=== PATIENT | male | born 1960 | race Caucasian/White ===

== ENCOUNTER 2017-03-14 14:07 | Inpatient (IN) ==
--- NOTE | 2017-03-14 14:38 | Emergency Department Note ---
Disposition Clinical Impression: Acute occipital temporal infarction, Acute renal insufficiency, Hyperglycemia, Dehydration Altered mental status Qualifiers: Altered mental status type: unspecified Qualified Code(s): R41.82 - Altered mental status, unspecified Disposition: Admitted As Inpatient General Adult HPI - General Chief complaint: ED Altered Mental Status Stated complaint: confusion this morning Time Seen by Provider: 03/14/17 14:15 Source: EMS Mode of arrival: EMS Limitations: no limitations Nursing Notes Reviewed: Yes Vital Signs Reviewed: Yes - History of Present Illness HPI Narrative: Mr. Jackson, a 56yo male, presents from home via EMS for evaluation of reported confusion. He was found in his apartment by his land lord who called EMS. [facility]; he completed his course of unknown antibiotic. He was found in his chair by EMS and has no recollection of events prior to that. Last known well was last night before going to bed (per patient). There is no family or other adult accompanying the patient. Patient is a poor historian. PMH unknown to him. Medications unknown to him. PMH: HTN, DM, CABG, CVA. ROS: POS: Headache Neg: fever, chills, nausea, vomiting, CP, dyspnea Pain Scale: 0 - Related Data Home Medications Medication Instructions Recorded Confirmed Acetaminophen [Tylenol] 1,000 mg PO BID PRN 03/14/17 03/14/17 Amoxicillin/Clavulanate [Augmentin] 875 mg PO BID 03/14/17 03/14/17 Aspirin Enteric Coated [Aspirin EC] 81 mg PO DAILY 03/14/17 03/14/17 Atorvastatin Calcium [Lipitor] 80 mg PO HS 03/14/17 03/14/17 Benzonatate [Tessalon] 100 mg PO Q8H PRN 03/14/17 03/14/17 Cholecalciferol (D-3) [Vitamin D] 2,000 unit PO DAILY 03/14/17 03/14/17 Clopidogrel [Plavix] 75 mg PO DAILY 03/14/17 03/14/17 Docusate [Colace] 200 mg PO DAILY PRN 03/14/17 03/14/17 Finasteride [Proscar] 5 mg PO DAILY 03/14/17 03/14/17 Gabapentin [Neurontin] 300 mg PO TID 03/14/17 03/14/17 Insulin NPH Human Isophane 30 unit SQ QAM 03/14/17 03/14/17 [Novolin N] Insulin NPH Human Isophane 35 unit SQ QPM 03/14/17 03/14/17 [Novolin N] Lisinopril [Zestril] 20 mg PO DAILY 03/14/17 03/14/17 Metoprolol [Lopressor] 125 mg PO BID 03/14/17 03/14/17 Nitroglycerin [Nitrostat] 0.4 mg SL Q5M PRN 03/14/17 03/14/17 Propylene Glycol/Peg 400 [Systane 1 drop BOTH EYES QID 03/14/17 03/14/17 0.3-0.4% Eye Drops] glipiZIDE [Glipizide] 20 mg PO BID 03/14/17 03/14/17 Allergies Allergy/AdvReac Type Severity Reaction Status Date / Time Iodinated Contrast- Oral and Allergy Rash Verified 03/14/17 15:53 IV Dye All systems ED: reviewed and negative except as stated. 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 He is not oriented to hospital, today's date, president, or recent hurricane events in [place]. He is in no acute distress. HEENT: No facial asymmetry. Head is normocephalic and atraumatic. PERRLA, EOMI. Nasal turbinates moist and pink. Posterior pharynx without exudates or cobblestoning. Trachea midline. Bilateral tympanic membranes completely obscured by cerumen. Cardiovascular: Heart regular rate and rhythm without clicks, rubs, gallops, or murmurs. No JVD. PMI nondisplaced. Pedal edema. Bilateral posterior tibial pulses 2/4 equal. Respiratory: Symmetric chest rise with good respiratory effort. Bilateral breath sounds are clear without wheezing, crackles, or rhonchi. Abdomen: Bowel sounds present normoactive x-4 quadrants. Abdomen is soft, nondistended. He has a periumbilical hernia which is reducible and tender; otherwise no abdominal tenderness. Musculoskeletal: Muscle strength 5/5 and symmetric bilaterally in upper and lower extremities. DTRs 2/4 and symmetric bilaterally in upper and lower extremities. Neuro: Cranial nerves II through XII without deficit. Sensation light touch intact. GCS 15. Negative Romberg. Patient is able to ambulate without difficulty. Psych: Patient's affect is appropriate for situation. - General Limitations: no limitations General appearance: alert, in no apparent distress Course Course Narrative: Patient presents from home via EMS where his landlord who is doing a well check found the patient sitting in his chair in his apartment and called EMS. Patient 's last recollection is going to bed last night. We have no past medical history within the [facility] system; patient is followed by [facility]. Patient is a poor historian and is unsure of his medications or the specifics of his past medical history. He is able answer some questions sometimes and other questions at other times. At no time is he able to answer all questions regarding the situation of his visit. Patient was treated one month ago for pneumonia; prescribed outpatient antibiotics which he reportedly completed. His only complaint at this time is congestion. Physical exam is grossly unremarkable with the exception of a umbilical hernia that is reducible and tender. 15:35 I spoke with [facility]. Patient's CT head without contrast is concerning for a small left subdural lobe infarct that appears to be acute. Because there is nobody to accompany the patient to provide a more accurate history and, per patient, his last known normal was last night (greater than 12 hours ago), he is not a candidate for TPA. I spoke with Dr. Borges of neurology to discuss the patient's clinical picture. He decreased TPA is contraindicated given the unknown onset of symptoms. I spoke with the admitting hospitalist who agrees to accept the patient with neuro consult. Vital Signs Temperature 98.1 F 03/14/17 14:09 Pulse Rate 102 03/14/17 14:09 Respiratory Rate 14 03/14/17 14:09 Blood Pressure 140/103 03/14/17 14:09 O2 Sat by Pulse Oximetry 94 03/14/17 14:09 Temperature 98.2 F 03/14/17 19:02 Pulse Rate 82 03/14/17 19:02 Respiratory Rate 20 03/14/17 19:02 Blood Pressure 149/109 03/14/17 19:02 O2 Sat by Pulse Oximetry 94 03/14/17 14:09 Oxygen Delivery Oxygen Delivery Room Air Medical Decision Making - Lab Data Lab results reviewed: Yes I reviewed the patient's lab results. Result diagrams: 03/14/17 14:53 03/14/17 14:53 Lab Results 03/14/17 03/14/17 03/14/17 Range/Units 14:23 14:53 14:53 WBC 10.7 (4.3-11.1) K/mcL RBC 5.47 (4.19-5.50) M/mcL Hgb 15.4 (12.9-16.9) g/dL Hct 45.9 (37.5-50.1) % MCV 83.9 (83.0-100.0) fL MCH 28.2 (28.0-33.3) pg MCHC 33.6 (31.6-35.5) g/dL RDW 13.0 (11.5-14.5) % Plt Count 238 (140-400) K/mcL MPV 10.1 (9.4-12.4) fL Immature Gran % 0.4 (0-4) % Seg Neutrophils % 73.6 % Lymphocytes % 18.8 % Monocytes % 6.1 % Eosinophils % 0.5 % Basophils % 0.6 % Neutrophils # 7.9 (1.6-8.9) K/mcL Lymphocytes # 2.0 (0.6-4.6) K/mcL Monocytes # 0.7 (0.0-1.3) K/mcL Eosinophils # 0.1 (0.0-0.6) K/mcL Basophils # 0.1 (0.0-0.2) K/mcL Carboxyhemoglobin (0-5) % Sodium 136 (136-145) mEq/L Potassium 5.0 H (3.5-4.5) mEq/L Chloride 103 (98-109) mEq/L Carbon Dioxide 23 (19-29) mEq/L BUN 27 H (8-26) mg/dL Creatinine 1.98 H (0.72-1.25) mg/dL Est GFR ( Amer) 42 L (> 60) Est GFR (Non-Af Amer) 35 L (> 60) BUN/Creatinine Ratio 14 (6-26) Glucose 263 H (70-99) mg/dL POC Glucose 246 H (58-89) Est Mean Plasma Glucose mg/dl Hemoglobin A1c ( - 5.6) % Calculated Osmolality 296 (280-300) Lactic Acid (0.5-2.2) mmol/L Calcium 10.6 (8.6-10.8) mg/dL Total Bilirubin 0.7 (0.2-1.2) mg/dL Direct Bilirubin 0.3 (0.0-0.5) mg/dL Indirect Bilirubin 0.4 (0.0-1.2) mg/dL AST 14 (5-34) Units/L ALT 9 (0-55) Units/L Alkaline Phosphatase 119 (38-126) Units/L Ammonia (18-72) mcmol/L Troponin I (0-0.03) ng/mL Serum Total Protein 8.3 (6.0-8.3) g/dL Albumin 3.4 L (3.5-5.0) g/dL Globulin 4.9 H (2.4-3.5) g/dL Albumin/Globulin Ratio 0.7 L (1.1-2.2) Urine Color (Yellow) Urine Clarity (Clear) Urine pH (5.0-8.0) pH Units Ur Specific [place] (1.010-1.025) Urine Protein (Neg-Trace) mg/dL Urine Glucose (UA) (Normal) mg/dL Urine Ketones (Negative) mg/dL Urine Blood (Negative) Urine Nitrite (Negative) Urine Bilirubin (Negative) Urine Urobilinogen (Normal) mg/dL Ur Leukocyte Esterase (Negative) Urine Microscopic RBC (0-3) per hpf Urine Microscopic WBC (0-3) per hpf Ur Squamous Epith Cells (None-Few) per lpf Urine Bacteria (None-Few) per hpf Hyaline Casts (None-Few) per lpf Ur Culture Indicated? (NO) Urine Opiates Screen (Uyeydj=992) ng/mL Ur Barbiturates Screen (Aubxfg=259) ng/mL Ur Phencyclidine Scrn (Cutoff=25) ng/mL Ur Amphetamines Screen (Jfzhmo=7759) ng/mL U Benzodiazepines Scrn (Fefvvj=145) ng/mL Urine Cocaine Screen (Cutoff= 300) ng/mL U Marijuana (THC) Screen (Cutoff = 50) ng/mL Ethyl Alcohol < 10 (0-10) mg/dL 03/14/17 03/14/17 03/14/17 Range/Units 14:53 14:53 14:53 WBC (4.3-11.1) K/mcL RBC (4.19-5.50) M/mcL Hgb (12.9-16.9) g/dL Hct (37.5-50.1) % MCV (83.0-100.0) fL MCH (28.0-33.3) pg MCHC (31.6-35.5) g/dL RDW (11.5-14.5) % Plt Count (140-400) K/mcL MPV (9.4-12.4) fL Immature Gran % (0-4) % Seg Neutrophils % % Lymphocytes % % Monocytes % % Eosinophils % % Basophils % % Neutrophils # (1.6-8.9) K/mcL Lymphocytes # (0.6-4.6) K/mcL Monocytes # (0.0-1.3) K/mcL Eosinophils # (0.0-0.6) K/mcL Basophils # (0.0-0.2) K/mcL Carboxyhemoglobin 3.2 (0-5) % Sodium (136-145) mEq/L Potassium (3.5-4.5) mEq/L Chloride (98-109) mEq/L Carbon Dioxide (19-29) mEq/L BUN (8-26) mg/dL Creatinine (0.72-1.25) mg/dL Est GFR ( Amer) (> 60) Est GFR (Non-Af Amer) (> 60) BUN/Creatinine Ratio (6-26) Glucose (70-99) mg/dL POC Glucose (58-89) Est Mean Plasma Glucose mg/dl Hemoglobin A1c ( - 5.6) % Calculated Osmolality (280-300) Lactic Acid (0.5-2.2) mmol/L Calcium (8.6-10.8) mg/dL Total Bilirubin (0.2-1.2) mg/dL Direct Bilirubin (0.0-0.5) mg/dL Indirect Bilirubin (0.0-1.2) mg/dL AST (5-34) Units/L ALT (0-55) Units/L Alkaline Phosphatase (38-126) Units/L Ammonia 25 (18-72) mcmol/L Troponin I 0.01 (0-0.03) ng/mL Serum Total Protein (6.0-8.3) g/dL Albumin (3.5-5.0) g/dL Globulin (2.4-3.5) g/dL Albumin/Globulin Ratio (1.1-2.2) Urine Color (Yellow) Urine Clarity (Clear) Urine pH (5.0-8.0) pH Units Ur Specific [place] (1.010-1.025) Urine Protein (Neg-Trace) mg/dL Urine Glucose (UA) (Normal) mg/dL Urine Ketones (Negative) mg/dL Urine Blood (Negative) Urine Nitrite (Negative) Urine Bilirubin (Negative) Urine Urobilinogen (Normal) mg/dL Ur Leukocyte Esterase (Negative) Urine Microscopic RBC (0-3) per hpf Urine Microscopic WBC (0-3) per hpf Ur Squamous Epith Cells (None-Few) per lpf Urine Bacteria (None-Few) per hpf Hyaline Casts (None-Few) per lpf Ur Culture Indicated? (NO) Urine Opiates Screen (Grovqy=009) ng/mL Ur Barbiturates Screen (Ybyjsp=774) ng/mL Ur Phencyclidine Scrn (Cutoff=25) ng/mL Ur Amphetamines Screen (Qoqmcg=3802) ng/mL U Benzodiazepines Scrn (Jccjhv=799) ng/mL Urine Cocaine Screen (Cutoff= 300) ng/mL U Marijuana (THC) Screen (Cutoff = 50) ng/mL Ethyl Alcohol (0-10) mg/dL 03/14/17 03/14/17 03/14/17 Range/Units 14:53 14:53 15:28 WBC (4.3-11.1) K/mcL RBC (4.19-5.50) M/mcL Hgb (12.9-16.9) g/dL Hct (37.5-50.1) % MCV (83.0-100.0) fL MCH (28.0-33.3) pg MCHC (31.6-35.5) g/dL RDW (11.5-14.5) % Plt Count (140-400) K/mcL MPV (9.4-12.4) fL Immature Gran % (0-4) % Seg Neutrophils % % Lymphocytes % % Monocytes % % Eosinophils % % Basophils % % Neutrophils # (1.6-8.9) K/mcL Lymphocytes # (0.6-4.6) K/mcL Monocytes # (0.0-1.3) K/mcL Eosinophils # (0.0-0.6) K/mcL Basophils # (0.0-0.2) K/mcL Carboxyhemoglobin (0-5) % Sodium (136-145) mEq/L Potassium (3.5-4.5) mEq/L Chloride (98-109) mEq/L Carbon Dioxide (19-29) mEq/L BUN (8-26) mg/dL Creatinine (0.72-1.25) mg/dL Est GFR ( Amer) (> 60) Est GFR (Non-Af Amer) (> 60) BUN/Creatinine Ratio (6-26) Glucose (70-99) mg/dL POC Glucose (58-89) Est Mean Plasma Glucose 275 mg/dl Hemoglobin A1c 11.2 H ( - 5.6) % Calculated Osmolality (280-300) Lactic Acid 1.4 (0.5-2.2) mmol/L Calcium (8.6-10.8) mg/dL Total Bilirubin (0.2-1.2) mg/dL Direct Bilirubin (0.0-0.5) mg/dL Indirect Bilirubin (0.0-1.2) mg/dL AST (5-34) Units/L ALT (0-55) Units/L Alkaline Phosphatase (38-126) Units/L Ammonia (18-72) mcmol/L Troponin I (0-0.03) ng/mL Serum Total Protein (6.0-8.3) g/dL Albumin (3.5-5.0) g/dL Globulin (2.4-3.5) g/dL Albumin/Globulin Ratio (1.1-2.2) Urine Color Yellow (Yellow) Urine Clarity Clear (Clear) Urine pH 5.5 (5.0-8.0) pH Units Ur Specific [place] > 1.030 H (1.010-1.025) Urine Protein 100 H (Neg-Trace) mg/dL Urine Glucose (UA) >=1000 H (Normal) mg/dL Urine Ketones 15 H (Negative) mg/dL Urine Blood Negative (Negative) Urine Nitrite Negative (Negative) Urine Bilirubin Small H (Negative) Urine Urobilinogen Normal (Normal) mg/dL Ur Leukocyte Esterase Negative (Negative) Urine Microscopic RBC 5-15 H (0-3) per hpf Urine Microscopic WBC 0-3 (0-3) per hpf Ur Squamous Epith Cells Many H (None-Few) per lpf Urine Bacteria None Seen (None-Few) per hpf Hyaline Casts Few (None-Few) per lpf Ur Culture Indicated? NO (NO) Urine Opiates Screen (Nlvubv=194) ng/mL Ur Barbiturates Screen (Gllglc=554) ng/mL Ur Phencyclidine Scrn (Cutoff=25) ng/mL Ur Amphetamines Screen (Oajtpo=6419) ng/mL U Benzodiazepines Scrn (Ufwsyp=997) ng/mL Urine Cocaine Screen (Cutoff= 300) ng/mL U Marijuana (THC) Screen (Cutoff = 50) ng/mL Ethyl Alcohol (0-10) mg/dL 03/14/17 Range/Units 15:28 WBC (4.3-11.1) K/mcL RBC (4.19-5.50) M/mcL Hgb (12.9-16.9) g/dL Hct (37.5-50.1) % MCV (83.0-100.0) fL MCH (28.0-33.3) pg MCHC (31.6-35.5) g/dL RDW (11.5-14.5) % Plt Count (140-400) K/mcL MPV (9.4-12.4) fL Immature Gran % (0-4) % Seg Neutrophils % % Lymphocytes % % Monocytes % % Eosinophils % % Basophils % % Neutrophils # (1.6-8.9) K/mcL Lymphocytes # (0.6-4.6) K/mcL Monocytes # (0.0-1.3) K/mcL Eosinophils # (0.0-0.6) K/mcL Basophils # (0.0-0.2) K/mcL Carboxyhemoglobin (0-5) % Sodium (136-145) mEq/L Potassium (3.5-4.5) mEq/L Chloride (98-109) mEq/L Carbon Dioxide (19-29) mEq/L BUN (8-26) mg/dL Creatinine (0.72-1.25) mg/dL Est GFR ( Amer) (> 60) Est GFR (Non-Af Amer) (> 60) BUN/Creatinine Ratio (6-26) Glucose (70-99) mg/dL POC Glucose (58-89) Est Mean Plasma Glucose mg/dl Hemoglobin A1c ( - 5.6) % Calculated Osmolality (280-300) Lactic Acid (0.5-2.2) mmol/L Calcium (8.6-10.8) mg/dL Total Bilirubin (0.2-1.2) mg/dL Direct Bilirubin (0.0-0.5) mg/dL Indirect Bilirubin (0.0-1.2) mg/dL AST (5-34) Units/L ALT (0-55) Units/L Alkaline Phosphatase (38-126) Units/L Ammonia (18-72) mcmol/L Troponin I (0-0.03) ng/mL Serum Total Protein (6.0-8.3) g/dL Albumin (3.5-5.0) g/dL Globulin (2.4-3.5) g/dL Albumin/Globulin Ratio (1.1-2.2) Urine Color (Yellow) Urine Clarity (Clear) Urine pH (5.0-8.0) pH Units Ur Specific [place] (1.010-1.025) Urine Protein (Neg-Trace) mg/dL Urine Glucose (UA) (Normal) mg/dL Urine Ketones (Negative) mg/dL Urine Blood (Negative) Urine Nitrite (Negative) Urine Bilirubin (Negative) Urine Urobilinogen (Normal) mg/dL Ur Leukocyte Esterase (Negative) Urine Microscopic RBC (0-3) per hpf Urine Microscopic WBC (0-3) per hpf Ur Squamous Epith Cells (None-Few) per lpf Urine Bacteria (None-Few) per hpf Hyaline Casts (None-Few) per lpf Ur Culture Indicated? (NO) Urine Opiates Screen Negative (Magare=010) ng/mL Ur Barbiturates Screen Negative (Lljrya=206) ng/mL Ur Phencyclidine Scrn Negative (Cutoff=25) ng/mL Ur Amphetamines Screen Negative (Jxkiho=3153) ng/mL U Benzodiazepines Scrn Negative (Uobgqx=751) ng/mL Urine Cocaine Screen Negative (Cutoff= 300) ng/mL U Marijuana (THC) Screen Negative (Cutoff = 50) ng/mL Ethyl Alcohol (0-10) mg/dL - Radiology Data Radiology results reviewed: Yes I reviewed the patient's radiology results. Head CT 03/14/17 14:40 IMPRESSION: Focal area of cortical hypoattenuation in the medial aspect of the left occipital lobe may represent an acute infarct. MRI with diffusion-weighted imaging would be more sensitive. Partial opacification of left maxillary sinus and bilateral mastoid air cells may represent chronic mastoiditis and sinusitis. D/ / 03/14/2017 15:41:27 Corey Kam MD / [email or web address] Interpreting Provider: Corey Kam MD Chest X-Ray 03/14/17 14:55 IMPRESSION: No acute disease. D/ / Nigel Bloom MD / Nigel Bloom MD Interpreting Provider: Nigel Bloom MD - EKG Data EKG #1 EKG attestation: Yes I reviewed and interpreted this EKG. EKG results narrative: EKG dated 03/14/17 at 14:14 and interpreted as a sinus rhythm with a rate of 90. Normal intervals. Normal axis. Nonspecific ST-T changes. Right bundle branch block. Compared to previous dated 01/20/2012 showing no acute ischemic changes; right bundle-branch present on comparative EKG. Attestation Statement - Attestation Attestation: I examined this patient and my medical decision-making was reviewed with the Resident Physician, Dr. Mahmood. I agree with the documented findings, disposition and treatment plan as described except to the extent set forth below. Patient is a 56-year-old white male who is brought to us by EMS today with altered mental status. Patient was found by her landlord when he went to check on him as he had not seen him in a few days and found him sitting in a chair with confusion and difficulty describing events that happened prior to the current timeframe. Patient is poor historian and inconsistent with his answers. Despite this his speech is clear, he has no facial droop, he has no focal weakness or deficits on exam. He complains of a chronic cough related to a recent bout of pneumonia for which he had finished antibiotics. Patient with no other complaints. Patient's physical exam findings as documented in the chart. Other than memory loss patient has no acute focal neurologic deficits on examination. EKG did not show any acute findings of ischemia. We initiated a broad workup as it was difficult to ascertain an accurate history. We were contacted by the radiologist in regards to an abnormal head CT which shows an acute occipital infarct. The best we can ascertain from his history is that he consistently reports that he started feeling off 2-3 days ago. His "feeling off" means he was feeling lightheaded and having a coarse sounding cough and mild generalized headache. Patient with stable neurologic exam overtime throughout ED course. Patient also with renal insufficiency. Case was discussed with neurology who was consulate from the ED. Patient was also discussed with the hospitalist who accepted the patient for admission for further evaluation and treatment. Blood pressure is stable. Patient will receive aspirin and IV fluids and will be admitted for further evaluation and management of ED findings
[2017-03-14 15:06] LABS: Basophils # 0.1 K/mcL (0.0-0.2); Basophils % 0.6 %; Eosinophils # 0.1 K/mcL (0.0-0.6); Eosinophils % 0.5 %; Hematocrit 45.9 % (37.5-50.1); Hemoglobin 15.4 g/dL (12.9-16.9); Immature Granulocytes % 0.4 % (0-4); Lymphocytes % 18.8 %; Mean Corpuscular HGB Conc 33.6 g/dL (31.6-35.5); Mean Corpuscular Hemoglobin 28.2 pg (28.0-33.3); Mean Corpuscular Volume 83.9 fL (83.0-100.0); Mean Platelet Volume 10.1 fL (9.4-12.4); Monocytes # 0.7 K/mcL (0.0-1.3); Monocytes % 6.1 %; Neutrophils # 7.9 K/mcL (1.6-8.9); Platelet Count 238 K/mcL (140-400); Red Blood Count 5.47 M/mcL (4.19-5.50); Segmented Neutrophils % 73.6 %
[2017-03-14 15:20] LABS: Alanine Aminotransferase 9 Units/L (0-55); Albumin 3.4 g/dL (3.5-5.0); Albumin/Globulin Ratio 0.7 (1.1-2.2); Alkaline Phosphatase 119 Units/L (38-126); Aspartate Amino Transferase 14 Units/L (5-34); BUN/Creatinine Ratio 14 (6-26); Bilirubin,Direct 0.3 mg/dL (0.0-0.5); Bilirubin,Indirect 0.4 mg/dL (0.0-1.2); Bilirubin,Total 0.7 mg/dL (0.2-1.2); Blood Urea Nitrogen 27 mg/dL (8-26); Calcium 10.6 mg/dL (8.6-10.8); Carbon Dioxide 23 mEq/L (19-29); Chloride 103 mEq/L (98-109); Globulin 4.9 g/dL (2.4-3.5); Glucose 263 mg/dL (70-99); Osmolality,Calculated 296 (280-300); Sodium 136 mEq/L (136-145); Total Protein 8.3 g/dL (6.0-8.3); eGFR For African Americans 42 (> 60); eGFR For Non-African Americans 35 (> 60)
[2017-03-14 15:23] LABS: Ethanol < 10 mg/dL (0-10)
[2017-03-14 15:39] LABS: Bilirubin,Urine Small (Negative); Blood,Urine Negative (Negative); Clarity,Urine Clear (Clear); Color,Urine Yellow (Yellow); Glucose,Urine (UA) >=1000 mg/dL (Normal); Ketones,Urine 15 mg/dL (Negative); Leukocyte Esterase,Urine Negative (Negative); Nitrite,Urine Negative (Negative); PH,Urine 5.5 pH Units (5.0-8.0); Protein,Urine 100 mg/dL (Neg-Trace); Specific Gravity,Urine > 1.030 (1.010-1.025); Urobilinogen,Urine Normal (Normal)
[2017-03-14 15:41] LABS: Bacteria,Urine None Seen per hpf (None-Few); Hyaline Casts,Urine Few per lpf (None-Few); Squamous Epithelial Cell,Urine Many per lpf (None-Few); WBC,Urine 0-3 per hpf (0-3)
[2017-03-14] MEDS ORDERED: Calcium Gluconate 1,000 MG in D5% in Water 100 ML IVPB ONE (15:43)
[2017-03-14 15:44] LABS: Amphetamine Screen,Urine Negative ng/mL (Cutoff=1000); Barbiturate Screen,Urine Negative ng/mL (Cutoff=200); Benzodiazepines Screen,Urine Negative ng/mL (Cutoff=200); Cannabinoid Screen,Urine Negative ng/mL (Cutoff = 50); Cocaine Screen,Urine Negative ng/mL (Cutoff= 300); Opiate Screen,Urine Negative ng/mL (Cutoff=300); Phencyclidine Screen,Urine Negative ng/mL (Cutoff=25)
[2017-03-14] MEDS ORDERED: 0.9 % Sodium Chloride 1,000 ML IVC SCH (15:45)
[2017-03-14] MEDS ORDERED: Aspirin 81 MG TAB.CHEW PO ONE (16:31)
[2017-03-14] MEDS ORDERED: D5% in Water 1,000 ML IVC PRN (20:18)
[2017-03-14] MEDS ORDERED: Naloxone 0.4 MG/ML INJ IVP PRN (20:18)
[2017-03-14] MEDS ORDERED: Dextrose Gel 15 GM PO PRN ×2 (20:18)
[2017-03-14] MEDS ORDERED: Acetaminophen 325 MG TABLET PO PRN (20:18)
[2017-03-14] MEDS ORDERED: Ondansetron 4 MG/2 ML VIAL IVP PRN (20:18)
[2017-03-14] MEDS ORDERED: *HR* Dextrose 50 % in Water (Syg) 50 ML SYRINGE IVP PRN (20:18)
[2017-03-14] MEDS ORDERED: Nitroglycerin 0.4 MG TAB.SUBL SL PRN (20:31)
[2017-03-14 21:09] LABS: Hemoglobin A1C 11.2 %
--- NOTE | 2017-03-14 21:12 | Internal Med History&Physical ---
Date of Encounter: 03/14/17 Time of Encounter: 19:40 Assessment and Plan (1) Stroke Current visit: Yes Status: Suspected 1. Will proceed with stroke work-up and protocol. 2. Presently, patient has no focal deficits. 3. Will order MRI brain, ECHO, and carotid Dopplers. 4. Neurology has been consulted through ER. 5. PT/OT/ST consults. 6. Continue ASA, Plavix, and STATIN. Qualifiers: CVA mechanism: other Qualified Code(s): I63.8 - Other cerebral infarction (2) Acute kidney injury Current visit: Yes Status: Acute 1. Hold KAYLEEN. 2. Gingerly hydrate with IVF. 3. Monitor renal function. 4. May need nephrology consult if does not improve. 5. No old records available presently to compare. (3) Insulin dependent diabetes mellitus Current visit: Yes Status: Chronic 1. Hold oral home meds. 2. Will provide SSI and monitor glucose so as to avoid hypoglycemia. 3. May need to resume home basal dosing insulin (NPH) soon, but will monitor first and adjust as necessary. (4) CAD (coronary artery disease) Current visit: Yes Status: Chronic 1. NO acute process. 2. Continue home meds as appropriate. 3. ECHO ordered for the morning. Qualifiers: Coronary Disease-Associated Artery/Lesion type: [place] artery [place] vs. transplanted heart: [place] heart Associated angina: without angina Qualified Code(s): I25.10 - Atherosclerotic heart disease of [place] coronary artery without angina pectoris (5) DVT prophylaxis Current visit: Yes Status: Acute 1. Heparin SQ. Internal Medicine - H&P: HPI Chief complaint: possible stroke; altered mental status Admitted From: Emergency Dept Plans for Post Hospital Care: Home History of present illness: Mr. Squires is a 56 year old male who presented to the ER today by EMS after his landlord found him confused, disoriented, and initially unresponsive. Workup in the ER was concerning for possible acute stroke. However, his last known well was unknown and presumably last night. Therefore, he was not a TPA candidate. He was admitted to hospitalist service thereafter. Upon my assessment of the patient, he is alert, oriented 3 now, and denies any complaints presently. He is still somewhat confused as to what happened over last 24 hours. However, he does realize he is in the hospital and that he might have had a stroke. He denies any new numbness, weakness, paralysis, dysarthria, dysphagia, and/or paresthesias. He states he had a stroke about a year ago and he does have some memory loss from his old stroke. [facility]. Unfortunately, we have no old records in our system. I reviewed his ER records and imaging studies. He is unable to provide much further history other than history obtained in the ER and by myself. He does state he has been recently treated for pneumonia and is still on antibiotics currently. He denies any chest pain, worsening cough, wheezing, or shortness of breath. He still has a cough but it is slowly subsiding. Past Med Surg Social Fam HX - Past Medical History Attestation: Yes The following information was validated with the patient. Source: patient, other (ER records) Medical history: coronary artery disease, diabetes, hypertension, other (stroke -- one year ago) Psychiatric history: depression - Past Surgical History Surgical History: coronary bypass (CABG) - Social History Smoking Status: Former smoker Smokeless Tobacco Status: No Alcohol use: none Drug use: none Current living situation: Home - Independent Activity Level: Independent ambulation Recent Out of Country Travel Within the Last 8 Weeks: No - Family History Mother History Unknown: Yes Living Status: Father History Unknown: Yes Living Status: Internal Medicine - H&P: Meds Acetaminophen [Tylenol] 1,000 mg PO BID PRN 03/14/17 [History] Amoxicillin/Clavulanate [Augmentin] 875 mg PO BID 03/14/17 [History] Aspirin Enteric Coated [Aspirin EC] 81 mg PO DAILY 03/14/17 [History] Atorvastatin Calcium [Lipitor] 80 mg PO HS 03/14/17 [History] Benzonatate [Tessalon] 100 mg PO Q8H PRN 03/14/17 [History] Cholecalciferol (D-3) [Vitamin D] 2,000 unit PO DAILY 03/14/17 [History] Clopidogrel [Plavix] 75 mg PO DAILY 03/14/17 [History] Docusate [Colace] 200 mg PO DAILY PRN 03/14/17 [History] Finasteride [Proscar] 5 mg PO DAILY 03/14/17 [History] Gabapentin [Neurontin] 300 mg PO TID 03/14/17 [History] Insulin NPH Human Isophane [Novolin N] 30 unit SQ QAM 03/14/17 [History] Insulin NPH Human Isophane [Novolin N] 35 unit SQ QPM 03/14/17 [History] Lisinopril [Zestril] 20 mg PO DAILY 03/14/17 [History] Metoprolol [Lopressor] 125 mg PO BID 03/14/17 [History] Nitroglycerin [Nitrostat] 0.4 mg SL Q5M PRN 03/14/17 [History] Propylene Glycol/Peg 400 [Systane 0.3-0.4% Eye Drops] 1 drop BOTH EYES QID 03/14 [History] glipiZIDE [Glipizide] 20 mg PO BID 03/14/17 [History] 3 Allergy/AdvReac Type Severity Reaction Status Date / Time Iodinated Contrast- Oral and Allergy Rash Verified 03/14/17 15:53 IV Dye - Constitutional Constitutional: no chills, no fever(s), no falls - EENT Eyes: no blurry vision, no change in vision Ears: no ear pain, no tinnitus Nose, mouth and throat: nasal congestion, no sinus pressure, no sore throat - Cardiovascular Cardiovascular ROS IM: no chest pain, no dyspnea, no dyspnea on exertion - Respiratory Respiratory: cough, wheezing, chest congestion, no dyspnea, no hemoptysis, no dyspnea on exertion - Gastrointestinal Gastrointestinal: no abdominal pain, no diarrhea, no hematemesis, no hematochezia, no melena, no nausea, no vomiting - Genitourinary Genitourinary ROS male: no dysuria, no flank pain, no hematuria - Musculoskeletal Musculoskeletal ROS IM: no back pain - Integumentary Integumentary IM: no rash, no jaundice - Neurological Neurological ROS: confusion, paresthesias (feet bilaterally -- old), weakness, no disequilibrium, no dizziness, no focal weakness - Psychiatric Psychiatric: no anxiety, no depression - Endocrine Endocrine IM: no polydipsia, no polyuria - Hematologic/Lymphatic Hematologic/Lymphatic: no easy bruising, no lymphadenopathy - Allergic/Immunologic Allergic/Immunologic: no GI upset with certain foods - Constitutional Vitals: Temp Pulse Resp BP Pulse Ox 98.2 F 82 20 149/109 94 03/14/17 19:02 03/14/17 19:02 03/14/17 19:02 03/14/17 19:02 03/14/17 14:09 General appearance: Present: A&O X 3, no acute distress, answers questions appropriately (a little slow and confused at times, but able to provide some history) - Head Head exam: Present: atraumatic, normal inspection - Expanded Head Exam Head exam expanded: Absent: abrasion, contusion, general tenderness - Eye Eye exam: Present: EOMI, normal appearance, PERRL. Absent: scleral icterus Pupils: Present: normal accommodation - ENT ENT exam: Present: mucous membranes moist, normal exam - Neck Neck exam general surgery: Present: full ROM, supple. Absent: tenderness - Expanded Neck Exam Neck exam: Absent: carotid bruit - Respiratory Respiratory exam: Present: CTAB, rhonchi. Absent: chest wall tenderness, rales , respiratory distress, wheezes - Cardiovascular Cardiovascular exam: Present: distant heart sounds, RRR, +S1, +S2. Absent: diastolic murmur, systolic murmur - GI/Abdominal GI/Abdominal exam: Present: normal bowel sounds, soft. Absent: hepatomegaly, mass, splenomegaly Additional comments: umbilical hernia - Extremities Exam Extremities exam: Present: full ROM, warm, radial pulses palpable and symmetrical. Absent: calf tenderness, joint swelling, pedal edema - Back Exam Back exam: Present: normal inspection. Absent: CVA tenderness (L), CVA tenderness (R) - Neurological Exam Neurological exam: Present: alert, CN II-XII intact, oriented X3, no focal deficits, strengths equal and symetr throughout. Absent: pronater drift, facial droop, speech deficit Additional comments: decreased sensation and mild parasthesias in both feet -- old - Psychiatric Psychiatric exam: Present: normal affect, normal mood. Absent: anxious, depressed - Skin Skin exam: Present: dry, warm. Absent: rash Internal Med - H&P Results - Labs CBC & Chem 7: 03/14/17 14:53 03/14/17 14:53 - EKG Data -: EKG Interpreted by Myself EKG shows normal: sinus rhythm - EKG Data Prior EKG available for review: no EKG comments: 03/14/17 21:[address]-T changes - Diagnostic Studies Chest x-ray Status: image reviewed by me (negative) CT scan - head Additional comments: Report reviewed -- possible acute infarct in left occipital lobe
[2017-03-14] MEDS: *HR* Heparin 5,000 UNIT/ML VIAL SQ SCH (23:10)
[2017-03-14] MEDS: Gabapentin 300 MG CAPSULE PO SCH (23:11)
[2017-03-14] MEDS: 0.9 % Sodium Chloride 1,000 ML IVC SCH (23:12)
[2017-03-14] MEDS: SYSTANE OP SCH (23:12)
[2017-03-15 04:38] LABS: INR 1.1; Prothrombin Time 11.8 Seconds (9.4-12.1)
[2017-03-15 04:41] LABS: Activated Partial Thrombo Time 28.6 Seconds (26.0-36.0)
[2017-03-15 04:46] LABS: Basophils # 0.1 K/mcL (0.0-0.2); Basophils % 0.6 %; Eosinophils # 0.2 K/mcL (0.0-0.6); Eosinophils % 1.3 %; Hematocrit 46.3 % (37.5-50.1); Hemoglobin 15.3 g/dL (12.9-16.9); Immature Granulocytes % 0.5 % (0-4); Lymphocytes # 3.1 K/mcL (0.6-4.6); Mean Corpuscular Hemoglobin 27.9 pg (28.0-33.3); Mean Corpuscular Volume 84.3 fL (83.0-100.0); Mean Platelet Volume 10.5 fL (9.4-12.4); Monocytes # 0.8 K/mcL (0.0-1.3); Neutrophils # 7.2 K/mcL (1.6-8.9); Platelet Count 289 K/mcL (140-400); Red Blood Count 5.49 M/mcL (4.19-5.50); Segmented Neutrophils % 63.6 %
[2017-03-15 04:50] LABS: Albumin 3.3 g/dL (3.5-5.0); Albumin/Globulin Ratio 0.7 (1.1-2.2); Bilirubin,Total 0.6 mg/dL (0.2-1.2); Calcium 10.4 mg/dL (8.6-10.8); Chol/HDL Ratio 5.3 (0-4.9); Globulin 4.6 g/dL (2.4-3.5); Magnesium 1.8 mg/dL (1.6-2.6); Potassium 4.4 mEq/L (3.5-4.5); Total Protein 7.9 g/dL (6.0-8.3)
[2017-03-15] MEDS: *HR* Heparin 5,000 UNIT/ML VIAL SQ SCH ×2 (06:22→17:12)
[2017-03-15] MEDS ORDERED: Perflutren Lipid Microsphere 1.3 ML in 0.9 % Sodium Chloride 8.7 ML IVP ONE (09:54)
[2017-03-15] MEDS: Aspirin 81 MG TAB.CHEW PO SCH (10:59)
[2017-03-15] MEDS: Finasteride 5 MG TABLET PO SCH (10:59)
[2017-03-15] MEDS: Insulin LISPRO 300 UNITS/3 ML VIAL SQ SCH ×4 (10:59→21:37)
[2017-03-15] MEDS: Cholecalciferol (D-3) 1,000 UNIT TABLET PO SCH (10:59)
[2017-03-15] MEDS: Gabapentin 300 MG CAPSULE PO SCH ×3 (10:59→21:39)
[2017-03-15] MEDS: SYSTANE OP SCH ×4 (11:02→21:39)
--- NOTE | 2017-03-15 12:37 | Neurology - Consult Note ---
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 Will recommend full stroke work up including carotid artery doppler study, Since this is a young patient will recommend TTE to assess source of embolus, Get MRA of brain and neck without contrast. Continue aspirin and plavis, statin therapy for now for secondary CVA prevention. Continue medical and supportive care Qualifiers: CVA mechanism: other Qualified Code(s): I63.8 - Other cerebral infarction History of Present Illness Chief complaint: altered mental status and visual changes HPI: Mr. Squires is a 56 year old male with PMH significant for HTN, DM, CAD, obesity who developed acute onset of mental status changes. medical records says that he was found by EMS to be initially unresponsive. Now he says that he had two strokes first one occurred abut two weeks ago and that he was given medications to treat the stroke. When asked about the stroke symptoms he said he does not know. Then few days later he developed some visual changes, described as seeing blurry vision with color changes and it lasted about 2 days and now he has no problems. 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 Patient is taking aspirin and Plavix. He has no known history of atrial fibrillation or other cardiac dysarrhythmia. Currently has no focal deficits. Is able to walk with no difficulty. Language is intact Past Med Surg Social Fam HX - Past Medical History Medical history: diabetes, hypertension Psychiatric history: depression - Past Surgical History Surgical History: coronary bypass (CABG) - Social History Smoking Status: Former smoker Smokeless Tobacco Status: No Alcohol use: none Drug use: none - Family History Mother History Unknown: Yes Living Status: Father History Unknown: Yes Living Status: Medications and Allergies Acetaminophen [Tylenol] 1,000 mg PO BID PRN 03/14/17 [History] Amoxicillin/Clavulanate [Augmentin] 875 mg PO BID 03/14/17 [History] Aspirin Enteric Coated [Aspirin EC] 81 mg PO DAILY 03/14/17 [History] Atorvastatin Calcium [Lipitor] 80 mg PO HS 03/14/17 [History] Benzonatate [Tessalon] 100 mg PO Q8H PRN 03/14/17 [History] Cholecalciferol (D-3) [Vitamin D] 2,000 unit PO DAILY 03/14/17 [History] Clopidogrel [Plavix] 75 mg PO DAILY 03/14/17 [History] Docusate [Colace] 200 mg PO DAILY PRN 03/14/17 [History] Finasteride [Proscar] 5 mg PO DAILY 03/14/17 [History] Gabapentin [Neurontin] 300 mg PO TID 03/14/17 [History] Insulin NPH Human Isophane [Novolin N] 30 unit SQ QAM 03/14/17 [History] Insulin NPH Human Isophane [Novolin N] 35 unit SQ QPM 03/14/17 [History] Lisinopril [Zestril] 20 mg PO DAILY 03/14/17 [History] Metoprolol [Lopressor] 125 mg PO BID 03/14/17 [History] Nitroglycerin [Nitrostat] 0.4 mg SL Q5M PRN 03/14/17 [History] Propylene Glycol/Peg 400 [Systane 0.3-0.4% Eye Drops] 1 drop BOTH EYES QID 03/14 [History] glipiZIDE [Glipizide] 20 mg PO BID 03/14/17 [History] 3 Allergy/AdvReac Type Severity Reaction Status Date / Time Iodinated Contrast- Oral and Allergy Rash Verified 03/14/17 15:53 IV Dye All Systems: A 10-system review of systems was performed and is negative for pertinent findings except as documented above in the HPI. Physical Examination - Vital Signs Vital Signs: Initial Vital Signs Temp Pulse Resp BP Pulse Ox 98.1 F 102 14 140/103 94 03/14/17 14:03/14/17 14:03/14/17 14:03/14/17 14:03/14/17 14:09 - Constitutional General appearance: comfortable - Neurologic Sensorimotor examination: intact Detailed motor examination: grossly full strength in all extremities Motor examination - right side: 5/5: deltoids, biceps, triceps, wrist flexion, wrist extension, heading pinner, hip flexors, tibialis Anterior, quadriceps, toe extension (EHL), plantarflexion Motor examination - left side: 5/5: deltoids, biceps, triceps, wrist flexion, wrist extension, hip flexors, heading pinner, quadriceps, tibialis Anterior, toe extension (EHL), plantarflexion Detailed sensory examination: intact Reflexes: Biceps: 1+, Triceps: 1+, Brachioradialis: 1+, Patella: 1+, Achilles: 1 + Mental Status Examination: awake, alert, oriented to person, oriented to place, oriented to time, follows commands appropriately, answers questions appropriately, no agnosia, no aphasia, no aproxia Cranial nerve examination: PERRL, EOMI, visual [place] intact, corneal reflexes brisk symmetrically, sensory to face intact, mastication intact, no facial asymmetry is present, no dysarthria, hearing is intact symmetrically, soft palate elevates bilaterally upon phonation, gag reflex intact, flexes SCM and trapezius muscles symmetrically with full power, tongue protrudes midline, no atrophy or facial fasiculations present Cerebellar examination: no dysmetria, performs finger to nose and heel to doss symmetrically without ataxia, no gait ataxia, no truncal ataxia, no difficulty with rapid alternating movements Results - Laboratory Findings CBC and BMP: 03/15/17 04:17 03/15/17 04:17 Abnormal lab findings: Abnormal lab results WBC 11.4 K/mcL (4.3-11.1) H 03/15/17 04:17 MCH 27.9 pg (28.0-33.3) L 03/15/17 04:17 Sodium 135 mEq/L (136-145) L 03/15/17 04:17 BUN 29 mg/dL (8-26) H 03/15/17 04:17 Creatinine 1.92 mg/dL (0.72-1.25) H 03/15/17 04:17 Est GFR ( Amer) 44 (> 60) L 03/15/17 04:17 Est GFR (Non-Af Amer) 36 (> 60) L 03/15/17 04:17 Glucose 248 mg/dL (70-99) H 03/15/17 04:17 POC Glucose 329 (58-89) H 03/15/17 11:00 Hemoglobin A1c 11.2 % (-5.6) H 03/14/17 14:53 Albumin 3.3 g/dL (3.5-5.0) L 03/15/17 04:17 Globulin 4.6 g/dL (2.4-3.5) H 03/15/17 04:17 Albumin/Globulin Ratio 0.7 (1.1-2.2) L 03/15/17 04:17 Triglycerides 270 mg/dL (< 150) H 03/15/17 04:17 VLDL Cholesterol, Calc 54 mg/dL (< 31) H 03/15/17 04:17 HDL Cholesterol 35 mg/dL (40-59) L 03/15/17 04:17 Cholesterol/HDL Ratio 5.3 (0-4.9) H 03/15/17 04:17 Ur Specific [place] > 1.030 (1.010-1.025) H 03/14/17 15:28 Urine Protein 100 mg/dL (Neg-Trace) H 03/14/17 15:28 Urine Glucose (UA) >=1000 mg/dL (Normal) H 03/14/17 15:28 Urine Ketones 15 mg/dL (Negative) H 03/14/17 15:28 Urine Bilirubin Small (Negative) H 03/14/17 15:28 Urine Microscopic RBC 5-15 per hpf (0-3) H 03/14/17 15:28 Ur Squamous Epith Cells Many per lpf (None-Few) H 03/14/17 15:28 Consult Discharge Plan - Plan [facility]: [facility] [Primary Care Provider[facility] -
--- NOTE | 2017-03-15 16:02 | Electrocardiograph Report ---
[place] [address] Test Date: 2017-03-14 Pat Name: Alfredo Squires Department: 104 Room: 2NE27 Gender: M Doctor Podiatric Medicine: TMR : 1960 Requested By: Krzysztof Mahmood Order Number: [id number] Reading MD: Marcello Martell MD Measurements Intervals [place] Rate: 101 P: [place]: 135 QRS: 0 QRSD: 0 T: 0 QT: 0 QTc: 0 Interpretive Statements SINUS TACHYCARDIA POOR R WAVE PROGRESSION Electronically Signed On 03-15-2017 16:01:13 EDT by Marcello Martell MD
--- NOTE | 2017-03-15 16:09 | Electrocardiograph Report ---
[address] [address] Test Date: 2017-03-14 Pat Name: Alfredo Squires Department: 111 Room: 2NE27 Gender: Trial Paralegal: FRITZ : 1960 Requested By: Shin Mejia Order Number: [id number] Reading MD: Marcello Martell MD Measurements Intervals [place] Rate: 77 P: 72 MD: 169 QRS: 2 QRSD: 101 T: 74 QT: 352 QTc: 383 Interpretive Statements SINUS RHYTHM Electronically Signed On 03-15-2017 16:07:45 EDT by Marcello Martell MD
[2017-03-15] MEDS: 0.9 % Sodium Chloride 1,000 ML IVC SCH ×2 (17:12→21:37)
--- NOTE | 2017-03-15 18:36 | Internal Med Progress Note ---
Date of Encounter: 03/15/17 Time of Encounter: 13:00 - Assessment and plan (1) Stroke Current Visit: Yes Status: Suspected Assessment and plan: Continue with aspirin and statin. PT OT. He passed swallow evaluation. Appreciate neurology recommendations. We will continue stroke workup. Qualifiers: CVA mechanism: other Qualified Code(s): I63.8 - Other cerebral infarction (2) Insulin dependent diabetes mellitus Current Visit: Yes Status: Chronic Assessment and plan: Hemoglobin A1c is 11.2 indicating poor outpatient diabetes control. I will treat him with insulin sliding scale, P meal insulin and start low-dose Levemir. (3) CAD (coronary artery disease) Current Visit: Yes Status: Chronic Qualifiers: Coronary Disease-Associated Artery/Lesion type: [place] artery [place] vs. transplanted heart: [place] heart Associated angina: without angina Qualified Code(s): I25.10 - Atherosclerotic heart disease of [place] coronary artery without angina pectoris (4) DVT prophylaxis Current Visit: Yes Status: Acute (5) Acute kidney injury Current Visit: Yes Status: Acute Assessment and plan: Increase normal saline to 150 mL per hour. I am concerned of possible rhabdo due to the fact that he was found down. I will check creatinine kinase levels. Avoid nephrotoxins. Monitor GFR. - Subjective Interval history: Patient was brought to the hospital for acute altered mental status, found down by his landlord. Workup found evidence of new acute CVA. Currently his mental status has improved but he is unclear about his presentation. He denies focal weakness but he will point generalized weakness. Denies fevers chills chest pain and nausea. - Constitutional Vitals: Temp Pulse Resp BP Pulse Ox 98.1 F 85 16 109/64 95 03/15/17 15:22 03/15/17 15:22 03/15/17 15:22 03/15/17 15:22 03/15/17 15:22 General appearance: Present: A&O X 3, no acute distress, answers questions appropriately (a little slow and confused at times, but able to provide some history) - Respiratory Respiratory exam: Present: CTAB. Absent: accessory muscle use, rales, rhonchi, wheezes - Cardiovascular Cardiovascular exam: Present: RRR, +S1, +S2. Absent: diastolic murmur, gallop, rubs, systolic murmur - GI/Abdominal GI/Abdominal exam: Present: normal bowel sounds, soft, no peritoneal signs. Absent: distended, tenderness - Extremities Exam Extremities exam: Present: warm, radial pulses palpable and symmetrical. Absent : calf tenderness, cyanotic, pedal edema - Neurological Exam Neurological exam: Present: CN II-XII intact, oriented X3, no focal deficits. Absent: pronater drift, facial droop, speech deficit - Skin Skin exam: Present: dry, intact Internal Medicine: Result - Labs CBC & Chem 7: 03/15/17 04:17 03/15/17 04:17 Labs: Short CBC 03/15/17 Range/Units 04:17 WBC 11.4 H (4.3-11.1) K/mcL Hgb 15.3 (12.9-16.9) g/dL Hct 46.3 (37.5-50.1) % Plt Count 289 (140-400) K/mcL Neutrophils # 7.2 (1.6-8.9) K/mcL BMP 03/15/17 04:17 Sodium 135 L Potassium 4.4 Chloride 105 Carbon Dioxide 21 BUN 29 H Creatinine 1.92 H Glucose 248 H Calcium 10.4 Liver Function 03/15/17 Range/Units 04:17 Total Bilirubin 0.6 (0.2-1.2) mg/dL AST 17 (5-34) Units/L ALT 9 (0-55) Units/L Alkaline Phosphatase 115 (38-126) Units/L Albumin 3.3 L (3.5-5.0) g/dL - ABG Interpretation ABG results: PT/INR, D-dimer PT 11.8 Seconds (9.4-12.1) 03/15/17 04:17 - Impressions Impressions Head MRA 03/15/17 12:43 IMPRESSION: Left distal vertebral artery is not well seen suggesting occlusive change or severe flow limiting narrowing. Mild multifocal basilar artery narrowing Severe narrowing of the proximal left posterior cerebral artery with multifocal additional narrowing more peripherally in the left ACOUSTIC ENGINEER. Mild multifocal narrowing of the right ACOUSTIC ENGINEER Mild focal narrowing in the left MCA near the trifurcation. D/ / Adrian Champion / Adrian Champion Interpreting Provider: Adrian Champion Neck MRA 03/15/17 12:44 IMPRESSION: Limited noncontrast MRA neck evaluation. No evidence of flow-limiting stenosis or occlusion. D/ / Nigel Bloom MD / Nigel Bloom MD Interpreting Provider: Nigel Bloom MD Consult Discharge Plan - Plan [facility]errals: [facility] [Primary Care Provider] -
[2017-03-15] MEDS: Insulin DETEMIR 100 UNIT/ML X5UNITS SQ SCH (21:38)
[2017-03-16 05:43] LABS: Basophils # 0.1 K/mcL (0.0-0.2); Basophils % 0.7 %; Eosinophils # 0.2 K/mcL (0.0-0.6); Eosinophils % 2.3 %; Hematocrit 41.1 % (37.5-50.1); Immature Granulocytes % 0.4 % (0-4); Lymphocytes # 1.9 K/mcL (0.6-4.6); Lymphocytes % 24.9 %; Mean Corpuscular HGB Conc 32.4 g/dL (31.6-35.5); Mean Corpuscular Hemoglobin 27.3 pg (28.0-33.3); Mean Corpuscular Volume 84.4 fL (83.0-100.0); Mean Platelet Volume 10.6 fL (9.4-12.4); Monocytes # 0.7 K/mcL (0.0-1.3); Monocytes % 8.6 %; Neutrophils # 4.8 K/mcL (1.6-8.9); Platelet Count 185 K/mcL (140-400); Red Blood Count 4.87 M/mcL (4.19-5.50); Red Cell Distribution Width 12.9 % (11.5-14.5); Segmented Neutrophils % 63.1 %
[2017-03-16 05:50] LABS: Hemoglobin 13.3 g/dL (12.9-16.9)
[2017-03-16] MEDS: 0.9 % Sodium Chloride 1,000 ML IVC SCH ×2 (06:14→18:47)
[2017-03-16] MEDS: *HR* Heparin 5,000 UNIT/ML VIAL SQ SCH ×2 (06:15→18:49)
[2017-03-16 07:04] LABS: Calcium 9.5 mg/dL (8.6-10.8); Potassium 4.3 mEq/L (3.5-4.5)
--- NOTE | 2017-03-16 10:33 | Carotid Imaging Report ---
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 Recommendations: After imaging the patient returned to their room. Findings Carotid Duplex: Right: The right proximal common carotid artery has a PSV of 93 cm/s and a EDV of 15 cm/s. The right mid common carotid artery has a PSV of 82 cm/s and a EDV of 11 cm/s. The right distal common carotid artery has a PSV of 71 cm/s and a EDV of 16 cm/s. The right bifurcation has a PSV of 73 cm/s and a EDV of 13 cm/s. The right proximal internal carotid artery has a PSV of 53 cm/s and a EDV of 18 cm/s. The right mid internal carotid artery has a PSV of 73 cm/s and a EDV of 25 cm/s. The right distal internal carotid artery has a PSV of 56 cm/s and a EDV of 23 cm/s. The right eca has a PSV of 77 cm/s and a EDV of 7 cm/s. The right vertebral artery has a PSV of 22 cm/s and a EDV of 11 cm/s. Left: The left proximal common carotid artery has a PSV of 143 cm/s and a EDV of 30 cm/s. The left mid common carotid artery has a PSV of 79 cm/s and a EDV of 13 cm/s. The left distal common carotid artery has a PSV of 81 cm/s and a EDV of 19 cm/s. The left bifurcation has a PSV of 64 cm/s and a EDV of 12 cm/s. The left proximal internal carotid artery has a PSV of 48 cm/s and a EDV of 21 cm/s. The left mid internal carotid artery has a PSV of 43 cm/s and a EDV of 15 cm/s. The left distal internal carotid artery has a PSV of 74 cm/s and a EDV of 29 cm/s. The left eca has a PSV of 71 cm/s and a EDV of 9 cm/s. The left vertebral artery has a PSV of 36 cm/s and a EDV of 15 cm/s. Carotid Results Right PSV EDV Assessment Proximal CCA 93 15 Normal Mid CCA 82 11 Normal Distal CCA 71 16 Normal Bifurcation 73 13 Normal Proximal ICA 53 18 Non Stenotic Plaque Mid ICA 73 25 Non Stenotic Plaque Distal ICA 56 23 Normal ECA 77 7 Normal Vertebral Artery 22 11 Normal Left PSV EDV Assessment Proximal CCA 143 30 Normal Mid CCA 79 13 Normal Distal CCA 81 19 Normal Bifurcation 64 12 Normal Proximal ICA 48 21 Normal Mid ICA 43 15 Normal Distal ICA 74 29 Normal ECA 71 9 Normal Vertebral Artery 36 15 Normal Ratio's Right ICA/CCA Ratio: 0.90 ICA/CCA Values: 73/82 Left ICA/CCA Ratio: 0.90 ICA/CCA Values: 74/79 Updated by Kodi Gabriel MD, FACS on 03/16/2017 10:28:11 AM Kodi Gabriel MD electronically signed on 03/16/2017 10:28:33 AM with status of Final
[2017-03-16] MEDS: Aspirin 81 MG TAB.CHEW PO SCH (11:18)
[2017-03-16] MEDS: Gabapentin 300 MG CAPSULE PO SCH ×3 (11:18→20:08)
[2017-03-16] MEDS: Finasteride 5 MG TABLET PO SCH (11:18)
[2017-03-16] MEDS: Cholecalciferol (D-3) 1,000 UNIT TABLET PO SCH (11:18)
[2017-03-16] MEDS: SYSTANE OP SCH ×4 (11:19→20:09)
[2017-03-16] MEDS: Insulin LISPRO 300 UNITS/3 ML VIAL SQ SCH ×6 (11:23→18:47)
[2017-03-16] MEDS: Insulin DETEMIR 100 UNIT/ML X5UNITS SQ SCH ×2 (11:25→20:08)
--- NOTE | 2017-03-16 17:35 | Internal Med Progress Note ---
Date of Encounter: 03/16/17 Time of Encounter: 10:00 - Assessment and plan (1) Acute occipital temporal infarction Current Visit: Yes Status: Acute Assessment and plan: Patient has history of CVA. Recurrent infarct. TTE shows unremarkable. However MRA shows a marked multiple vascular narrowing. - Continue aspirin, Plavix, atorvastatin for aggressive treatment. - Avoid hypotension. - Neurology consult appreciated (2) Altered mental status Current Visit: Yes Status: Acute Assessment and plan: Patient has intermittent confusion with memory loss. Etiology is undetermined, probably due to brain ischemia/stroke. Seems confusion has slightly improved today. We will continue to aggressively treat vascular disease and closely monitor patient. Qualifiers: Altered mental status type: disorientation Qualified Code(s): R41.0 - Disorientation, unspecified (3) Acute kidney injury Current Visit: Yes Status: Acute Assessment and plan: Renal function has improved. CK level is within normal limits. Continue IV fluid at 75 mL per hour. (4) Insulin dependent diabetes mellitus Current Visit: Yes Status: Chronic Assessment and plan: Hemoglobin A1c is 11.2 indicating poor outpatient diabetes control. I will treat him with insulin sliding scale, P meal insulin and start low-dose Levemir. (5) CAD (coronary artery disease) Current Visit: Yes Status: Chronic Assessment and plan: Stable, continue home medications Qualifiers: Coronary Disease-Associated Artery/Lesion type: [place] artery [place] vs. transplanted heart: [place] heart Associated angina: without angina Qualified Code(s): I25.10 - Atherosclerotic heart disease of [place] coronary artery without angina pectoris (6) DVT prophylaxis Current Visit: Yes Status: Acute Assessment and plan: Heparin subcutaneously - Time Spent With Patient 25 - 35 minutes - Subjective Interval history: Patient is a 56-year-old male with history of CAD, diabetes, hypertension, history of CVA present to ER for acute altered mental status. MRI shows new infarct. Patient was seen and examined. He is awake alert, denies focal weakness, numbness. Patient has intermittent confusion and he knows "sometimes he lost memory". Vitals are stable. MRA head and neck shows left distal vertebral artery occlusion/narrowing and mild multifocal basal artery narrowing. Severe narrowing of the proximal left posterior cerebral artery with multifocal additional narrowing more peripherally in the left CENTRIFUGAL SCREEN TENDER. Mild multifocal narrowing of the right CENTRIFUGAL SCREEN TENDER. Mild focal narrowing in the left MCA near the trifurcation. - Constitutional Vitals: Temp Pulse Resp BP Pulse Ox 97.8 F 84 18 157/106 94 03/16/17 16:37 03/16/17 16:37 03/16/17 16:37 03/16/17 16:37 03/16/17 16:37 General appearance: Present: A&O X 3, no acute distress, answers questions appropriately (a little slow and confused at times, but able to provide some history) - Head Head exam: Present: atraumatic, normocephalic - Eye Eye exam: Present: PERRL, conjuntiva pink, sclera anicteric Pupils: Present: PERRL - Neck Neck exam general surgery: Present: supple, trachea midline. Absent: lymphadenopathy - Respiratory Respiratory exam: Present: CTAB. Absent: accessory muscle use, rales, rhonchi, wheezes - Cardiovascular Cardiovascular exam: Present: RRR, +S1, +S2. Absent: diastolic murmur, gallop, rubs, systolic murmur - GI/Abdominal GI/Abdominal exam: Present: normal bowel sounds, soft, no peritoneal signs. Absent: distended, tenderness - Extremities Exam Extremities exam: Present: warm, radial pulses palpable and symmetrical. Absent : calf tenderness, cyanotic, pedal edema - Neurological Exam Neurological exam: Present: CN II-XII intact, oriented X3, no focal deficits. Absent: pronater drift, facial droop, speech deficit - Skin Skin exam: Present: dry, intact Internal Medicine: Result - Labs CBC & Chem 7: 03/16/17 05:06 03/16/17 05:06 Labs: Short CBC 03/16/17 Range/Units 05:06 WBC 7.6 (4.3-11.1) K/mcL Hgb 13.3 D (12.9-16.9) g/dL Hct 41.1 (37.5-50.1) % Plt Count 185 (140-400) K/mcL Neutrophils # 4.8 (1.6-8.9) K/mcL BMP 03/16/17 05:06 Sodium 134 L Potassium 4.3 Chloride 106 Carbon Dioxide 20 BUN 29 H Creatinine 1.68 H Glucose 212 H Calcium 9.5 - ABG Interpretation ABG results: PT/INR, D-dimer PT 11.8 Seconds (9.4-12.1) 03/15/17 04:17 Consult Discharge Plan - Plan Referrals: BRUCE,PCP [Primary Care Provider] - 03/23/17 1:30 pm
--- NOTE | 2017-03-16 17:58 | Neurology Progress Note ---
Date of Encounter: 03/16/17 Time of Encounter: 17:56 Assessment and Plan (1) Stroke Current Visit: Yes Status: Suspected Qualifiers: CVA mechanism: other Qualified Code(s): I63.8 - Other cerebral infarction (2) Acute occipital temporal infarction Current Visit: Yes Status: Acute ischemic infarct secondary to intrarcranial atherosclerosis involving the left vertebral/BOOT REPAIRER territory with possible occlusion of left vertebral artery. Treatment would be antiplatelet therapy in the form of Aspirin and plavix, with aggressive risk factor reduction. Continue statin therapy. Mental status has been improving. Still has some residual disorientation likely related to encephalopathy secondary to renal insufficiency and is expecting continous improvement. Will sign off at this time please call if any questions Subjective Principal diagnosis: CVA Interval history: patient seen and examined. he is feeling better, and eating better. Still sees floaters to the right visual field. No focal deficits reported. MRA of brain and neck completed and result reviewed. Nursing staff reports some confusion, with difficulty remembering where he lives and people he has been known for few years. He is able to spell and calculate easily. is oriented to time, and person. Objective - Constitutional Vitals: Temp Pulse Resp BP Pulse Ox 97.8 F 84 18 157/106 94 03/16/17 16:37 03/16/17 16:37 03/16/17 16:37 03/16/17 16:37 03/16/17 16:37 - Neurological Exam Sensorimotor examination: Present: intact Motor Examination: Present: grossly full strength in all extremities Motor examination - left side: 5/5: deltoids, biceps, triceps, wrist flexion, wrist extension, hip flexors, automotive service cashier, quadriceps, tibialis Anterior, toe extension (EHL), plantarflexion Sensation intact: Present: intact Mental Status Examination: Present: awake, alert, oriented to person, oriented to place, oriented to time, follows commands appropriately, answers questions appropriately, no agnosia, no aphasia, no aproxia Cranial nerve examination: Present: PERRL, EOMI, visual [place] intact, corneal reflexes brisk symmetrically, sensory to face intact, mastication intact, no facial asymmetry is present, no dysarthria, hearing is intact symmetrically, soft palate elevates bilaterally upon phonation, gag reflex intact, flexes SCM and trapezius muscles symmetrically with full power, tongue protrudes midline, no atrophy or facial fasiculations present Cerebellar examination: Present: no dysmetria, performs finger to nose and heel to doss symmetrically without ataxia, no gait ataxia, no truncal ataxia, no difficulty with rapid alternating movements Results - Laboratory Findings CBC and BMP: 03/16/17 05:06 03/16/17 05:06 Abnormal lab findings: Abnormal lab results MCH 27.3 pg (28.0-33.3) L 03/16/17 05:06 Sodium 134 mEq/L (136-145) L 03/16/17 05:06 BUN 29 mg/dL (8-26) H 03/16/17 05:06 Creatinine 1.68 mg/dL (0.72-1.25) H 03/16/17 05:06 Est GFR ( Amer) 51 (> 60) L 03/16/17 05:06 Est GFR (Non-Af Amer) 42 (> 60) L 03/16/17 05:06 Glucose 212 mg/dL (70-99) H 03/16/17 05:06 POC Glucose 208 (58-89) H 03/16/17 16:38 Hemoglobin A1c 11.2 % (-5.6) H 03/14/17 14:53 Albumin 3.3 g/dL (3.5-5.0) L 03/15/17 04:17 Globulin 4.6 g/dL (2.4-3.5) H 03/15/17 04:17 Albumin/Globulin Ratio 0.7 (1.1-2.2) L 03/15/17 04:17 Triglycerides 270 mg/dL (< 150) H 03/15/17 04:17 VLDL Cholesterol, Calc 54 mg/dL (< 31) H 03/15/17 04:17 HDL Cholesterol 35 mg/dL (40-59) L 03/15/17 04:17 Cholesterol/HDL Ratio 5.3 (0-4.9) H 03/15/17 04:17 Ur Specific [place] > 1.030 (1.010-1.025) H 03/14/17 15:28 Urine Protein 100 mg/dL (Neg-Trace) H 03/14/17 15:28 Urine Glucose (UA) >=1000 mg/dL (Normal) H 03/14/17 15:28 Urine Ketones 15 mg/dL (Negative) H 03/14/17 15:28 Urine Bilirubin Small (Negative) H 03/14/17 15:28 Urine Microscopic RBC 5-15 per hpf (0-3) H 03/14/17 15:28 Ur Squamous Epith Cells Many per lpf (None-Few) H 03/14/17 15:28 - Diagnostic Findings Additional findings: MR/MR angio head wo con IMPRESSION: Left distal vertebral artery is not well seen suggesting occlusive change or severe flow limiting narrowing. Mild multifocal basilar artery narrowing Severe narrowing of the proximal left posterior cerebral artery with multifocal additional narrowing more peripherally in the left BOOT REPAIRER. Mild multifocal narrowing of the right BOOT REPAIRER Mild focal narrowing in the left MCA near the trifurcation. MR/MR angio neck wo con IMPRESSION: Limited noncontrast MRA neck evaluation. No evidence of flow-limiting stenosis or occlusion. Impressions: LVEF 55%. Normal LV chamber size, wall thickness and function. Atypical septal motion consistent with post-operative status. Mild left ventricular diastolic dysfunction. Normal right ventricular structure and function. No evidence of PFO with agitated saline contrast. Unable to estimate RVSP due to lack of TR jet. No significant valvular dysfunction. Left Ventricular Wall Motion: Rest Echo Findings All wall segments showed normal motion. Consult Discharge Plan - Plan [facility]: [facility] - 03/23/17 1:30 pm
[2017-03-17 01:29] VITALS: BP 140/81
[2017-03-17] MEDS: *HR* Heparin 5,000 UNIT/ML VIAL SQ SCH (06:06)
[2017-03-17 06:08] LABS: Basophils # 0.1 K/mcL (0.0-0.2); Basophils % 0.8 %; Eosinophils # 0.2 K/mcL (0.0-0.6); Eosinophils % 2.9 %; Hematocrit 45.7 % (37.5-50.1); Hemoglobin 14.7 g/dL (12.9-16.9); Immature Granulocytes % 0.6 % (0-4); Lymphocytes # 1.8 K/mcL (0.6-4.6); Mean Corpuscular HGB Conc 32.2 g/dL (31.6-35.5); Mean Corpuscular Hemoglobin 27.4 pg (28.0-33.3); Mean Corpuscular Volume 85.1 fL (83.0-100.0); Mean Platelet Volume 10.6 fL (9.4-12.4); Monocytes # 0.5 K/mcL (0.0-1.3); Monocytes % 6.9 %; Neutrophils # 4.6 K/mcL (1.6-8.9); Platelet Count 219 K/mcL (140-400); Red Blood Count 5.37 M/mcL (4.19-5.50); Red Cell Distribution Width 12.7 % (11.5-14.5); Segmented Neutrophils % 63.8 %
[2017-03-17 06:25] LABS: Calcium 10.2 mg/dL (8.6-10.8); Potassium 4.4 mEq/L (3.5-4.5)
[2017-03-17] MEDS: 0.9 % Sodium Chloride 1,000 ML IVC SCH (08:00)
[2017-03-17] MEDS: Cholecalciferol (D-3) 1,000 UNIT TABLET PO SCH (09:58)
[2017-03-17] MEDS: Aspirin 81 MG TAB.CHEW PO SCH (09:58)
[2017-03-17] MEDS: Gabapentin 300 MG CAPSULE PO SCH ×2 (09:58→14:37)
[2017-03-17] MEDS: Finasteride 5 MG TABLET PO SCH (09:58)
[2017-03-17] MEDS: Insulin DETEMIR 100 UNIT/ML X5UNITS SQ SCH (09:58)
[2017-03-17] MEDS: Insulin LISPRO 300 UNITS/3 ML VIAL SQ SCH ×6 (09:59→17:15)
[2017-03-17] MEDS: SYSTANE OP SCH (10:06)
--- NOTE | 2017-03-17 16:03 | Discharge Summary ---
Date of Encounter: 03/17/17 Time of Encounter: 10:00 - Discharge Diagnosis (1) Acute occipital temporal infarction Priority: Primary Status: Acute (2) Altered mental status Priority: Primary Status: Acute Qualifiers: Altered mental status type: disorientation Qualified Code(s): R41.0 - Disorientation, unspecified (3) Acute kidney injury Priority: Primary Status: Acute (4) Insulin dependent diabetes mellitus Priority: Secondary Status: Chronic (5) CAD (coronary artery disease) Priority: Secondary Status: Chronic Qualifiers: Coronary Disease-Associated Artery/Lesion type: [place] artery [place] vs. transplanted heart: [place] heart Associated angina: without angina Qualified Code(s): I25.10 - Atherosclerotic heart disease of [place] coronary artery without angina pectoris (6) DVT prophylaxis Priority: Secondary Status: Acute - Discharge Medications Home Medications: Acetaminophen [Tylenol] 1,000 mg PO BID PRN 03/14/17 [History] Aspirin Enteric Coated [Aspirin EC] 81 mg PO DAILY 03/14/17 [History] Atorvastatin Calcium [Lipitor] 80 mg PO HS 03/14/17 [History] Benzonatate [Tessalon] 100 mg PO Q8H PRN 03/14/17 [History] Cholecalciferol (D-3) [Vitamin D] 2,000 unit PO DAILY 03/14/17 [History] Clopidogrel [Plavix] 75 mg PO DAILY 03/14/17 [History] Docusate [Colace] 200 mg PO DAILY PRN 03/14/17 [History] Finasteride [Proscar] 5 mg PO DAILY 03/14/17 [History] Gabapentin [Neurontin] 300 mg PO TID 03/14/17 [History] Insulin NPH Human Isophane [Novolin N] 30 unit SQ QAM 03/14/17 [History] Insulin NPH Human Isophane [Novolin N] 35 unit SQ QPM 03/14/17 [History] Lisinopril [Zestril] 20 mg PO DAILY 03/14/17 [History] Metoprolol [Lopressor] 125 mg PO BID 03/14/17 [History] Nitroglycerin [Nitrostat] 0.4 mg SL Q5M PRN 03/14/17 [History] Propylene Glycol/Peg 400 [Systane 0.3-0.4% Eye Drops] 1 drop BOTH EYES QID 03/14 [History] glipiZIDE [Glipizide] 20 mg PO BID 03/14/17 [History] Allergies/Adverse Reactions: 3 Allergy/AdvReac Type Severity Reaction Status Date / Time Iodinated Contrast- Oral and Allergy Rash Verified 03/14/17 15:53 IV Dye Procedures/tests Complete & Pending: Procedures Performed prior 72 hours Category Date Time Status MR angio head wo con [MR] Routine MRI 03/15/17 12:43 Completed MR angio neck wo con [MR] Routine MRI 03/15/17 12:44 Completed ECG 12 lead ECG [ECG] AM 0600 Y 03/15/17 06:00 Ordered ECG 12 lead ECG [ECG] Routine Y 03/14/17 18:49 Completed EV carotid duplex imaging BI Routine Y 03/15/17 20:28 Completed EV echocardiogram Routine Y 03/15/17 20:28 Completed Date of admission: 03/14/17 16:57 Primary care physician: PCP BRUCE Consults: 03/14/17 20:28 Consult to Occupational Therapy [CONS] Routine Comment: Evaluate, develop and implement POC Reason for Consult: possible stroke Consult to Physical Therapy [CONS] Routine Comment: Evaluate, develop and implement POC Reason for Consult: possible stroke Consult to Speech Therapy [CONS] Routine Comment: Evaluate, develop and implement POC Reason for Consult: possible stroke Call Completed: No 03/16/17 14:18 Consult to Grant Specialist [CONS] Routine Reason for SW Consult: Rehab placement d/t memory loss/cognitive deficit post stroke. Discharging clinician: Nori Diaz Anticipated date of discharge: 03/17/17 - Patient Status Disposition: Transfer Inpatient Rehab Fac Condition: Good Functional capacity at discharge: independent ambulation Overall status at discharge: patient is progressing back to baseline - Discharge Instructions Follow Up With: [facility] - 03/23/17 1:30 pm - Diet and Activity Activity: increase activity as tolerated Diet: diabetic diet, low salt diet Interval History: HPI: Mr. Squires is a 56 year old male who presented to the ER today by EMS after his landlord found him confused, disoriented, and initially unresponsive. Workup in the ER was concerning for possible acute stroke. However, his last known well was unknown and presumably last night. Therefore, he was not a TPA candidate. He was admitted to hospitalist service thereafter. Upon my assessment of the patient, he is alert, oriented 3 now, and denies any complaints presently. He is still somewhat confused as to what happened over last 24 hours. However, he does realize he is in the hospital and that he might have had a stroke. He denies any new numbness, weakness, paralysis, dysarthria, dysphagia, and/or paresthesias. He states he had a stroke about a year ago and he does have some memory loss from his old stroke. [facility]. Unfortunately, we have no old records in our system. I reviewed his ER records and imaging studies. He is unable to provide much further history other than history obtained in the ER and by myself. He does state he has been recently treated for pneumonia and is still on antibiotics currently. He denies any chest pain, worsening cough, wheezing, or shortness of breath. He still has a cough but it is slowly subsiding. Hospital course: Mr. Squires is a 56 year old male admitted for stroke. MRI shows acute infarct. MRA shows multiple vascular stenosis, especially in REHABILITATION ENGINEER system. Neurology consult was called and saw patient, recommendation has been followed. After treatment, patient is stable. Patient still has some memory loss. For safety reasons he will discharge to rehabilitation center for further management. Pt has elevated creatinine, which improved after hydration. No baseline creatinine level available in system. Probably patient has CKD already since he has long history of diabetes. I saw and examined the patient today. Patient is awake alert, oriented 3. Walking around without gait difficulty. Vitals are stable. Still complaining sometimes intermittent memory loss. Patient is stable to transfer to rehabilitation center for further management. - Time Spent with Patient Total time spent providing and/or coordinating discharge services: 40 minutes Greater than 30 minutes - Constitutional Vitals: Temp Pulse Resp BP Pulse Ox 98.3 F 72 18 140/81 95 03/17/17 01:27 03/17/17 01:27 03/17/17 01:27 03/17/17 01:03/17/17 11:47 General appearance: Present: A&O X 3, no acute distress, answers questions appropriately (a little slow and confused at times, but able to provide some history) - Head Head exam: Present: atraumatic, normocephalic - Eye Eye exam: Present: PERRL, conjuntiva pink, sclera anicteric Pupils: Present: PERRL - Neck Neck exam general surgery: Present: supple, trachea midline. Absent: lymphadenopathy - Respiratory Respiratory exam: Present: CTAB. Absent: accessory muscle use, rales, rhonchi, wheezes - Cardiovascular Cardiovascular exam: Present: RRR, +S1, +S2. Absent: diastolic murmur, gallop, rubs, systolic murmur - GI/Abdominal GI/Abdominal exam: Present: normal bowel sounds, soft, no peritoneal signs. Absent: distended, tenderness - Extremities Exam Extremities exam: Present: warm, radial pulses palpable and symmetrical. Absent : calf tenderness, cyanotic, pedal edema - Neurological Exam Neurological exam: Present: CN II-XII intact, oriented X3, no focal deficits. Absent: pronater drift, facial droop, speech deficit - Skin Skin exam: Present: dry, intact
--- NOTE | 2017-03-17 16:17 | Physician Discharge Referral ---
ExtendedCare Referral Info Transfer To: Rehab Provider in Charge after Transfer: Other - Diagnosis (1) Acute occipital temporal infarction Status: Acute (2) Altered mental status Status: Acute (3) Acute kidney injury Status: Acute (4) Insulin dependent diabetes mellitus Status: Chronic (5) CAD (coronary artery disease) Status: Chronic (6) DVT prophylaxis Status: Acute - Transfer Medications Home Medications: Acetaminophen [Tylenol] 1,000 mg PO BID PRN 03/14/17 [History] Aspirin Enteric Coated [Aspirin EC] 81 mg PO DAILY 03/14/17 [History] Atorvastatin Calcium [Lipitor] 80 mg PO HS 03/14/17 [History] Benzonatate [Tessalon] 100 mg PO Q8H PRN 03/14/17 [History] Cholecalciferol (D-3) [Vitamin D] 2,000 unit PO DAILY 03/14/17 [History] Clopidogrel [Plavix] 75 mg PO DAILY 03/14/17 [History] Docusate [Colace] 200 mg PO DAILY PRN 03/14/17 [History] Finasteride [Proscar] 5 mg PO DAILY 03/14/17 [History] Gabapentin [Neurontin] 300 mg PO TID 03/14/17 [History] Insulin NPH Human Isophane [Novolin N] 30 unit SQ QAM 03/14/17 [History] Insulin NPH Human Isophane [Novolin N] 35 unit SQ QPM 03/14/17 [History] Lisinopril [Zestril] 20 mg PO DAILY 03/14/17 [History] Metoprolol [Lopressor] 125 mg PO BID 03/14/17 [History] Nitroglycerin [Nitrostat] 0.4 mg SL Q5M PRN 03/14/17 [History] Propylene Glycol/Peg 400 [Systane 0.3-0.4% Eye Drops] 1 drop BOTH EYES QID 03/14 [History] glipiZIDE [Glipizide] 20 mg PO BID 03/14/17 [History] Allergies/Adverse Reactions: 3 Allergy/AdvReac Type Severity Reaction Status Date / Time Iodinated Contrast- Oral and Allergy Rash Verified 03/14/17 15:53 IV Dye - Respiratory Orders Smoking Cessation: Smoking cessation has been advised. For more information, call the [employer] Tobacco Quit Line at 6-114-TNZB-NOW. - Advance Directives Code Status: Full Code - Rehabiliation Orders Rehab Orders: Evaluation for Physical Therapy, Evaluation for Occupational Therapy - Diet Orders No Concentrated Sweets (DM diet), Cardiac CERTIFICATION: I certify that the transfer of the above named patient to an Extended Care Facility is necessary for the continuing treatment of the diagnosis listed. The above information is true and accurate reflection of patient's current condition. Confidential - Redisclosure prohibited without a patient's written consent.
== END 2017-03-17 18:55 | DRG 64 ==
LOC: EMEROO 14:07 → 2NENU 16:57 → SUATTDRO 16:57 → 2NENU 18:17
PROVIDERS: ADMIT Nurse Practitioner Family; ATTEND Internal Medicine

== ENCOUNTER 2017-04-13 12:07 | Inpatient (IN) ==
[~2017-04-13 12:07] MED LIST: *HR* Etomidate 40 MG/20 ML VIAL IVP ONE; *HR* LORazepam 2 MG/ML VIAL IVP ONE; *HR* Rocuronium Bromide 100 MG/10 ML VIAL IVC ONE
[2017-04-13] MEDS ORDERED: 0.9 % Sodium Chloride 1,000 ML IVC ONE ×4 (12:26→14:12)
[2017-04-13] MEDS ORDERED: *HR* LORazepam 2 MG/ML VIAL IVP ONE (12:26)
[2017-04-13] MEDS ORDERED: *HR* Etomidate 20 MG/10 ML AMPUL IVP ONE (12:33)
[2017-04-13] MEDS ORDERED: *HR* Rocuronium Bromide 50 MG/5 ML VIAL IVP ONE (12:33)
[2017-04-13] MEDS: Propofol 500 MG/50 ML INFUS..BTL IVC SCH ×4 (12:39→21:27)
[2017-04-13 12:45] LABS: Albumin 3.7 g/dL (3.5-5.0); Albumin/Globulin Ratio 0.7 (1.1-2.2); Bilirubin,Total 0.5 mg/dL (0.2-1.2); Calcium 11.4 mg/dL (8.6-10.8); Globulin 5.4 g/dL (2.4-3.5); Magnesium 2.1 mg/dL (1.6-2.6); Phosphorous 4.9 mg/dL (2.3-4.7); Potassium 4.8 mEq/L (3.5-4.5); Total Protein 9.1 g/dL (6.0-8.3)
[2017-04-13] MEDS ORDERED: SODIUM CHLORIDE 0.9% IVPB ONE (12:45)
[2017-04-13] MEDS ORDERED: PHENYTOIN IVPB ONE (12:45)
[2017-04-13 13:07] LABS: Bilirubin,Urine Negative (Negative); Blood,Urine Large (Negative); Color,Urine Yellow (Yellow); Glucose,Urine (UA) >=1000 mg/dL (Normal); Ketones,Urine Negative (Negative); Leukocyte Esterase,Urine Negative (Negative); Nitrite,Urine Negative (Negative); Protein,Urine >=300 mg/dL (Neg-Trace); Specific Gravity,Urine 1.027 (1.010-1.025); Urobilinogen,Urine Normal (Normal)
[2017-04-13 13:09] LABS: Amphetamine Screen,Urine Negative ng/mL (Cutoff=1000); Barbiturate Screen,Urine Negative ng/mL (Cutoff=200); Benzodiazepines Screen,Urine Negative ng/mL (Cutoff=200); Cannabinoid Screen,Urine Negative ng/mL (Cutoff = 50); Cocaine Screen,Urine Negative ng/mL (Cutoff= 300); Hyaline Casts,Urine None Seen per lpf (None-Few); Opiate Screen,Urine Negative ng/mL (Cutoff=300); Phencyclidine Screen,Urine Negative ng/mL (Cutoff=25); RBC,Urine TNTC per hpf (0-3); Squamous Epithelial Cell,Urine Many per lpf (None-Few)
--- NOTE | 2017-04-13 13:11 | Emergency Department Note ---
Disposition Clinical Impression: Status epilepticus, Acute renal insufficiency, Lactic acidosis Altered mental status Qualifiers: Altered mental status type: unspecified Qualified Code(s): R41.82 - Altered mental status, unspecified Aspiration pneumonia Qualifiers: Aspiration pneumonia type: unspecified Laterality: unspecified laterality Lung location: unspecified part of lung Qualified Code(s): J69.0 - Pneumonitis due to inhalation of food and vomit Acute renal failure Qualifiers: Acute renal failure type: unspecified Qualified Code(s): N17.9 - Acute kidney failure, unspecified Disposition: Admitted As Inpatient Condition: Critical Time of Disposition: 13:00 General Adult HPI - General Chief complaint: ED Seizure Stated complaint: unresponsive Time Seen by Provider: 04/13/17 12:25 Source: EMS Nursing Notes Reviewed: Yes Vital Signs Reviewed: Yes - History of Present Illness HPI Narrative: 56-year-old male brought in by EMS secondary to altered mental status for status epilepticus Pain Scale: 0 - Related Data Home Medications Medication Instructions Recorded Confirmed Acetaminophen [Tylenol] 1,000 mg PO BID PRN 03/14/17 04/13/17 Aspirin Enteric Coated [Aspirin EC] 81 mg PO DAILY 03/14/17 04/13/17 Atorvastatin Calcium [Lipitor] 80 mg PO HS 03/14/17 04/13/17 Benzonatate [Tessalon] 100 mg PO Q8H PRN 03/14/17 03/14/17 Cholecalciferol (D-3) [Vitamin D] 2,000 unit PO DAILY 03/14/17 04/13/17 Clopidogrel [Plavix] 75 mg PO DAILY 03/14/17 04/13/17 Docusate [Colace] 200 mg PO DAILY PRN 03/14/17 04/13/17 Finasteride [Proscar] 5 mg PO DAILY 03/14/17 04/13/17 Gabapentin [Neurontin] 300 mg PO TID 03/14/17 04/13/17 Insulin NPH Human Isophane 30 unit SQ QAM 03/14/17 04/13/17 [Novolin N] Insulin NPH Human Isophane 35 unit SQ QPM 03/14/17 04/13/17 [Novolin N] Lisinopril [Zestril] 20 mg PO DAILY 03/14/17 04/13/17 Metoprolol [Lopressor] 125 mg PO BID 03/14/17 04/13/17 Nitroglycerin [Nitrostat] 0.4 mg SL Q5M PRN 03/14/17 04/13/17 Propylene Glycol/Peg 400 [Systane 1 drop BOTH EYES QID 03/14/17 04/13/17 0.3-0.4% Eye Drops] glipiZIDE [Glipizide] 20 mg PO BID 03/14/17 04/13/17 Insulin LISPRO [HumaLOG] 0 - 12 units SQ TID PRN 04/13/17 04/13/17 Allergies Allergy/AdvReac Type Severity Reaction Status Date / Time Iodinated Contrast- Oral and Allergy Rash Verified 03/14/17 15:53 IV Dye Past Medical History - Past Medical History Medical history: Reports: diabetes, hypertension Surgical history: Reports: coronary bypass (CABG) Psychiatric history: Reports: depression - Social History Smoking Status: Former smoker Smokeless Tobacco Status: No Alcohol use: Reports: none Drug use: Reports: none Physical Exam - General General appearance: lethargic Course Vital Signs Temperature 99 F 04/13/17 12:10 Pulse Rate 102 04/13/17 12:10 Respiratory Rate 32 04/13/17 12:10 Blood Pressure 163/109 04/13/17 12:10 O2 Sat by Pulse Oximetry 94 04/13/17 12:10 Temperature 99.6 F 04/15/17 19:32 Pulse Rate 92 04/15/17 19:32 Respiratory Rate 24 04/15/17 19:32 Blood Pressure 182/108 04/15/17 19:32 O2 Sat by Pulse Oximetry 94 04/15/17 19:32 Oxygen Delivery Oxygen Delivery Ventilator Procedures - Intubation Time out performed: Yes sedative: Etomidate paralytic: Rocuronium Laryngoscope: Geovany ET Tube Size: 7.5 ET Tube Uncuffed: Yes Tube Secured Depth (cm): 24 Tube Secured Location: lips Tube Placement Confirmation: visualized tube passing through cords, equal breath sounds bilaterally, no breath sounds over epigastrium, confirmation by capnometry Patient Tolerated Procedure: no complications Medical Decision Making - MDM Narrative Medical decision making narrative: Procedure note for intubation - Lab Data Result diagrams: 04/15/17 05:30 04/15/17 05:30 Lab Results 04/13/17 04/13/17 04/13/17 Range/Units 12:15 12:19 12:19 WBC (4.3-11.1) K/mcL RBC (4.19-5.50) M/mcL Hgb (12.9-16.9) g/dL Hct (37.5-50.1) % MCV (83.0-100.0) fL MCH (28.0-33.3) pg MCHC (31.6-35.5) g/dL RDW (11.5-14.5) % Plt Count (140-400) K/mcL MPV (9.4-12.4) fL Immature Gran % (0-4) % Seg Neutrophils % % Lymphocytes % % Monocytes % % Eosinophils % % Basophils % % Neutrophils # (1.6-8.9) K/mcL Lymphocytes # (0.6-4.6) K/mcL Monocytes # (0.0-1.3) K/mcL Eosinophils # (0.0-0.6) K/mcL Basophils # (0.0-0.2) K/mcL ABG pH (7.32-7.45) pH Units ABG pCO2 (35-45) mmHg ABG pO2 (85-104) mmHg ABG HCO3 (21-27) mEq/L ABG Total CO2 (20-26) mEq/L ABG O2 Saturation (95-98) % ABG Base Excess (-2 to 3) mEq/L Sodium 139 (136-145) mEq/L Potassium 4.8 H (3.5-4.5) mEq/L Chloride 101 (98-109) mEq/L Carbon Dioxide 9 L* (19-29) mEq/L BUN 44 H (8-26) mg/dL Creatinine 2.51 H (0.72-1.25) mg/dL Est GFR ( Amer) 32 L (> 60) Est GFR (Non-Af Amer) 27 L (> 60) BUN/Creatinine Ratio 18 (6-26) Glucose 303 H (70-99) mg/dL POC Glucose 272 H (58-89) Calculated Osmolality 311 H (280-300) Lactic Acid (0.5-2.2) mmol/L Calcium 11.4 H (8.6-10.8) mg/dL Phosphorus 4.9 H (2.3-4.7) mg/dL Magnesium 2.1 (1.6-2.6) mg/dL Total Bilirubin 0.5 (0.2-1.2) mg/dL AST 21 (5-34) Units/L ALT 12 (0-55) Units/L Alkaline Phosphatase 145 H (38-126) Units/L Serum Total Protein 9.1 H (6.0-8.3) g/dL Albumin 3.7 (3.5-5.0) g/dL Globulin 5.4 H (2.4-3.5) g/dL Albumin/Globulin Ratio 0.7 L (1.1-2.2) Ur Specimen Adequacy Urine Color (Yellow) Urine Clarity (Clear) Urine pH (5.0-8.0) pH Units Ur Specific [place] (1.010-1.025) Urine Protein (Neg-Trace) mg/dL Urine Glucose (UA) (Normal) mg/dL Urine Ketones (Negative) mg/dL Urine Blood (Negative) Urine Nitrite (Negative) Urine Bilirubin (Negative) Urine Urobilinogen (Normal) mg/dL Ur Leukocyte Esterase (Negative) Urine Microscopic RBC (0-3) per hpf Urine Microscopic WBC (0-3) per hpf Ur Squamous Epith Cells (None-Few) per lpf Ur Renal Epithelial Cell (None-Few) per hpf Amorphous Sediment (Few) Urine Bacteria (None-Few) per hpf Hyaline Casts (None-Few) per lpf Granular Casts (None Seen) per lpf Urine Opiates Screen (Vgrewk=045) ng/mL Acetaminophen 1.0 L (10-30) mcg/mL Ur Barbiturates Screen (Gwcxvx=803) ng/mL Ur Phencyclidine Scrn (Cutoff=25) ng/mL Ur Amphetamines Screen (Xnumek=7860) ng/mL U Benzodiazepines Scrn (Vdjexo=290) ng/mL Urine Cocaine Screen (Cutoff= 300) ng/mL U Marijuana (THC) Screen (Cutoff = 50) ng/mL Specimen Rejected MCV Delta Person Notif of Crit 04/13/17 04/13/17 04/13/17 Range/Units 12:55 12:55 13:08 WBC 21.0 H (4.3-11.1) K/mcL RBC 5.48 (4.19-5.50) M/mcL Hgb 15.6 (12.9-16.9) g/dL Hct 48.6 (37.5-50.1) % MCV 88.7 (83.0-100.0) fL MCH 28.5 (28.0-33.3) pg MCHC 32.1 (31.6-35.5) g/dL RDW 12.9 (11.5-14.5) % Plt Count 325 (140-400) K/mcL MPV 10.8 (9.4-12.4) fL Immature Gran % 1.6 (0-4) % Seg Neutrophils % 69.2 % Lymphocytes % 22.4 % Monocytes % 5.7 % Eosinophils % 0.6 % Basophils % 0.5 % Neutrophils # 14.5 H (1.6-8.9) K/mcL Lymphocytes # 4.7 H (0.6-4.6) K/mcL Monocytes # 1.2 (0.0-1.3) K/mcL Eosinophils # 0.1 (0.0-0.6) K/mcL Basophils # 0.1 (0.0-0.2) K/mcL ABG pH (7.32-7.45) pH Units ABG pCO2 (35-45) mmHg ABG pO2 (85-104) mmHg ABG HCO3 (21-27) mEq/L ABG Total CO2 (20-26) mEq/L ABG O2 Saturation (95-98) % ABG Base Excess (-2 to 3) mEq/L Sodium (136-145) mEq/L Potassium (3.5-4.5) mEq/L Chloride (98-109) mEq/L Carbon Dioxide (19-29) mEq/L BUN (8-26) mg/dL Creatinine (0.72-1.25) mg/dL Est GFR ( Amer) (> 60) Est GFR (Non-Af Amer) (> 60) BUN/Creatinine Ratio (6-26) Glucose (70-99) mg/dL POC Glucose (58-89) Calculated Osmolality (280-300) Lactic Acid (0.5-2.2) mmol/L Calcium (8.6-10.8) mg/dL Phosphorus (2.3-4.7) mg/dL Magnesium (1.6-2.6) mg/dL Total Bilirubin (0.2-1.2) mg/dL AST (5-34) Units/L ALT (0-55) Units/L Alkaline Phosphatase (38-126) Units/L Serum Total Protein (6.0-8.3) g/dL Albumin (3.5-5.0) g/dL Globulin (2.4-3.5) g/dL Albumin/Globulin Ratio (1.1-2.2) Ur Specimen Adequacy See below A Urine Color Yellow (Yellow) Urine Clarity Slightly Hazy (Clear) Urine pH 5.0 (5.0-8.0) pH Units Ur Specific [place] 1.027 H (1.010-1.025) Urine Protein >=300 H (Neg-Trace) mg/dL Urine Glucose (UA) >=1000 H (Normal) mg/dL Urine Ketones Negative (Negative) mg/dL Urine Blood Large H (Negative) Urine Nitrite Negative (Negative) Urine Bilirubin Negative (Negative) Urine Urobilinogen Normal (Normal) mg/dL Ur Leukocyte Esterase Negative (Negative) Urine Microscopic RBC TNTC H (0-3) per hpf Urine Microscopic WBC 5-15 H (0-3) per hpf Ur Squamous Epith Cells Many H (None-Few) per lpf Ur Renal Epithelial Cell Few (None-Few) per hpf Amorphous Sediment Present (Few) Urine Bacteria Many H (None-Few) per hpf Hyaline Casts None Seen (None-Few) per lpf Granular Casts Few H (None Seen) per lpf Urine Opiates Screen Negative (Echgqx=740) ng/mL Acetaminophen (10-30) mcg/mL Ur Barbiturates Screen Negative (Kfrfxy=997) ng/mL Ur Phencyclidine Scrn Negative (Cutoff=25) ng/mL Ur Amphetamines Screen Negative (Xesxsl=6469) ng/mL U Benzodiazepines Scrn Negative (Pkcvgd=325) ng/mL Urine Cocaine Screen Negative (Cutoff= 300) ng/mL U Marijuana (THC) Screen Negative (Cutoff = 50) ng/mL Specimen Rejected Person Notif of Crit 04/13/17 04/13/17 Range/Units 13:13 13:46 WBC (4.3-11.1) K/mcL RBC (4.19-5.50) M/mcL Hgb (12.9-16.9) g/dL Hct (37.5-50.1) % MCV (83.0-100.0) fL MCH (28.0-33.3) pg MCHC (31.6-35.5) g/dL RDW (11.5-14.5) % Plt Count (140-400) K/mcL MPV (9.4-12.4) fL Immature Gran % (0-4) % Seg Neutrophils % % Lymphocytes % % Monocytes % % Eosinophils % % Basophils % % Neutrophils # (1.6-8.9) K/mcL Lymphocytes # (0.6-4.6) K/mcL Monocytes # (0.0-1.3) K/mcL Eosinophils # (0.0-0.6) K/mcL Basophils # (0.0-0.2) K/mcL ABG pH 7.11 L* (7.32-7.45) pH Units ABG pCO2 53 H (35-45) mmHg ABG pO2 145 H (85-104) mmHg ABG HCO3 17 L (21-27) mEq/L ABG Total CO2 18 L (20-26) mEq/L ABG O2 Saturation 98 (95-98) % ABG Base Excess -13 L (-2 to 3) mEq/L Sodium (136-145) mEq/L Potassium (3.5-4.5) mEq/L Chloride (98-109) mEq/L Carbon Dioxide (19-29) mEq/L BUN (8-26) mg/dL Creatinine (0.72-1.25) mg/dL Est GFR ( Amer) (> 60) Est GFR (Non-Af Amer) (> 60) BUN/Creatinine Ratio (6-26) Glucose (70-99) mg/dL POC Glucose (58-89) Calculated Osmolality (280-300) Lactic Acid 9.1 H* (0.5-2.2) mmol/L Calcium (8.6-10.8) mg/dL Phosphorus (2.3-4.7) mg/dL Magnesium (1.6-2.6) mg/dL Total Bilirubin (0.2-1.2) mg/dL AST (5-34) Units/L ALT (0-55) Units/L Alkaline Phosphatase (38-126) Units/L Serum Total Protein (6.0-8.3) g/dL Albumin (3.5-5.0) g/dL Globulin (2.4-3.5) g/dL Albumin/Globulin Ratio (1.1-2.2) Ur Specimen Adequacy Urine Color (Yellow) Urine Clarity (Clear) Urine pH (5.0-8.0) pH Units Ur Specific [place] (1.010-1.025) Urine Protein (Neg-Trace) mg/dL Urine Glucose (UA) (Normal) mg/dL Urine Ketones (Negative) mg/dL Urine Blood (Negative) Urine Nitrite (Negative) Urine Bilirubin (Negative) Urine Urobilinogen (Normal) mg/dL Ur Leukocyte Esterase (Negative) Urine Microscopic RBC (0-3) per hpf Urine Microscopic WBC (0-3) per hpf Ur Squamous Epith Cells (None-Few) per lpf Ur Renal Epithelial Cell (None-Few) per hpf Amorphous Sediment (Few) Urine Bacteria (None-Few) per hpf Hyaline Casts (None-Few) per lpf Granular Casts (None Seen) per lpf Urine Opiates Screen (Uixcvm=316) ng/mL Acetaminophen (10-30) mcg/mL Ur Barbiturates Screen (Uuowaq=610) ng/mL Ur Phencyclidine Scrn (Cutoff=25) ng/mL Ur Amphetamines Screen (Anrboe=5022) ng/mL U Benzodiazepines Scrn (Paqoqv=979) ng/mL Urine Cocaine Screen (Cutoff= 300) ng/mL U Marijuana (THC) Screen (Cutoff = 50) ng/mL Specimen Rejected Person Notif of Waldemar [place] Attestation Statement - Attestation Attestation: I examined this patient and my medical decision-making was reviewed with the Resident Physician, Dr. Hannah. I agree with the documented findings, disposition and treatment plan as described except to the extent set forth below. PLEASE MERGE WITH OTHER DOCUMENTATION; THIS IS A PROCEDURE NOTE ONLY I personally supervised Dr. Hannah perform endotracheal intubation on pt, and agree with procedure note
[2017-04-13 13:12] LABS: Clarity,Urine Slightly Hazy (Clear)
[2017-04-13 13:17] LABS: Basophils # 0.1 K/mcL (0.0-0.2); Basophils % 0.5 %; Eosinophils # 0.1 K/mcL (0.0-0.6); Eosinophils % 0.6 %; Hematocrit 48.6 % (37.5-50.1); Hemoglobin 15.6 g/dL (12.9-16.9); Immature Granulocytes % 1.6 % (0-4); Lymphocytes # 4.7 K/mcL (0.6-4.6); Lymphocytes % 22.4 %; Mean Corpuscular HGB Conc 32.1 g/dL (31.6-35.5); Mean Corpuscular Hemoglobin 28.5 pg (28.0-33.3); Mean Corpuscular Volume 88.7 fL (83.0-100.0); Mean Platelet Volume 10.8 fL (9.4-12.4); Monocytes # 1.2 K/mcL (0.0-1.3); Monocytes % 5.7 %; Neutrophils # 14.5 K/mcL (1.6-8.9); Platelet Count 325 K/mcL (140-400); Red Blood Count 5.48 M/mcL (4.19-5.50); Red Cell Distribution Width 12.9 % (11.5-14.5); Segmented Neutrophils % 69.2 %
[2017-04-13 13:26] LABS: Renal Epithelial Cells,Urine Few per hpf (None-Few)
[2017-04-13 13:27] LABS: Amorphous Sediment,Urine Present (Few); Bacteria,Urine Many per hpf (None-Few)
[2017-04-13 13:28] LABS: Granular Casts,Urine Few per lpf (None Seen)
[2017-04-13] MEDS ORDERED: Piperacillin/Tazobactam 4.5 GM in D5% in Water (Mini-Bag+) 100 ML IVPB ONE (13:28)
[2017-04-13] MEDS ORDERED: Levofloxacin 750 MG/150 ML 750 MG/150 ML BAG IVPB ONE (13:28)
[2017-04-13] MEDS ORDERED: Vancomycin 1,750 MG in D5% in Water 500 ML IVPB ONE (13:28)
[2017-04-13] MEDS ORDERED: Sodium Bicarbonate 50 MEQ/50 ML VIAL IVP ONE (14:06)
[2017-04-13 14:13] LABS: ABG Base Excess -13 mEq/L (-2 to 3); ABG HCO3 17 mEq/L (21-27); ABG Oxygen Saturation 98 % (95-98); ABG PCO2 53 mmHg (35-45); ABG PH 7.11 pH Units (7.32-7.45); ABG PO2 145 mmHg (85-104); ABG TCO2 18 mEq/L (20-26)
--- NOTE | 2017-04-13 14:13 | Emergency Department Note ---
Disposition Clinical Impression: Status epilepticus, Acute renal insufficiency, Lactic acidosis Altered mental status Qualifiers: Altered mental status type: unspecified Qualified Code(s): R41.82 - Altered mental status, unspecified Aspiration pneumonia Qualifiers: Aspiration pneumonia type: unspecified Laterality: unspecified laterality Lung location: unspecified part of lung Qualified Code(s): J69.0 - Pneumonitis due to inhalation of food and vomit Acute renal failure Qualifiers: Acute renal failure type: unspecified Qualified Code(s): N17.9 - Acute kidney failure, unspecified Disposition: Admitted As Inpatient Condition: Critical Time of Disposition: 15:18 General Adult HPI - General Chief complaint: ED Seizure Stated complaint: unresponsive Time Seen by Provider: 04/13/17 12:25 Source: EMS Mode of arrival: EMS Limitations: altered mental status Nursing Notes Reviewed: Yes Vital Signs Reviewed: Yes - History of Present Illness HPI Narrative: Patient presents to the ED via EMS for new onset seizures. Patient reportedly had a stroke a few months ago and has been in a long-term since. Reportedly his baseline. His essentially normal. Today he had 2 witnessed generalized tonic-clonic seizures. One was witnessed by EMS. The other was witnessed at the nursing facility. Arriving to the emergency department with agonal respirations snoring respirations. Pain Scale: 0 - Related Data Home Medications Medication Instructions Recorded Confirmed Acetaminophen [Tylenol] 1,000 mg PO BID PRN 03/14/17 04/13/17 Aspirin Enteric Coated [Aspirin EC] 81 mg PO DAILY 03/14/17 04/13/17 Atorvastatin Calcium [Lipitor] 80 mg PO HS 03/14/17 04/13/17 Benzonatate [Tessalon] 100 mg PO Q8H PRN 03/14/17 03/14/17 Cholecalciferol (D-3) [Vitamin D] 2,000 unit PO DAILY 03/14/17 04/13/17 Clopidogrel [Plavix] 75 mg PO DAILY 03/14/17 04/13/17 Docusate [Colace] 200 mg PO DAILY PRN 03/14/17 04/13/17 Finasteride [Proscar] 5 mg PO DAILY 03/14/17 04/13/17 Gabapentin [Neurontin] 300 mg PO TID 03/14/17 04/13/17 Insulin NPH Human Isophane 30 unit SQ QAM 03/14/17 04/13/17 [Novolin N] Insulin NPH Human Isophane 35 unit SQ QPM 03/14/17 04/13/17 [Novolin N] Lisinopril [Zestril] 20 mg PO DAILY 03/14/17 04/13/17 Metoprolol [Lopressor] 125 mg PO BID 03/14/17 04/13/17 Nitroglycerin [Nitrostat] 0.4 mg SL Q5M PRN 03/14/17 04/13/17 Propylene Glycol/Peg 400 [Systane 1 drop BOTH EYES QID 03/14/17 04/13/17 0.3-0.4% Eye Drops] glipiZIDE [Glipizide] 20 mg PO BID 03/14/17 04/13/17 Insulin LISPRO [HumaLOG] 0 - 12 units SQ TID PRN 04/13/17 04/13/17 Allergies Allergy/AdvReac Type Severity Reaction Status Date / Time Iodinated Contrast- Oral and Allergy Rash Verified 03/14/17 15:53 IV Dye Limitations: ROS unobtainable due to patients medical condition Past Medical History - Past Medical History Attestation: Yes The following information was validated with the patient. Source: old records reviewed Medical history: Reports: diabetes, hypertension Surgical history: Reports: coronary bypass (CABG) Psychiatric history: Reports: depression - Social History Smoking Status: Former smoker Smokeless Tobacco Status: No Alcohol use: Reports: none Drug use: Reports: none Physical Exam - General Limitations: altered mental status General appearance: lethargic, obese - Head Head exam: atraumatic - Eye Eye exam: Present: PERRL (sluggish but reactive) - ENT ENT exam: mucous membranes moist - Neck Neck exam: Present: trachea midline - Chest Chest inspection: Present: symmetric chest wall rise - Respiratory Respiratory exam: Present: other (Patient with agonal and snoring respirations, coarse rhonchi bilaterally consistent with aspiration). Absent: normal lung sounds bilaterally - Cardiovascular Cardiovascular exam: Present: normal rhythm, tachycardia - Abdominal Exam Abdominal exam: Present: soft - Male exam: Present: normal inspection - Extremities Exam Extremities exam: Absent: pedal edema - Expanded Lower Extremity Exam Hip/Pelvis exam: Present: pelvis stable - Neurological Exam Neurological exam: Absent: alert, oriented X3 - Expanded Neurological Exam Patient oriented to: Absent: person, place, time Cranial nerves: facial palsy (VII): Normal (Grossly normal) DTR: patellar (L): 2+, patellar (R): 2+ Coma Scale Eye Opening: None Coma Scale Motor Response: None Coma Scale Verbal Response: None Coma Scale Total: 3 - Skin Skin exam: Present: normal color, diaphoresis Course Course Narrative: Patient seen and examined immediately upon arrival. Patient with snoring and agonal respirations. Patient placed on a monitor with oxygen saturations in the 90s. A few minutes after being in the room. Patient did have a generalized tonic-clonic seizure. 2 mg of IV Ativan were given. RSI was performed with 100 mg rocuronium and 30 mg of etomidate. Please see Dr. Hannah' s procedure note. Intubation was successful with good breath sounds bilaterally. During the patient's seizure. He did become very dusky and cyanotic with a significant drop in his oxygen saturation saturations into the 40s. Suspected aspiration. OG tube was also placed after intubation. Chest x- ray showed good placement of the ET tube and OG tube. Stat CT of the head showed an old left occipital lobe infarct with evolving encephalomalacia. This is discussed with the on-call radiologist and confirmed that this was not acute. Patient was also started on propofol for sedation. At the status epilepticus dose of 25 mcg/kg/m. . Lactic acid an ABG pending - Reevaluation(s) Reevaluation #1: Lactic acid significantly elevated at 9. Fluid bolus given for suspected sepsis due to aspiration pneumonia. Patient also given broad-spectrum antibiotics. I spoke with the on-call sql manager, Dr. Marion. Did recommend soda bicarbonate be given if acidotic. 100 mEq of sodium bicarbonate have been given in addition to his fluids. Patient will be admitted to ICU. Vital Signs Temperature 99 F 04/13/17 12:10 Pulse Rate 102 04/13/17 12:10 Respiratory Rate 32 04/13/17 12:10 Blood Pressure 163/109 04/13/17 12:10 O2 Sat by Pulse Oximetry 94 04/13/17 12:10 Temperature 99.6 F 04/15/17 19:32 Pulse Rate 92 04/15/17 19:32 Respiratory Rate 24 04/15/17 19:32 Blood Pressure 182/108 04/15/17 19:32 O2 Sat by Pulse Oximetry 94 04/15/17 19:32 Oxygen Delivery Oxygen Delivery Ventilator Medical Decision Making - Medical Records Medical records reviewed: Yes I reviewed the patient's medical records. - Lab Data Lab results reviewed: Yes I reviewed the patient's lab results. Result diagrams: 04/15/17 05:30 04/15/17 05:30 Lab Results 04/13/17 04/13/17 04/13/17 Range/Units 12:15 12:19 12:19 WBC (4.3-11.1) K/mcL RBC (4.19-5.50) M/mcL Hgb (12.9-16.9) g/dL Hct (37.5-50.1) % MCV (83.0-100.0) fL MCH (28.0-33.3) pg MCHC (31.6-35.5) g/dL RDW (11.5-14.5) % Plt Count (140-400) K/mcL MPV (9.4-12.4) fL Immature Gran % (0-4) % Seg Neutrophils % % Lymphocytes % % Monocytes % % Eosinophils % % Basophils % % Neutrophils # (1.6-8.9) K/mcL Lymphocytes # (0.6-4.6) K/mcL Monocytes # (0.0-1.3) K/mcL Eosinophils # (0.0-0.6) K/mcL Basophils # (0.0-0.2) K/mcL ABG pH (7.32-7.45) pH Units ABG pCO2 (35-45) mmHg ABG pO2 (85-104) mmHg ABG HCO3 (21-27) mEq/L ABG Total CO2 (20-26) mEq/L ABG O2 Saturation (95-98) % ABG Base Excess (-2 to 3) mEq/L Sodium 139 (136-145) mEq/L Potassium 4.8 H (3.5-4.5) mEq/L Chloride 101 (98-109) mEq/L Carbon Dioxide 9 L* (19-29) mEq/L BUN 44 H (8-26) mg/dL Creatinine 2.51 H (0.72-1.25) mg/dL Est GFR ( Amer) 32 L (> 60) Est GFR (Non-Af Amer) 27 L (> 60) BUN/Creatinine Ratio 18 (6-26) Glucose 303 H (70-99) mg/dL POC Glucose 272 H (58-89) Calculated Osmolality 311 H (280-300) Lactic Acid (0.5-2.2) mmol/L Calcium 11.4 H (8.6-10.8) mg/dL Phosphorus 4.9 H (2.3-4.7) mg/dL Magnesium 2.1 (1.6-2.6) mg/dL Total Bilirubin 0.5 (0.2-1.2) mg/dL AST 21 (5-34) Units/L ALT 12 (0-55) Units/L Alkaline Phosphatase 145 H (38-126) Units/L Serum Total Protein 9.1 H (6.0-8.3) g/dL Albumin 3.7 (3.5-5.0) g/dL Globulin 5.4 H (2.4-3.5) g/dL Albumin/Globulin Ratio 0.7 L (1.1-2.2) Ur Specimen Adequacy Urine Color (Yellow) Urine Clarity (Clear) Urine pH (5.0-8.0) pH Units Ur Specific Dougherty (1.010-1.025) Urine Protein (Neg-Trace) mg/dL Urine Glucose (UA) (Normal) mg/dL Urine Ketones (Negative) mg/dL Urine Blood (Negative) Urine Nitrite (Negative) Urine Bilirubin (Negative) Urine Urobilinogen (Normal) mg/dL Ur Leukocyte Esterase (Negative) Urine Microscopic RBC (0-3) per hpf Urine Microscopic WBC (0-3) per hpf Ur Squamous Epith Cells (None-Few) per lpf Ur Renal Epithelial Cell (None-Few) per hpf Amorphous Sediment (Few) Urine Bacteria (None-Few) per hpf Hyaline Casts (None-Few) per lpf Granular Casts (None Seen) per lpf Urine Opiates Screen (Pdsyru=673) ng/mL Acetaminophen 1.0 L (10-30) mcg/mL Ur Barbiturates Screen (Zrqdjq=403) ng/mL Ur Phencyclidine Scrn (Cutoff=25) ng/mL Ur Amphetamines Screen (Wwticl=0740) ng/mL U Benzodiazepines Scrn (Raejrj=673) ng/mL Urine Cocaine Screen (Cutoff= 300) ng/mL U Marijuana (THC) Screen (Cutoff = 50) ng/mL Specimen Rejected MCV Delta Person Notif of Crit 04/13/17 04/13/17 04/13/17 Range/Units 12:55 12:55 13:08 WBC 21.0 H (4.3-11.1) K/mcL RBC 5.48 (4.19-5.50) M/mcL Hgb 15.6 (12.9-16.9) g/dL Hct 48.6 (37.5-50.1) % MCV 88.7 (83.0-100.0) fL MCH 28.5 (28.0-33.3) pg MCHC 32.1 (31.6-35.5) g/dL RDW 12.9 (11.5-14.5) % Plt Count 325 (140-400) K/mcL MPV 10.8 (9.4-12.4) fL Immature Gran % 1.6 (0-4) % Seg Neutrophils % 69.2 % Lymphocytes % 22.4 % Monocytes % 5.7 % Eosinophils % 0.6 % Basophils % 0.5 % Neutrophils # 14.5 H (1.6-8.9) K/mcL Lymphocytes # 4.7 H (0.6-4.6) K/mcL Monocytes # 1.2 (0.0-1.3) K/mcL Eosinophils # 0.1 (0.0-0.6) K/mcL Basophils # 0.1 (0.0-0.2) K/mcL ABG pH (7.32-7.45) pH Units ABG pCO2 (35-45) mmHg ABG pO2 (85-104) mmHg ABG HCO3 (21-27) mEq/L ABG Total CO2 (20-26) mEq/L ABG O2 Saturation (95-98) % ABG Base Excess (-2 to 3) mEq/L Sodium (136-145) mEq/L Potassium (3.5-4.5) mEq/L Chloride (98-109) mEq/L Carbon Dioxide (19-29) mEq/L BUN (8-26) mg/dL Creatinine (0.72-1.25) mg/dL Est GFR ( Amer) (> 60) Est GFR (Non-Af Amer) (> 60) BUN/Creatinine Ratio (6-26) Glucose (70-99) mg/dL POC Glucose (58-89) Calculated Osmolality (280-300) Lactic Acid (0.5-2.2) mmol/L Calcium (8.6-10.8) mg/dL Phosphorus (2.3-4.7) mg/dL Magnesium (1.6-2.6) mg/dL Total Bilirubin (0.2-1.2) mg/dL AST (5-34) Units/L ALT (0-55) Units/L Alkaline Phosphatase (38-126) Units/L Serum Total Protein (6.0-8.3) g/dL Albumin (3.5-5.0) g/dL Globulin (2.4-3.5) g/dL Albumin/Globulin Ratio (1.1-2.2) Ur Specimen Adequacy See below A Urine Color Yellow (Yellow) Urine Clarity Slightly Hazy (Clear) Urine pH 5.0 (5.0-8.0) pH Units Ur Specific Dougherty 1.027 H (1.010-1.025) Urine Protein >=300 H (Neg-Trace) mg/dL Urine Glucose (UA) >=1000 H (Normal) mg/dL Urine Ketones Negative (Negative) mg/dL Urine Blood Large H (Negative) Urine Nitrite Negative (Negative) Urine Bilirubin Negative (Negative) Urine Urobilinogen Normal (Normal) mg/dL Ur Leukocyte Esterase Negative (Negative) Urine Microscopic RBC TNTC H (0-3) per hpf Urine Microscopic WBC 5-15 H (0-3) per hpf Ur Squamous Epith Cells Many H (None-Few) per lpf Ur Renal Epithelial Cell Few (None-Few) per hpf Amorphous Sediment Present (Few) Urine Bacteria Many H (None-Few) per hpf Hyaline Casts None Seen (None-Few) per lpf Granular Casts Few H (None Seen) per lpf Urine Opiates Screen Negative (Tdmbcy=611) ng/mL Acetaminophen (10-30) mcg/mL Ur Barbiturates Screen Negative (Skldwh=618) ng/mL Ur Phencyclidine Scrn Negative (Cutoff=25) ng/mL Ur Amphetamines Screen Negative (Frthpl=5031) ng/mL U Benzodiazepines Scrn Negative (Masqzm=774) ng/mL Urine Cocaine Screen Negative (Cutoff= 300) ng/mL U Marijuana (THC) Screen Negative (Cutoff = 50) ng/mL Specimen Rejected Person Notif of Crit 04/13/17 04/13/17 Range/Units 13:13 13:46 WBC (4.3-11.1) K/mcL RBC (4.19-5.50) M/mcL Hgb (12.9-16.9) g/dL Hct (37.5-50.1) % MCV (83.0-100.0) fL MCH (28.0-33.3) pg MCHC (31.6-35.5) g/dL RDW (11.5-14.5) % Plt Count (140-400) K/mcL MPV (9.4-12.4) fL Immature Gran % (0-4) % Seg Neutrophils % % Lymphocytes % % Monocytes % % Eosinophils % % Basophils % % Neutrophils # (1.6-8.9) K/mcL Lymphocytes # (0.6-4.6) K/mcL Monocytes # (0.0-1.3) K/mcL Eosinophils # (0.0-0.6) K/mcL Basophils # (0.0-0.2) K/mcL ABG pH 7.11 L* (7.32-7.45) pH Units ABG pCO2 53 H (35-45) mmHg ABG pO2 145 H (85-104) mmHg ABG HCO3 17 L (21-27) mEq/L ABG Total CO2 18 L (20-26) mEq/L ABG O2 Saturation 98 (95-98) % ABG Base Excess -13 L (-2 to 3) mEq/L Sodium (136-145) mEq/L Potassium (3.5-4.5) mEq/L Chloride (98-109) mEq/L Carbon Dioxide (19-29) mEq/L BUN (8-26) mg/dL Creatinine (0.72-1.25) mg/dL Est GFR ( Amer) (> 60) Est GFR (Non-Af Amer) (> 60) BUN/Creatinine Ratio (6-26) Glucose (70-99) mg/dL POC Glucose (58-89) Calculated Osmolality (280-300) Lactic Acid 9.1 H* (0.5-2.2) mmol/L Calcium (8.6-10.8) mg/dL Phosphorus (2.3-4.7) mg/dL Magnesium (1.6-2.6) mg/dL Total Bilirubin (0.2-1.2) mg/dL AST (5-34) Units/L ALT (0-55) Units/L Alkaline Phosphatase (38-126) Units/L Serum Total Protein (6.0-8.3) g/dL Albumin (3.5-5.0) g/dL Globulin (2.4-3.5) g/dL Albumin/Globulin Ratio (1.1-2.2) Ur Specimen Adequacy Urine Color (Yellow) Urine Clarity (Clear) Urine pH (5.0-8.0) pH Units Ur Specific Dougherty (1.010-1.025) Urine Protein (Neg-Trace) mg/dL Urine Glucose (UA) (Normal) mg/dL Urine Ketones (Negative) mg/dL Urine Blood (Negative) Urine Nitrite (Negative) Urine Bilirubin (Negative) Urine Urobilinogen (Normal) mg/dL Ur Leukocyte Esterase (Negative) Urine Microscopic RBC (0-3) per hpf Urine Microscopic WBC (0-3) per hpf Ur Squamous Epith Cells (None-Few) per lpf Ur Renal Epithelial Cell (None-Few) per hpf Amorphous Sediment (Few) Urine Bacteria (None-Few) per hpf Hyaline Casts (None-Few) per lpf Granular Casts (None Seen) per lpf Urine Opiates Screen (Huplvs=417) ng/mL Acetaminophen (10-30) mcg/mL Ur Barbiturates Screen (Vehusc=167) ng/mL Ur Phencyclidine Scrn (Cutoff=25) ng/mL Ur Amphetamines Screen (Cbunpe=2473) ng/mL U Benzodiazepines Scrn (Hxoaop=649) ng/mL Urine Cocaine Screen (Cutoff= 300) ng/mL U Marijuana (THC) Screen (Cutoff = 50) ng/mL Specimen Rejected Person Notif of Waldemar toledo - Radiology Data Radiology results reviewed: Yes I reviewed the patient's radiology results. KUB X-Ray 04/13/17 00:00 IMPRESSION: Adequate position of the orogastric tube D/ / Hal Styles MD / Hal Styles MD Interpreting Provider: Hal Styles MD Chest X-Ray 04/13/17 12:24 IMPRESSION: Endotracheal tube in good position. Mild bibasilar atelectasis, edema or pneumonia D/ / Hal Styles MD / Hal Styles MD Interpreting Provider: Hal Styles MD Head CT 04/13/17 12:25 IMPRESSION: 1. No acute intracranial abnormality. 2. Chronic mastoiditis and left maxillary sinusitis. 3. Evolving left occipital lobe infarct with late subacute appearance. D/ / 04/13/2017 13:09:34 Parth Juarez MD / Shaniqua Deng Interpreting Provider: Parth Juarez MD - EKG Data EKG #1 EKG attestation: Yes I reviewed and interpreted this EKG. EKG results narrative: Sinus tach, rate 114, AK interval 160, QRS 97, QTC 396, normal axis, no acute ischemic changes. Critical Care Time Critical Care Time: Yes Total Critical Care Time: 60 Attestation: Critical care performed: Time is exclusive of separately billable procedures. Time includes: direct patient care, patient reassessment, coordination of patient care, interpretation of data (laboratory data, radiology data, and respiratory data), review of patient's medical records, medical consultation and documentation of patient care. Procedures included in critical care time: Procedures excluded from critical care time: Intubation Attestation Statement - Attestation Attestation: I examined this patient and my medical decision-making was reviewed with the Resident Physicians, Drs. Villalba and Brielle. I agree with the documented findings, disposition and treatment plan as described except to the extent set forth below. Pt is a 56 yo wm, hx recent CVA, currently resides in [facility] brought ot ED by EMS for seizures. Pt with no hx prior epilepsy, nor seizures post CVA. Pt arrives with agonal respirations and unresponsive by EMS. Pt seen immediately on arrival , and placed in room. ED alert called for assistance. Within a few mintues of entering room, pt began having gen tonic-clonic seizure activity. Pt with IV access x 1 by EMS, and given ativan IV. Seizure activity ceased. [facility] who sent dilantin loading dose to be started IV. Immediately prepared to intubate for airway protection. Pt received RSI for direct intubation. Please see procedure note for details of intubation. NGT and gaona placed, and pt sent for STAT CT head. Started on propofol for sedation. Accucheck on arrival showed BS in 200's. 2nd IV had been initiated as well. PCXR showed good ETT/NGT placement viewed at bedside prior to pt being sent to CT scanner. VSS prior to transfer to CT. No family with pt to provide any additional information, recent DC summary provided by social work nurse. Pt re-evaluated upon return from CT, no seizure activity during CT scanning. CT brain showed prior post infarct, subacute, no acute abnormality. Labs had been sent previously, ABG performed. EKG shows sinus tach without ischemia. Labs show elev wbc, multifactorial. IVF's and lactate added. Pt started on empiric antibx after CXR shows atelectasis vs pneumonia, likely aspiration. Pt with lactate of 9. CRYS. Contacted sql manager, who recommended sodium bicarbonate be addedd to IVF's, and will follow glucose closely. Pt admitted to ICU for further critical care mgmt, critical condition following likely extension of infarct which caused seizures. Spoke with [facility] caregiver, who has cared for pt for past 3-4 years, knows him well. She reports that at 1000 this am, she was visiting with him, and he was experiencing transient lapses in consciousness with reportedly rapid eye movements, then following a pause of a few mintues, pt would again be verbally responsive, but unaware of the episode. She stated that she reported this activity to his nurse, who checked his VS, and provided reassurance. Caregiver was updated as to the pt's condition and ICU admission. Pt admitted for status epilepticus/CRYS/lactic acidosis/aspiration pneumonia/resp fx.
[2017-04-13] MEDS ORDERED: Lacri-Lube 3.5 GM TUBE BOTH EYES PRN (15:26)
[2017-04-13 15:54] LABS: ABG Base Excess -4 mEq/L (-2 to 3); ABG HCO3 23 mEq/L (21-27); ABG Oxygen Saturation 100 % (95-98); ABG PCO2 48 mmHg (35-45); ABG PH 7.29 pH Units (7.32-7.45); ABG PO2 235 mmHg (85-104); ABG TCO2 24 mEq/L (20-26); Blood Gas Modality ASSIST CONTROL; Blood Gas PEEP 5 cm H2O; Blood Gas Respiration Rate 14; Blood Gas VT 500 cc
[2017-04-13] MEDS ORDERED: FentaNYL (PF) 1,000 MCG in 0.9 % Sodium Chloride 80 ML IVC SCH (16:00)
--- NOTE | 2017-04-13 16:07 | Pulmonology History & Physical ---
<Nigel Kaur - Last Filed: 04/13/17 16:21> Date of Encounter: 04/13/17 Time of Encounter: 16:01 Assessment and Plan (1) Sepsis Current visit: Yes Status: Acute SIRS: HR >100, RR 32, WBC 21. Lactic acid 9.1. Possible sources most likely community/healthcare/aspiration PNA vs left maxillary sinusitis vs UTI vs unknown. Organ involvement includes Kidneys, lungs. - most recent ABG pH 7.29, CO2 47.5 pO2 235 HCO3 22.6 SpO2 99 Lactic acid 3.3 - no current hx that would suggest MRSA, will consider - start zosyn renal dose - closely monitor vitals, and labs Qualifiers: Qualified Code(s): A41.9 - Sepsis, unspecified organism (2) Metabolic acidosis with respiratory acidosis Current visit: Yes Status: Acute Respiratory Acidosis with Anion Gap Acidosis. on admission pH 7.11, pCO2 53 pO2 145 HCO3 17 SatO2 98. - last ABG pH 7.29, CO2 47.5 pO2 235 HCO3 22.6 SpO2 99 Lactic acid 3.3. After receiving 3L IVF + Sodium Bicarb 100 meq - will start D5W + sodium bicarb 2 for metabolic acidosis - continue mech vent for respiratory acidosis (3) Tonic clonic seizures Current visit: Yes Status: Acute 3 witnessed tonic clonic seiqure on day of admission, with no previous history. Hx of CVA 1 month ago. - currently IV keppra + propofol - consult to neurology, will get MRI when stable (4) Acute respiratory failure with hypercapnia Current visit: Yes Status: Acute Patient was intubated after having seizure in ED. CXR - left lower lobe opacities. currently sedated and intubated. Most recent ABG pH 7.29 CO2 47.5 PO2 235 HCO3 22.6 SpO2 99 Lac 6.6. Patient has smoking history - continue mechanical vent - continue zosyn (5) Acute kidney injury Current visit: No Status: Acute Cr on admission 2.51, baseline 1.68 - continue fluid resuscitation - will closely monitor Cr (6) Lactic acidosis Current visit: Yes Status: Acute Lactic Acidosis 9.1 on admission, repeat 6.6 - will closely follow (7) DVT prophylaxis Current visit: Yes Status: Acute due to possible procedure tomorrow, will hold heparin until further decision. - mech prophylaxis History of Present Illness Chief complaint: Seizure HPI: Mr. Squires is a 56 year old male intubated in the ED after having a tonic clonic seizure in the ED hx includes 2x witnessed tonic clonic seizures by his nurse at his [facility] earlier today w/ no previous seizure history prior to today, CVA-occipital tempral infarction approximately 1 month ago. PMx diabetes , and CAD. Patient was found to be in resp + metabolic acidosis with a lactic acidosis of 9.1 and was given 3L IVF NS, and 2 amps of bicarb. Patient is currently intubated and sedated. Past Med Surg Social Fam HX - Past Medical History Medical history: diabetes, hypertension Psychiatric history: depression - Past Surgical History Surgical History: coronary bypass (CABG) - Social History Smoking Status: Former smoker Smokeless Tobacco Status: No Alcohol use: none Drug use: none - Family History Mother Living Status: Father Living Status: Medications and Allergies Acetaminophen [Tylenol] 1,000 mg PO BID PRN 03/14/17 [History] Aspirin Enteric Coated [Aspirin EC] 81 mg PO DAILY 03/14/17 [History] Atorvastatin Calcium [Lipitor] 80 mg PO HS 03/14/17 [History] Benzonatate [Tessalon] 100 mg PO Q8H PRN 03/14/17 [History] Cholecalciferol (D-3) [Vitamin D] 2,000 unit PO DAILY 03/14/17 [History] Clopidogrel [Plavix] 75 mg PO DAILY 03/14/17 [History] Docusate [Colace] 200 mg PO DAILY PRN 03/14/17 [History] Finasteride [Proscar] 5 mg PO DAILY 03/14/17 [History] Gabapentin [Neurontin] 300 mg PO TID 03/14/17 [History] Insulin NPH Human Isophane [Novolin N] 30 unit SQ QAM 03/14/17 [History] Insulin NPH Human Isophane [Novolin N] 35 unit SQ QPM 03/14/17 [History] Lisinopril [Zestril] 20 mg PO DAILY 03/14/17 [History] Metoprolol [Lopressor] 125 mg PO BID 03/14/17 [History] Nitroglycerin [Nitrostat] 0.4 mg SL Q5M PRN 03/14/17 [History] Propylene Glycol/Peg 400 [Systane 0.3-0.4% Eye Drops] 1 drop BOTH EYES QID 03/14 [History] glipiZIDE [Glipizide] 20 mg PO BID 03/14/17 [History] Insulin LISPRO [HumaLOG] 0 - 12 units SQ TID PRN 04/13/17 [History] 3 Allergy/AdvReac Type Severity Reaction Status Date / Time Iodinated Contrast- Oral and Allergy Rash Verified 03/14/17 15:53 IV Dye ROS unobtainable: due to endotracheal tube All Systems: A 10-system review of systems was performed and is negative for pertinent findings except as documented above in the HPI. Physical Examination Vital Signs: Vital Signs, Last 4 Hours Pulse Resp BP Pulse Ox 04/13/17 14:56 75 12 115/68 100 04/13/17 14:29 72 12 108/68 100 General appearance: asleep Effort: other (currently mechanically ventilated) Auscultation: bilateral: clear Cardiovascular: regular rate and rhythm Gastrointestinal: absent bowel sounds Integumentary: normal Extremities: pink and warm, edema (+2/4) Musculoskeletal: no deformities unable to assess due to mental status Results - Laboratory Findings CBC and BMP: 04/13/17 13:08 04/13/17 12:19 ABG ABG pH 7.29 pH Units (7.32-7.45) L D 04/13/17 15:50 ABG pCO2 48 mmHg (35-45) H 04/13/17 15:50 ABG pO2 235 mmHg (85-104) H D 04/13/17 15:50 ABG O2 Saturation 100 % (95-98) H 04/13/17 15:50 Abnormal lab findings: Abnormal lab results WBC 21.0 K/mcL (4.3-11.1) H 04/13/17 13:08 Neutrophils # 14.5 K/mcL (1.6-8.9) H 04/13/17 13:08 Lymphocytes # 4.7 K/mcL (0.6-4.6) H 04/13/17 13:08 ABG pH 7.29 pH Units (7.32-7.45) L D 04/13/17 15:50 ABG pCO2 48 mmHg (35-45) H 04/13/17 15:50 ABG pO2 235 mmHg (85-104) H D 04/13/17 15:50 ABG O2 Saturation 100 % (95-98) H 04/13/17 15:50 ABG Base Excess -4 mEq/L (-2 to 3) L 04/13/17 15:50 Lactate 3.3 mmol/L (0.7-2.1) H 04/13/17 15:50 Potassium 4.8 mEq/L (3.5-4.5) H 04/13/17 12:19 Carbon Dioxide 9 mEq/L (19-29) L* 04/13/17 12:19 BUN 44 mg/dL (8-26) H 04/13/17 12:19 Creatinine 2.51 mg/dL (0.72-1.25) H 04/13/17 12:19 Est GFR ( Amer) 32 (> 60) L 04/13/17 12:19 Est GFR (Non-Af Amer) 27 (> 60) L 04/13/17 12:19 Glucose 303 mg/dL (70-99) H 04/13/17 12:19 POC Glucose 318 (58-89) H 04/13/17 15:47 Calculated Osmolality 311 (280-300) H 04/13/17 12:19 Lactic Acid 9.1 mmol/L (0.5-2.2) H* 04/13/17 13:46 Calcium 11.4 mg/dL (8.6-10.8) H 04/13/17 12:19 Phosphorus 4.9 mg/dL (2.3-4.7) H 04/13/17 12:19 Alkaline Phosphatase 145 Units/L (38-126) H 04/13/17 12:19 Serum Total Protein 9.1 g/dL (6.0-8.3) H 04/13/17 12:19 Globulin 5.4 g/dL (2.4-3.5) H 04/13/17 12:19 Albumin/Globulin Ratio 0.7 (1.1-2.2) L 04/13/17 12:19 Ur Specimen Adequacy See below A 04/13/17 12:55 Ur Specific [place] 1.027 (1.010-1.025) H 04/13/17 12:55 Urine Protein >=300 mg/dL (Neg-Trace) H 04/13/17 12:55 Urine Glucose (UA) >=1000 mg/dL (Normal) H 04/13/17 12:55 Urine Blood Large (Negative) H 04/13/17 12:55 Urine Microscopic RBC TNTC per hpf (0-3) H 04/13/17 12:55 Urine Microscopic WBC 5-15 per hpf (0-3) H 04/13/17 12:55 Ur Squamous Epith Cells Many per lpf (None-Few) H 04/13/17 12:55 Urine Bacteria Many per hpf (None-Few) H 04/13/17 12:55 Granular Casts Few per lpf (None Seen) H 04/13/17 12:55 Acetaminophen 1.0 mcg/mL (10-30) L 04/13/17 12:19 <Andrew Marion - Last Filed: 04/13/17 20:54> Date of Encounter: 04/13/17 History of Present Illness HPI: Mr. Squires is a 56 year old male All Systems: A 10-system review of systems was performed and is negative for pertinent findings except as documented above in the HPI. Physical Examination Vital Signs: Vital Signs, Last 4 Hours Temp Pulse Resp BP Pulse Ox 04/13/17 20:32 98.3 F 04/13/17 20:00 65 17 76/53 98 04/13/17 19:59 16 96 04/13/17 19:00 65 16 89/61 97 04/13/17 18:00 61 15 86/55 97 04/13/17 17:00 73 14 107/68 96 04/13/17 16:59 16 112/71 100 Results - Laboratory Findings CBC and BMP: 04/13/17 13:08 04/13/17 12:19 ABG ABG pH 7.29 pH Units (7.32-7.45) L D 04/13/17 15:50 ABG pCO2 48 mmHg (35-45) H 04/13/17 15:50 ABG pO2 235 mmHg (85-104) H D 04/13/17 15:50 ABG O2 Saturation 100 % (95-98) H 04/13/17 15:50 Abnormal lab findings: Abnormal lab results WBC 21.0 K/mcL (4.3-11.1) H 04/13/17 13:08 Neutrophils # 14.5 K/mcL (1.6-8.9) H 04/13/17 13:08 Lymphocytes # 4.7 K/mcL (0.6-4.6) H 04/13/17 13:08 ABG pH 7.29 pH Units (7.32-7.45) L D 04/13/17 15:50 ABG pCO2 48 mmHg (35-45) H 04/13/17 15:50 ABG pO2 235 mmHg (85-104) H D 04/13/17 15:50 ABG O2 Saturation 100 % (95-98) H 04/13/17 15:50 ABG Base Excess -4 mEq/L (-2 to 3) L 04/13/17 15:50 Lactate 3.3 mmol/L (0.7-2.1) H 04/13/17 15:50 Potassium 4.8 mEq/L (3.5-4.5) H 04/13/17 12:19 Carbon Dioxide 9 mEq/L (19-29) L* 04/13/17 12:19 BUN 44 mg/dL (8-26) H 04/13/17 12:19 Creatinine 2.51 mg/dL (0.72-1.25) H 04/13/17 12:19 Est GFR ( Amer) 32 (> 60) L 04/13/17 12:19 Est GFR (Non-Af Amer) 27 (> 60) L 04/13/17 12:19 Glucose 303 mg/dL (70-99) H 04/13/17 12:19 POC Glucose 318 (58-89) H 04/13/17 15:47 Calculated Osmolality 311 (280-300) H 04/13/17 12:19 Lactic Acid 6.6 mmol/L (0.5-2.2) H* 04/13/17 16:11 Calcium 11.4 mg/dL (8.6-10.8) H 04/13/17 12:19 Phosphorus 4.9 mg/dL (2.3-4.7) H 04/13/17 12:19 Alkaline Phosphatase 145 Units/L (38-126) H 04/13/17 12:19 Troponin I 0.08 ng/mL (0-0.03) H* 04/13/17 16:11 Serum Total Protein 9.1 g/dL (6.0-8.3) H 04/13/17 12: Globulin 5.4 g/dL (2.4-3.5) H 04/13/17 12: Albumin/Globulin Ratio 0.7 (1.1-2.2) L 04/13/17 12:19 Ur Specimen Adequacy See below A 04/13/17 12:55 Ur Specific [place] 1.027 (1.010-1.025) H 04/13/17 12:55 Urine Protein >=300 mg/dL (Neg-Trace) H 04/13/17 12:55 Urine Glucose (UA) >=1000 mg/dL (Normal) H 04/13/17 12:55 Urine Blood Large (Negative) H 04/13/17 12:55 Urine Microscopic RBC TNTC per hpf (0-3) H 04/13/17 12:55 Urine Microscopic WBC 5-15 per hpf (0-3) H 04/13/17 12:55 Ur Squamous Epith Cells Many per lpf (None-Few) H 04/13/17 12:55 Urine Bacteria Many per hpf (None-Few) H 04/13/17 12:55 Granular Casts Few per lpf (None Seen) H 04/13/17 12:55 Acetaminophen 1.0 mcg/mL (10-30) L 04/13/17 12:19 - Attending Attestation I examined this patient and my medical decision-making was reviewed with the Resident Physician. I agree with the documented findings, disposition and treatment plan as described except to the extent set forth below. Patient seen and examined. Labs, radiology, chart personally reviewed. Agree with resident's history and physical, assessment, plan with following comments: [employer]: Patient doesn't follows commands, Patient is sedated and talked to neurologist and he agreed to started Keppra. Continue Propofol for sedation. Reviewed CT chest with old changes. Pulmonary: Acceptable oxygenation and ventilation. Patient with acute hypercapnic respiratory failure and changed the vent setting. Patient will remain intubated for airway protection. Probable pneumonia and continue antibiotics. Cardiovascular: Monitor for now. GI: Nutrition per dietary and GI prophylaxis per routine Heme: DVT prophylaxis per routine ID: Continue antibiotics and plan to de-escalation. Patient has SIRS criteria and has sepsis like picture. I suspect lactic acidosis from seizure. Renal; urine out put and renal funtion reviewed. CRYS and will have patient on bicarb drip for lactic acidosis. Endorcine: blood glucose is monitored Lines: all lines checked and no evidence of infections Skin: skin care to prevent pressure ulcers per nursing routine care Patient does not have a family member around to date and all history is taken from the chart and ER physician. I spent 45 min of Critical Care time with this patient. It involved decision making of high complexity to assess, manipulate, and support vital organ system failure and/or to prevent further life threatening deterioration of the patient' s condition. The time involved in the performance of separately reportable procedures was not counted toward critical care time.
[2017-04-13] MEDS: Lacri-Lube 3.5 GM TUBE BOTH EYES SCH ×3 (16:29→23:33)
[2017-04-13] MEDS ORDERED: levETIRAcetam 1,000 MG in 0.9 % Sodium Chloride 100 ML IVPB ONE (16:30)
[2017-04-13] MEDS: *HR* Heparin 5,000 UNIT/ML VIAL SQ SCH (16:30)
[2017-04-13] MEDS ORDERED: D5% in 0.9% NACL 1,000 ML IVC SCH (16:30)
[2017-04-13] MEDS: Pantoprazole 40 MG VIAL IVP SCH (16:30)
--- NOTE | 2017-04-13 16:36 | Neurology - Consult Note ---
<Brian Conway - Last Filed: 04/13/17 16:52> Date of Encounter: 04/13/17 Time of Encounter: 16:00 Assessment and Plan (1) New onset seizure Current Visit: Yes Status: Acute Patient with 3 witnessed seizures. His last seizure was in the ER and due to concerns with him protecting his airway, he was intubated. An EEG was performed that showed that he was not in status epilepticus. A significant neurological exam could not be performed as the patient was intubated and sedated. He did have a CVA 1 month ago, that left him with little residual deficits other than some confusion and occasional blurry vision. A CT performed in the ER shows potential evolution of the stroke, though appears late subacute. Will obtain MRI when patient stable Start Aspirin Recommend changing Depakote to Keppra with 1000mg loading and 500 mg BID Will reassess neurological status when no longer intubated History of Present Illness Chief complaint: Seizures, altered mental status HPI: Mr. Squires is a 56 year old male with past medical history of diabetes, hypertension, and CVA 1 month ago (with little documented residual deficits) was brought to [facility] from the facility at which he resides because of seizure activity. He has had 3 reported seizures today: 1 at the nursing facility, 1 with EMS, and 1 in the ER at [facility]. All described as tonic-clonic in nature. His acute seizure was treated and he was intubated at that time for protection of his airway. An EEG was performed after admission that did not show any current epileptic activity. He has no known history of seizures in the past, but did have a CVA 1 month ago that was seen by MRI in the occipital region of his brain. A CT performed in the ER showed possible evolution of the stroke, whether this was from that time or newer, is hard to assess on the CT. Past Med Surg Social Fam HX - Past Medical History Medical history: diabetes, hypertension Psychiatric history: depression - Past Surgical History Surgical History: coronary bypass (CABG) - Social History Smoking Status: Former smoker Smokeless Tobacco Status: No Alcohol use: none Drug use: none - Family History Mother Living Status: Father Living Status: Medications and Allergies Acetaminophen [Tylenol] 1,000 mg PO BID PRN 03/14/17 [History] Aspirin Enteric Coated [Aspirin EC] 81 mg PO DAILY 03/14/17 [History] Atorvastatin Calcium [Lipitor] 80 mg PO HS 03/14/17 [History] Benzonatate [Tessalon] 100 mg PO Q8H PRN 03/14/17 [History] Cholecalciferol (D-3) [Vitamin D] 2,000 unit PO DAILY 03/14/17 [History] Clopidogrel [Plavix] 75 mg PO DAILY 03/14/17 [History] Docusate [Colace] 200 mg PO DAILY PRN 03/14/17 [History] Finasteride [Proscar] 5 mg PO DAILY 03/14/17 [History] Gabapentin [Neurontin] 300 mg PO TID 03/14/17 [History] Insulin NPH Human Isophane [Novolin N] 30 unit SQ QAM 03/14/17 [History] Insulin NPH Human Isophane [Novolin N] 35 unit SQ QPM 03/14/17 [History] Lisinopril [Zestril] 20 mg PO DAILY 03/14/17 [History] Metoprolol [Lopressor] 125 mg PO BID 03/14/17 [History] Nitroglycerin [Nitrostat] 0.4 mg SL Q5M PRN 03/14/17 [History] Propylene Glycol/Peg 400 [Systane 0.3-0.4% Eye Drops] 1 drop BOTH EYES QID 03/14 [History] glipiZIDE [Glipizide] 20 mg PO BID 03/14/17 [History] Insulin LISPRO [HumaLOG] 0 - 12 units SQ TID PRN 04/13/17 [History] 3 Allergy/AdvReac Type Severity Reaction Status Date / Time Iodinated Contrast- Oral and Allergy Rash Verified 03/14/17 15:53 IV Dye ROS unobtainable: due to endotracheal tube, due to mental status Physical Examination - Vital Signs Vital Signs: Initial Vital Signs Temp Pulse Resp BP Pulse Ox 99 F 102 32 163/109 94 04/13/17 12:10 04/13/17 12:10 04/13/17 12:10 04/13/17 12:10 04/13/17 12:10 - Exam Exam: General: Intubated and sedated, some small motions were observed when sedation was lightened for his EEG HEENT: Normocephalic, small abrasion on nose, trachea midline, Conjunctiva pink , sclera anicteric, oral mucosa moist, no orophargeal erythema or exudates Extremities: No pedal edema appreciated, warm, lower extremity pulses palpable and symmetrical Neurological: Patient intubated and sedated currently, does not respond to external stimuli unable to perform much of the neurological exam, PERRL, no epileptic activity seen on EEG Results - Laboratory Findings CBC and BMP: 04/13/17 13:08 04/13/17 12:19 Abnormal lab findings: Abnormal lab results WBC 21.0 K/mcL (4.3-11.1) H 04/13/17 13:08 Neutrophils # 14.5 K/mcL (1.6-8.9) H 04/13/17 13:08 Lymphocytes # 4.7 K/mcL (0.6-4.6) H 04/13/17 13:08 ABG pH 7.29 pH Units (7.32-7.45) L D 04/13/17 15:50 ABG pCO2 48 mmHg (35-45) H 04/13/17 15:50 ABG pO2 235 mmHg (85-104) H D 04/13/17 15:50 ABG O2 Saturation 100 % (95-98) H 04/13/17 15:50 ABG Base Excess -4 mEq/L (-2 to 3) L 04/13/17 15:50 Lactate 3.3 mmol/L (0.7-2.1) H 04/13/17 15:50 Potassium 4.8 mEq/L (3.5-4.5) H 04/13/17 12:19 Carbon Dioxide 9 mEq/L (19-29) L* 04/13/17 12:19 BUN 44 mg/dL (8-26) H 04/13/17 12:19 Creatinine 2.51 mg/dL (0.72-1.25) H 04/13/17 12:19 Est GFR ( Amer) 32 (> 60) L 04/13/17 12:19 Est GFR (Non-Af Amer) 27 (> 60) L 04/13/17 12:19 Glucose 303 mg/dL (70-99) H 04/13/17 12:19 POC Glucose 318 (58-89) H 04/13/17 15:47 Calculated Osmolality 311 (280-300) H 04/13/17 12:19 Lactic Acid 9.1 mmol/L (0.5-2.2) H* 04/13/17 13:46 Calcium 11.4 mg/dL (8.6-10.8) H 04/13/17 12:19 Phosphorus 4.9 mg/dL (2.3-4.7) H 04/13/17 12:19 Alkaline Phosphatase 145 Units/L (38-126) H 04/13/17 12:19 Serum Total Protein 9.1 g/dL (6.0-8.3) H 04/13/17 12:19 Globulin 5.4 g/dL (2.4-3.5) H 04/13/17 12:19 Albumin/Globulin Ratio 0.7 (1.1-2.2) L 04/13/17 12:19 Ur Specimen Adequacy See below A 04/13/17 12:55 Ur Specific [place] 1.027 (1.010-1.025) H 04/13/17 12:55 Urine Protein >=300 mg/dL (Neg-Trace) H 04/13/17 12:55 Urine Glucose (UA) >=1000 mg/dL (Normal) H 04/13/17 12:55 Urine Blood Large (Negative) H 04/13/17 12:55 Urine Microscopic RBC TNTC per hpf (0-3) H 04/13/17 12:55 Urine Microscopic WBC 5-15 per hpf (0-3) H 04/13/17 12:55 Ur Squamous Epith Cells Many per lpf (None-Few) H 04/13/17 12:55 Urine Bacteria Many per hpf (None-Few) H 04/13/17 12:55 Granular Casts Few per lpf (None Seen) H 04/13/17 12:55 Acetaminophen 1.0 mcg/mL (10-30) L 04/13/17 12:19 Consult Discharge Plan - Plan [facility] Provider[facility] - <Ashley Dill I - Last Filed: 04/13/17 17:01> Date of Encounter: 04/13/17 Assessment and Plan (1) New onset seizure Current Visit: Yes Status: Acute Patient seen and examined agreed with Dr. Conway documentation. Patient seems to have a 3 generalized tonic-clonic seizure as per report, please been intubated and on sedation. A stat EEG did not show any evidence of status epilepticus. Medication affect were noted throughout the study. At this time suggest that we should continue him on anticonvulsive medication suggest to start him on Keppra thousand milligrams loading dose and continue on 500 twice a day and check the level accordingly. Patient remain on seizure precautions at the moment suggest to continue him on sedation. May repeat EEG later on if patient has any any clinical seizure activity. He should have a recent infarction in the left hemisphere without any significant residual deficit as per history CT scan this shows concern of some worsening of this infarct though it could be related to the late effect from the previous stroke at this time suggest continuing him on rectal or aspirin Y G-tube once patient is stable and within MRI to exclude any new infarct. Other treatment is as per ICU team , will follow the patient with you. thank you very much for your consultation Ashley Dill MD History of Present Illness HPI: Mr. Squires is a 56 year old male All Systems: A 10-system review of systems was performed and is negative for pertinent findings except as documented above in the HPI. Physical Examination - Vital Signs Vital Signs: Initial Vital Signs Temp Pulse Resp BP Pulse Ox 99 F 102 32 163/109 94 04/13/17 12:10 04/13/17 12:10 04/13/17 12:10 04/13/17 12:10 04/13/17 12:10 Results - Laboratory Findings CBC and BMP: 04/13/17 13:08 04/13/17 12:19 Abnormal lab findings: Abnormal lab results WBC 21.0 K/mcL (4.3-11.1) H 04/13/17 13:08 Neutrophils # 14.5 K/mcL (1.6-8.9) H 04/13/17 13:08 Lymphocytes # 4.7 K/mcL (0.6-4.6) H 04/13/17 13:08 ABG pH 7.29 pH Units (7.32-7.45) L D 04/13/17 15:50 ABG pCO2 48 mmHg (35-45) H 04/13/17 15:50 ABG pO2 235 mmHg (85-104) H D 04/13/17 15:50 ABG O2 Saturation 100 % (95-98) H 04/13/17 15:50 ABG Base Excess -4 mEq/L (-2 to 3) L 04/13/17 15:50 Lactate 3.3 mmol/L (0.7-2.1) H 04/13/17 15:50 Potassium 4.8 mEq/L (3.5-4.5) H 04/13/17 12:19 Carbon Dioxide 9 mEq/L (19-29) L* 04/13/17 12:19 BUN 44 mg/dL (8-26) H 04/13/17 12:19 Creatinine 2.51 mg/dL (0.72-1.25) H 04/13/17 12:19 Est GFR ( Amer) 32 (> 60) L 04/13/17 12: Est GFR (Non-Af Amer) 27 (> 60) L 04/13/17 12:19 Glucose 303 mg/dL (70-99) H 04/13/17 12:19 POC Glucose 318 (58-89) H 04/13/17 15:47 Calculated Osmolality 311 (280-300) H 04/13/17 12:19 Lactic Acid 6.6 mmol/L (0.5-2.2) H* 04/13/17 16:11 Calcium 11.4 mg/dL (8.6-10.8) H 04/13/17 12:19 Phosphorus 4.9 mg/dL (2.3-4.7) H 04/13/17 12:19 Alkaline Phosphatase 145 Units/L (38-126) H 04/13/17 12:19 Serum Total Protein 9.1 g/dL (6.0-8.3) H 04/13/17 12: Globulin 5.4 g/dL (2.4-3.5) H 04/13/17 12:19 Albumin/Globulin Ratio 0.7 (1.1-2.2) L 04/13/17 12: Ur Specimen Adequacy See below A 04/13/17: Ur Specific [place] 1.027 (1.010-1.025) H 04/13/17 12:55 Urine Protein >=300 mg/dL (Neg-Trace) H 04/13/17 12:55 Urine Glucose (UA) >=1000 mg/dL (Normal) H 04/13/17 12:55 Urine Blood Large (Negative) H 04/13/17 12:55 Urine Microscopic RBC TNTC per hpf (0-3) H 04/13/17 12:55 Urine Microscopic WBC 5-15 per hpf (0-3) H 04/13/17 12:55 Ur Squamous Epith Cells Many per lpf (None-Few) H 04/13/17 12:55 Urine Bacteria Many per hpf (None-Few) H 04/13/17 12:55 Granular Casts Few per lpf (None Seen) H 04/13/17 12:55 Acetaminophen 1.0 mcg/mL (10-30) L 04/13/17 12:19
[2017-04-13] MEDS ORDERED: Dextrose Gel 15 GM PO PRN ×2 (16:40)
[2017-04-13] MEDS ORDERED: D5% in Water 1,000 ML IVC PRN (16:40)
[2017-04-13] MEDS ORDERED: *HR* Dextrose 50 % in Water (Syg) 50 ML SYRINGE IVP PRN (16:40)
--- NOTE | 2017-04-13 16:43 | EEG/EMG/Oth Biometrics Report ---
EEG Procedure Report Date of procedure: 04/13/17 EEG Procedure: Routine EEG Procedure Note: STAT EEG ON PT with a new onset of seizures currently intubated and on sedation Technical description: This is a 21 channel digital EEG performed utilizing 10/20 electrode placement system on a patient who is intubated and sedated. And has a predominant waking background consisted that is very low in amplitude without any reactivity to external stimuli. Patient record continued to show this low amplitude, delta Pattern throughout the whole study, without any obvious epileptiform discharges being recorded. During the recording was decreased that did not show any seizure type of activity the patient did not gain complete consciousness and continued to show this very low amplitude pattern to the rest of the study. Hyperventilation could not be performed due to intubation, photic stimulation stimulation did not eleicit any seizure activity. Clinical interpretation: Abnormal electroencephalogram. This EEG seems to be consistent with generalized slowing which is a nonspecific pattern predominantly seen with diffuse cerebral dysfunction and in this case could be related to the use of the medication. No obvious seizure activity recorded during the study . Repeat his study suggested if clinically warranted
[2017-04-13] MEDS: Insulin LISPRO 300 UNITS/3 ML VIAL SQ SCH ×2 (17:12→23:38)
[2017-04-13] MEDS: Ipratropium/Albuterol Neb 3 ML IH SCH ×2 (19:54→22:45)
[2017-04-13] MEDS: Chlorhexidine Rinse 15 ML MOUTHWASH MM SCH (21:25)
[2017-04-13] MEDS: Piperacillin/Tazobactam 3.375 GM in D5% in Water (Mini-Bag+) 100 ML IVPB SCH (23:31)
[2017-04-13] MEDS ORDERED: Sodium Bicarbonate 100 MEQ in 0.45 % Sodium Chloride 1,000 ML IVC SCH (23:45)
[2017-04-14] MEDS ORDERED: Insulin LISPRO 300 UNITS/3 ML VIAL SQ SCH ×2 (00:01→08:00)
[2017-04-14 01:20] LABS: Basophils # 0.1 K/mcL (0.0-0.2); Basophils % 0.4 %; Eosinophils % 0.1 %; Hematocrit 42.4 % (37.5-50.1); Immature Granulocytes % 0.6 % (0-4); Lymphocytes # 1.1 K/mcL (0.6-4.6); Lymphocytes % 9.6 %; Mean Corpuscular HGB Conc 32.3 g/dL (31.6-35.5); Mean Corpuscular Hemoglobin 28.1 pg (28.0-33.3); Mean Corpuscular Volume 87.1 fL (83.0-100.0); Mean Platelet Volume 10.4 fL (9.4-12.4); Monocytes % 8.3 %; Neutrophils # 9.5 K/mcL (1.6-8.9); Platelet Count 203 K/mcL (140-400); Red Blood Count 4.87 M/mcL (4.19-5.50); Red Cell Distribution Width 13.3 % (11.5-14.5)
[2017-04-14 01:25] LABS: Hemoglobin 13.7 g/dL (12.9-16.9)
[2017-04-14 01:35] LABS: Albumin/Globulin Ratio 0.8 (1.1-2.2); Bilirubin,Total 0.3 mg/dL (0.2-1.2); Globulin 3.8 g/dL (2.4-3.5)
[2017-04-14 01:37] LABS: Calcium 8.9 mg/dL (8.6-10.8); Potassium 5.9 mEq/L (3.5-4.5); Total Protein 6.8 g/dL (6.0-8.3)
[2017-04-14] MEDS ORDERED: Insulin Human Regular 100 UNIT in 0.9 % Sodium Chloride 100 ML IVC SCH ×3 (02:30→08:16)
[2017-04-14] MEDS: Lacri-Lube 3.5 GM TUBE BOTH EYES SCH ×5 (03:06→19:59)
[2017-04-14] MEDS: Ipratropium/Albuterol Neb 3 ML IH SCH ×6 (03:38→23:00)
[2017-04-14 03:49] LABS: ABG Base Excess 1 mEq/L (-2 to 3); ABG HCO3 27 mEq/L (21-27); ABG Oxygen Saturation 97 % (95-98); ABG PCO2 46 mmHg (35-45); ABG PH 7.37 pH Units (7.32-7.45); ABG PO2 99 mmHg (85-104); ABG TCO2 28 mEq/L (20-26); Blood Gas Modality PRVC; Blood Gas PEEP 5 cm H2O; Blood Gas Respiration Rate 14; Blood Gas VT 550 cc
[2017-04-14] MEDS: Pantoprazole 40 MG VIAL IVP SCH (05:54)
[2017-04-14] MEDS: *HR* Heparin 5,000 UNIT/ML VIAL SQ SCH (05:54)
[2017-04-14 06:53] LABS: Albumin 2.7 g/dL (3.5-5.0); Albumin/Globulin Ratio 0.7 (1.1-2.2); Bilirubin,Total 0.3 mg/dL (0.2-1.2); Calcium 8.6 mg/dL (8.6-10.8); Globulin 3.7 g/dL (2.4-3.5); Total Protein 6.4 g/dL (6.0-8.3)
[2017-04-14 06:55] LABS: Potassium 4.6 mEq/L (3.5-4.5)
[2017-04-14] MEDS ORDERED: 0.9 % Sodium Chloride 1,000 ML IVC SCH (07:00)
--- NOTE | 2017-04-14 07:51 | Pulmonology Progress Note ---
<Nigel Kaur - Last Filed: 04/14/17 07:48> Date of Encounter: 04/14/17 Time of Encounter: 07:50 Assessment and Plan (1) Sepsis Current Visit: Yes Status: Acute SIRS: HR >100, RR 32, WBC 21. Lactic acid 9.1. Possible sources most likely community/healthcare/aspiration PNA vs left maxillary sinusitis vs UTI vs unknown. Organ involvement includes Kidneys, lungs. - most recent ABG pH 7.37, pCO2 46, pO2 99 HCO3 27 Sat O2 97 - Lactic acid in last 24 hours 9.1 -> 66 -> 3.3 (currently) - Zosyn Day 2 - will attempt CPAP and spontaneous wake trial. current sedation Fentanyl and propofol - closely monitor vitals, and labs Qualifiers: Qualified Code(s): A41.9 - Sepsis, unspecified organism (2) Metabolic acidosis with respiratory acidosis Current Visit: Yes Status: Acute Respiratory Acidosis with Anion Gap Acidosis 2/2 lactic acidosis vs DKA vs infection vs less likely alcohol ingestion. on admission pH 7.11, pCO2 53 pO2 145 HCO3 17 SatO2 98. - last ABG pH 7.29, CO2 47.5 pO2 235 HCO3 22.6 SpO2 99 Lactic acid 3.3. Anion Gap 9. - IVF switched to lactated ringers. Allow K+ to stay on the higher end of normal in case of DKA and further acidosis. Remain on IV Insulin for glucose. - continue mech vent for respiratory acidosis - daily attempts of SAT and CPAP (3) Tonic clonic seizures Current Visit: Yes Status: Acute 3 witnessed tonic clonic seizure on day of admission, with no previous history. Hx of CVA 1 month ago. - currently IV keppra + propofol - consult to neurology, will get MRI when extubated - EEG - abnormal but non-specific (4) Acute respiratory failure with hypercapnia Current Visit: Yes Status: Acute Patient was intubated after having seizure in ED. CXR - left lower lobe opacities. currently sedated and intubated. Most recent ABG pH 7.29 CO2 47.5 PO2 235 HCO3 22.6 SpO2 99 Lac 6.6. Patient has smoking history - currently on mech vent, continue daily advancement trials - continue abx - continue duoneb (5) Acute kidney injury Current Visit: Yes Status: Acute Cr on admission 2.51, baseline 1.68 - Cr today 2.49 - continue fluid resuscitation - will closely monitor Cr (6) Lactic acidosis Current Visit: Yes Status: Acute Lactic Acidosis 9.1 on admission, repeat 6.6 - Lactic acid currently 3.3 - will closely follow until <2.0 (7) DVT prophylaxis Current Visit: Yes Status: Acute due to possible procedure tomorrow, will hold heparin until further decision. - mech prophylaxis Subjective Principal diagnosis: Seizure of unknown origin Interval history: Mr. Squires is a 56 year old male intubated in the ED after having a tonic clonic seizure in the ED hx includes 2x witnessed tonic clonic seizures [facility] earlier today w/ no previous seizure history prior to today, CVA-occipital tempral infarction approximately 1 month ago. PMx diabetes , and CAD. Patient is currently intubated and sedated. No events overnight. Objective PUL Vital signs: Last Vital Signs Temp 98.4 F 04/14/17 07:30 Pulse 82 04/14/17 06:00 Resp 14 04/14/17 06:00 BP 107/69 04/14/17 06:00 Pulse Ox 97 04/14/17 06:00 General appearance: asleep Eyes: nonicteric Effort: other (mech ventilated) Auscultation: bilateral: clear Cardiovascular: regular rate and rhythm Gastrointestinal: hypoactive bowel sounds, other (patients abdomen is distended , with very minute bowel sounds) Integumentary: normal Extremities: no cyanosis, no edema, no clubbing, pulses normal, other (1-2 second capillary refill on 3rd digit UE ) unable to assess due to mental status Ventilator Settings Ventilator Settings: Ventilator Settings, Last 8 Hours Ventilator Mode VC+ Ventilator Mode VC+ Ventilator Mode VC+ Ventilator Mode VC+ Ventilator Mode VC+ Ventilator Mode VC+ Ventilator Mode VC+ Ventilator Mode VC+ Ventilator Mode VC+ Ventilator Mode VC+ Ventilator Tidal Volume 550 Setting Ventilator Tidal Volume 550 Setting Ventilator Tidal Volume 550 Setting Ventilator Tidal Volume 550 Setting Ventilator Tidal Volume 550 Setting Ventilator Tidal Volume 550 Setting Ventilator Tidal Volume 550 Setting Ventilator Tidal Volume 550 Setting Ventilator Tidal Volume 550 Setting Ventilator Tidal Volume 550 Setting Ventilator Respiratory Rate 14 Setting Ventilator Respiratory Rate 14 Setting Ventilator Respiratory Rate 14 Setting Ventilator Respiratory Rate 14 Setting Ventilator Respiratory Rate 14 Setting Ventilator Respiratory Rate 14 Setting Ventilator Respiratory Rate 14 Setting Ventilator Respiratory Rate 14 Setting Ventilator Respiratory Rate 14 Setting Ventilator Respiratory Rate 14 Setting Actual Respiratory Rate 14 Actual Respiratory Rate 16 Actual Respiratory Rate 16 Actual Respiratory Rate 15 Actual Respiratory Rate 15 Actual Respiratory Rate 19 Actual Respiratory Rate 15 Actual Respiratory Rate 19 Actual Respiratory Rate 19 Positive End Expiratory 5 Pressure Positive End Expiratory 5 Pressure Positive End Expiratory 5 Pressure Positive End Expiratory 5 Pressure Positive End Expiratory 5 Pressure Positive End Expiratory 5 Pressure Positive End Expiratory 5 Pressure Positive End Expiratory 5 Pressure Positive End Expiratory 5 Pressure Positive End Expiratory 5 Pressure Peak Inspiratory Airway 24 Pressure Peak Inspiratory Airway 22 Pressure Peak Inspiratory Airway 22 Pressure Peak Inspiratory Airway 21 Pressure Peak Inspiratory Airway 22 Pressure Peak Inspiratory Airway 19 Pressure Peak Inspiratory Airway 22 Pressure Peak Inspiratory Airway 19 Pressure Peak Inspiratory Airway 19 Pressure Results - Laboratory Findings CBC and BMP: 04/14/17 01:14 04/14/17 06:30 ABG ABG pH 7.37 pH Units (7.32-7.45) 04/14/17 03:46 ABG pCO2 46 mmHg (35-45) H 04/14/17 03:46 ABG pO2 99 mmHg (85-104) 04/14/17 03:46 ABG O2 Saturation 97 % (95-98) 04/14/17 03:46 Abnormal lab findings: Abnormal lab results WBC 11.8 K/mcL (4.3-11.1) H 04/14/17 01:14 Neutrophils # 9.5 K/mcL (1.6-8.9) H 04/14/17 01:14 ABG pCO2 46 mmHg (35-45) H 04/14/17 03:46 ABG Total CO2 28 mEq/L (20-26) H 04/14/17 03:46 Lactate 3.3 mmol/L (0.7-2.1) H 04/13/17 15:50 Potassium 4.6 mEq/L (3.5-4.5) H D 04/14/17 06:30 BUN 42 mg/dL (8-26) H 04/14/17 06:30 Creatinine 2.49 mg/dL (0.72-1.25) H 04/14/17 06:30 Est GFR ( Amer) 32 (> 60) L 04/14/17 06:30 Est GFR (Non-Af Amer) 27 (> 60) L 04/14/17 06:30 Glucose 209 mg/dL (70-99) H 04/14/17 06:30 POC Glucose 179 (58-89) H 04/14/17 07:29 Calculated Osmolality 309 (280-300) H 04/14/17 06:30 Lactic Acid 3.3 mmol/L (0.5-2.2) H 04/14/17 01:14 Phosphorus 4.9 mg/dL (2.3-4.7) H 04/13/17 12:19 AST 43 Units/L (5-34) H 04/14/17 06:30 Troponin I 0.83 ng/mL (0-0.03) H* 04/14/17 01:14 Albumin 2.7 g/dL (3.5-5.0) L 04/14/17 06:30 Globulin 3.7 g/dL (2.4-3.5) H 04/14/17 06:30 Albumin/Globulin Ratio 0.7 (1.1-2.2) L 04/14/17 06:30 Ur Specimen Adequacy See below A 04/13/17 12:55 Ur Specific [place] 1.027 (1.010-1.025) H 04/13/17 12:55 Urine Protein >=300 mg/dL (Neg-Trace) H 04/13/17 12:55 Urine Glucose (UA) >=1000 mg/dL (Normal) H 04/13/17 12:55 Urine Blood Large (Negative) H 04/13/17 12:55 Urine Microscopic RBC TNTC per hpf (0-3) H 04/13/17 12:55 Urine Microscopic WBC 5-15 per hpf (0-3) H 04/13/17 12:55 Ur Squamous Epith Cells Many per lpf (None-Few) H 04/13/17 12:55 Urine Bacteria Many per hpf (None-Few) H 04/13/17 12:55 Granular Casts Few per lpf (None Seen) H 04/13/17 12:55 Acetaminophen 1.0 mcg/mL (10-30) L 04/13/17 12:19 - Clinical Findings Intake & Output: Intake & Output 04/13/17 04/13/17 04/14/17 15:59 23:59 07:59 Intake Total 1300 / 1578 1728 / 1728 1125 / 1125 Output Total 700 / 700 300 / 300 850 / 850 Balance 600 / 878 1428 / 1428 275 / 275 Weight 101.1 kg Consult Discharge Plan - Plan [facility]errals: [facility] [Primary Care Provider[facility] - <Andrew Marion M - Last Filed: 04/14/17 15:29> Date of Encounter: 04/14/17 Objective PUL Vital signs: Last Vital Signs Temp 98.4 F 04/14/17 07:30 Pulse 90 04/14/17 09:00 Resp 22 04/14/17 09:00 BP 113/67 04/14/17 09:00 Pulse Ox 100 04/14/17 07:53 Ventilator Settings Ventilator Settings: Ventilator Settings, Last 8 Hours Ventilator Mode VC+ Ventilator Mode VC+ Ventilator Mode VC+ Ventilator Mode VC+ Ventilator Mode VC+ Ventilator Mode VC+ Ventilator Mode VC+ Ventilator Mode VC+ Ventilator Mode VC+ Ventilator Mode VC+ Ventilator Mode VC+ Ventilator Tidal Volume 550 Setting Ventilator Tidal Volume 550 Setting Ventilator Tidal Volume 550 Setting Ventilator Tidal Volume 550 Setting Ventilator Tidal Volume 550 Setting Ventilator Tidal Volume 550 Setting Ventilator Tidal Volume 550 Setting Ventilator Tidal Volume 550 Setting Ventilator Tidal Volume 550 Setting Ventilator Tidal Volume 550 Setting Ventilator Tidal Volume 550 Setting Ventilator Respiratory Rate 14 Setting Ventilator Respiratory Rate 14 Setting Ventilator Respiratory Rate 14 Setting Ventilator Respiratory Rate 14 Setting Ventilator Respiratory Rate 14 Setting Ventilator Respiratory Rate 14 Setting Ventilator Respiratory Rate 14 Setting Ventilator Respiratory Rate 14 Setting Ventilator Respiratory Rate 14 Setting Ventilator Respiratory Rate 14 Setting Ventilator Respiratory Rate 14 Setting Actual Respiratory Rate 22 Actual Respiratory Rate 22 Actual Respiratory Rate 16 Actual Respiratory Rate 19 Actual Respiratory Rate 14 Actual Respiratory Rate 16 Actual Respiratory Rate 16 Actual Respiratory Rate 15 Actual Respiratory Rate 15 Actual Respiratory Rate 19 Positive End Expiratory 5 Pressure Positive End Expiratory 5 Pressure Positive End Expiratory 5 Pressure Positive End Expiratory 5 Pressure Positive End Expiratory 5 Pressure Positive End Expiratory 5 Pressure Positive End Expiratory 5 Pressure Positive End Expiratory 5 Pressure Positive End Expiratory 5 Pressure Positive End Expiratory 5 Pressure Positive End Expiratory 5 Pressure Peak Inspiratory Airway 17 Pressure Peak Inspiratory Airway 21 Pressure Peak Inspiratory Airway 22 Pressure Peak Inspiratory Airway 21 Pressure Peak Inspiratory Airway 24 Pressure Peak Inspiratory Airway 22 Pressure Peak Inspiratory Airway 22 Pressure Peak Inspiratory Airway 21 Pressure Peak Inspiratory Airway 22 Pressure Peak Inspiratory Airway 19 Pressure Results - Laboratory Findings CBC and BMP: 04/14/17 01:14 04/14/17 06:30 ABG ABG pH 7.37 pH Units (7.32-7.45) 04/14/17 03:46 ABG pCO2 46 mmHg (35-45) H 04/14/17 03:46 ABG pO2 99 mmHg (85-104) 04/14/17 03:46 ABG O2 Saturation 97 % (95-98) 04/14/17 03:46 Abnormal lab findings: Abnormal lab results WBC 11.8 K/mcL (4.3-11.1) H 04/14/17 01:14 Neutrophils # 9.5 K/mcL (1.6-8.9) H 04/14/17 01:14 ABG pCO2 46 mmHg (35-45) H 04/14/17 03:46 ABG Total CO2 28 mEq/L (20-26) H 04/14/17 03:46 Lactate 3.3 mmol/L (0.7-2.1) H 04/13/17 15:50 Potassium 4.6 mEq/L (3.5-4.5) H D 04/14/17 06:30 BUN 42 mg/dL (8-26) H 04/14/17 06:30 Creatinine 2.49 mg/dL (0.72-1.25) H 04/14/17 06:30 Est GFR ( Amer) 32 (> 60) L 04/14/17 06:30 Est GFR (Non-Af Amer) 27 (> 60) L 04/14/17 06:30 Glucose 209 mg/dL (70-99) H 04/14/17 06:30 POC Glucose 150 (58-89) H 04/14/17 09:24 Calculated Osmolality 309 (280-300) H 04/14/17 06:30 Phosphorus 4.9 mg/dL (2.3-4.7) H 04/13/17 12:19 AST 43 Units/L (5-34) H 04/14/17 06:30 Troponin I 0.98 ng/mL (0-0.03) H* 04/14/17 06:30 Albumin 2.7 g/dL (3.5-5.0) L 04/14/17 06:30 Globulin 3.7 g/dL (2.4-3.5) H 04/14/17 06:30 Albumin/Globulin Ratio 0.7 (1.1-2.2) L 04/14/17 06:30 Ur Specimen Adequacy See below A 04/13/17 12:55 Ur Specific [place] 1.027 (1.010-1.025) H 04/13/17 12:55 Urine Protein >=300 mg/dL (Neg-Trace) H 04/13/17 12:55 Urine Glucose (UA) >=1000 mg/dL (Normal) H 04/13/17 12:55 Urine Blood Large (Negative) H 04/13/17 12:55 Urine Microscopic RBC TNTC per hpf (0-3) H 04/13/17 12:55 Urine Microscopic WBC 5-15 per hpf (0-3) H 04/13/17 12:55 Ur Squamous Epith Cells Many per lpf (None-Few) H 04/13/17 12:55 Urine Bacteria Many per hpf (None-Few) H 04/13/17 12:55 Granular Casts Few per lpf (None Seen) H 04/13/17 12:55 Acetaminophen 1.0 mcg/mL (10-30) L 04/13/17 12:19 - Clinical Findings Intake & Output: Intake & Output 04/13/17 04/14/17 04/14/17 23:59 07:59 15:59 Intake Total 1728 / 1728 1825 / 1825 Output Total 300 / 300 850 / 850 Balance 1428 / 1428 975 / 975 Weight 101.1 kg - Attending Attestation I examined this patient and my medical decision-making was reviewed with the Resident Physician. I agree with the documented findings, disposition and treatment plan as described except to the extent set forth below. Patient seen and examined. Labs, radiology, chart personally reviewed. Agree with resident's history and physical, assessment, plan with following comments: LOGISTICAL ENGINEER: Patient does not follows commands, patients on sedation and there is no evidence of active seizures clinically. I will start lowering his sedation and continue antiepileptics. Patient was not able to move his right side and pupil change in nonsymmetrical for that reason neurology follow-up was called and patient had MRI with massive stroke. Patient has extremely poor prognosis discussed with the brother at the bedside about the prognosis and CODE STATUS. I recommended his CODE STATUS need to be changed and he will discussed with the rest of the family. Pulmonary: Acceptable oxygenation and ventilation. Will wean off sedation and hope patient will be tolerating CPAP trial. Vent changes was successful of correcting the respiratory acidosis. Cardiovascular: stable GI: Nutrition per dietary and GI prophylaxis per routine Heme: DVT prophylaxis per routine ID: Continue antibiotics and plan to de-escalation Renal; urine out put and renal funtion reviewed. Continue IV fluid and I suspect patient potassium will improve with treating with fluid and improvement in renal function. Endorcine: blood glucose is monitored. I suspect patient has DKA and he will need IV fluid and carefully treat potassium. I will resume his insulin drip. Lines: all lines checked and no evidence of infections Skin: skin care to prevent pressure ulcers per nursing routine care I spent 40 min of Critical Care time with this patient. It involved decision making of high complexity to assess, manipulate, and support vital organ system failure and/or to prevent further life threatening deterioration of the patient' s condition. The time involved in the performance of separately reportable procedures was not counted toward critical care time.
[2017-04-14] MEDS: Ringers Solution, Lactated 1,000 ML IVC SCH ×2 (08:17→16:51)
[2017-04-14] MEDS: Chlorhexidine Rinse 15 ML MOUTHWASH MM SCH ×2 (08:17→19:59)
[2017-04-14] MEDS: Piperacillin/Tazobactam 3.375 GM in D5% in Water (Mini-Bag+) 100 ML IVPB SCH ×2 (08:18→16:38)
--- NOTE | 2017-04-14 09:27 | Electrocardiograph Report ---
[facility] Test Date: 2017-04-13 Pat Name: Alfredo Squires Department: 102 Room: 11 Gender: M Club Manager: : [id number] Requested By: Anmol Villalba Order Number: [id number] Reading MD: Moris Simms MD Measurements Intervals [place] Rate: 114 P: 55 SD: 160 QRS: 70 QRSD: 97 T: 73 QT: 329 QTc: 396 Interpretive Statements SINUS TACHYCARDIA POSSIBLE LEFT ATRIAL ENLARGEMENT [-0.1mV P WAVE IN V1/V2] ABNORMAL RHYTHM ECG Electronically Signed On 04-14-2017 9:25:29 EDT by Moris Simms MD
--- NOTE | 2017-04-14 10:02 | Neurology Progress Note ---
Date of Encounter: 04/14/17 Time of Encounter: 08:15 Assessment and Plan (1) New onset seizure Current Visit: Yes Status: Acute Patient remained intubated, on weaning parameters now. Suggest to continue continue him on Keppra 500 mg twice a day. Check level to keep it therapeutic Patient to continue on seizure precautions. No clinical or lab sign for any LOAN MANAGER infection (2) Recent cerebrovascular accident (CVA) Current Visit: Yes Status: Acute Patient has a recent history of left occipital CVA. He did not have any significant residual deficit particularly no motor deficit as per history CT scan shows some evolution, off the occipital infarct though could be evolution of the old infarct as noted on the CT scan but at the same time there is a possibility that he could have a new infarct as well. 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 At this time I would suggest that we should continue him on antiplatelet therapy with aspirin. need an MRI of his brain, to confirm that indeed if he has a new infarct were not. Continue to monitor his blood pressure keep it on a stable range as well as statin Subjective Principal diagnosis: New onset seizures, h/o stroke Interval history: Patient remained intubated but his binaural sedation since this morning slowly waking up no clinical seizures reported by the staff. EEG was negative for any status yesterday. Objective - Constitutional Vitals: Temp Pulse Resp BP Pulse Ox 98.4 F 90 16 118/68 99 04/14/17 07:30 04/14/17 09:00 04/14/17 09:32 04/14/17 09:32 04/14/17 09:32 - Neurological Exam Motor Examination: Present: other (Limited neurological examination as patient is intubated and on sedation. Pupils are reactive corneals are positive minimal withdrawal to deep pain moving all 4 extremities.) Reflexes: Biceps: 1+, Triceps: 1+, Brachioradialis: 1+, Patella: 1+, Achilles: 1 + Results - Laboratory Findings CBC and BMP: 04/14/17 01:14 04/14/17 06:30 Abnormal lab findings: Abnormal lab results WBC 11.8 K/mcL (4.3-11.1) H 04/14/17 01:14 Neutrophils # 9.5 K/mcL (1.6-8.9) H 04/14/17 01:14 ABG pCO2 46 mmHg (35-45) H 04/14/17 03:46 ABG Total CO2 28 mEq/L (20-26) H 04/14/17 03:46 Lactate 3.3 mmol/L (0.7-2.1) H 04/13/17 15:50 Potassium 4.6 mEq/L (3.5-4.5) H D 04/14/17 06:30 BUN 42 mg/dL (8-26) H 04/14/17 06:30 Creatinine 2.49 mg/dL (0.72-1.25) H 04/14/17 06:30 Est GFR ( Amer) 32 (> 60) L 04/14/17 06:30 Est GFR (Non-Af Amer) 27 (> 60) L 04/14/17 06:30 Glucose 209 mg/dL (70-99) H 04/14/17 06:30 POC Glucose 150 (58-89) H 04/14/17 09:24 Calculated Osmolality 309 (280-300) H 04/14/17 06:30 Phosphorus 4.9 mg/dL (2.3-4.7) H 04/13/17 12:19 AST 43 Units/L (5-34) H 04/14/17 06:30 Troponin I 0.98 ng/mL (0-0.03) H* 04/14/17 06:30 Albumin 2.7 g/dL (3.5-5.0) L 04/14/17 06:30 Globulin 3.7 g/dL (2.4-3.5) H 04/14/17 06:30 Albumin/Globulin Ratio 0.7 (1.1-2.2) L 04/14/17 06:30 Ur Specimen Adequacy See below A 04/13/17 12:55 Ur Specific [place] 1.027 (1.010-1.025) H 04/13/17 12:55 Urine Protein >=300 mg/dL (Neg-Trace) H 04/13/17 12:55 Urine Glucose (UA) >=1000 mg/dL (Normal) H 04/13/17 12:55 Urine Blood Large (Negative) H 04/13/17 12:55 Urine Microscopic RBC TNTC per hpf (0-3) H 04/13/17 12:55 Urine Microscopic WBC 5-15 per hpf (0-3) H 04/13/17 12:55 Ur Squamous Epith Cells Many per lpf (None-Few) H 04/13/17 12:55 Urine Bacteria Many per hpf (None-Few) H 04/13/17 12:55 Granular Casts Few per lpf (None Seen) H 04/13/17 12:55 Acetaminophen 1.0 mcg/mL (10-30) L 04/13/17 12:19 Consult Discharge Plan - Plan [facility]errals: [facility] [Primary Care Provider] -
[2017-04-14] MEDS ORDERED: *HR* LORazepam 2 MG/ML VIAL IVP ONE (13:14)
--- NOTE | 2017-04-14 15:24 | Neurology Progress Note ---
Date of Encounter: 04/14/17 Time of Encounter: 15:15 Assessment and Plan (1) Acute occipital temporal infarction Current Visit: No Status: Acute Pt. has experienced an extension of the previous left occipital infarct. 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 This is likely due to his terminal operator risk factors including poorly controlled DM, HTN and HLD. At this juncture the focus should be on minimizing further brain injury and maximizing cerebral blood flow. He is not a candidate for thrombolitics or any other acute intervention. Maintain ASA 81mg QD, allow for permissive HTN over the next 2 days. Minimize glucose in IV's. Stroke protocol nursing orders. The acute seizures were likely due to the acute infarct. Maintain Keppra. 500mg BID. I did discuss the case with his brother as well. Prognosis terminal operator is poor. Will give mannitol 75g IVP to prevent cerebral edema. Critical care time spent with this patient including chart review, examination, and reviewing prior scans was 60min. Subjective Principal diagnosis: New onset seizures, h/o stroke Interval history: Chart reviewed, pt seen and examined, case discussed with ICU attending, resident and nursing staff, stat MRI reviewed. I was called by ICU resident to inform me of declining status of patient, particularly with regard to encephalopathy and right hemiparesis. Pt was admitted with new onset of seizures. Apparently he had 3 GTC seizures. He was admitted in March 2017 for acute left occipital infarct. At that time MRA brain revealed severely attenuated left vertebral artery as well as left POWDERED SUGAR SUPERVISOR. The cerebral circulation in general did not appear healthy then. No further seizures have been reported. He has been loaded on Keppra. Stat MRA today reveals significant extension of the left occipital infarct. The entire left POWDERED SUGAR SUPERVISOR circulation is involved including the left occipital, and parietal lobes as well as parts of the basal ganglia. A small bit of infarct is present in the left medulla and left cerebellar peduncle. No mass effect or cerebellar infarct are present. No evidence of herniation syndrome present. Objective - Constitutional Vitals: Temp Pulse Resp BP Pulse Ox 99 F 100 21 131/88 100 04/14/17 11:09 04/14/17 15:00 04/14/17 15:00 04/14/17 15:00 04/14/17 15:00 - Neurological Exam Motor Examination: Present: other (Limited neurological examination as patient is intubated and on sedation. Pupils are reactive corneals are positive minimal withdrawal to deep pain moving all 4 extremities.) Mental Status Examination: Present: does not follow commands, stupor, agitated, opens eyes to noxious stimulation Additional comments: Cerebral functions- Pt. is obtunded, will open eyes to voice, but doesn't make eye contact or follow commands. He does appear to reach for things with his left arm. Grunting and groaning at times, agitated. CN- NISREEN, right hemianopsia, right facial droop, sustaining respirations. Motor, developing spastic right hemiparesis, no inoluntary activity. Freely moves left arm and leg. - VTE Documentation of Mechanical Device: Intermittent pneumatic compression device Results - Laboratory Findings CBC and BMP: 04/14/17 01:14 04/14/17 06:30 Abnormal lab findings: Abnormal lab results WBC 11.8 K/mcL (4.3-11.1) H 04/14/17 01:14 Neutrophils # 9.5 K/mcL (1.6-8.9) H 04/14/17 01:14 ABG pCO2 46 mmHg (35-45) H 04/14/17 03:46 ABG Total CO2 28 mEq/L (20-26) H 04/14/17 03:46 Lactate 3.3 mmol/L (0.7-2.1) H 04/13/17 15:50 Potassium 4.6 mEq/L (3.5-4.5) H D 04/14/17 06:30 BUN 42 mg/dL (8-26) H 04/14/17 06:30 Creatinine 2.49 mg/dL (0.72-1.25) H 04/14/17 06:30 Est GFR ( Amer) 32 (> 60) L 04/14/17 06:30 Est GFR (Non-Af Amer) 27 (> 60) L 04/14/17 06:30 Glucose 209 mg/dL (70-99) H 04/14/17 06:30 POC Glucose 140 (58-89) H 04/14/17 14:30 Calculated Osmolality 309 (280-300) H 04/14/17 06:30 Phosphorus 4.9 mg/dL (2.3-4.7) H 04/13/17 12:19 AST 43 Units/L (5-34) H 04/14/17 06:30 Troponin I 0.98 ng/mL (0-0.03) H* 04/14/17 06:30 Albumin 2.7 g/dL (3.5-5.0) L 04/14/17 06:30 Globulin 3.7 g/dL (2.4-3.5) H 04/14/17 06:30 Albumin/Globulin Ratio 0.7 (1.1-2.2) L 04/14/17 06:30 Ur Specimen Adequacy See below A 04/13/17 12:55 Ur Specific [place] 1.027 (1.010-1.025) H 04/13/17 12:55 Urine Protein >=300 mg/dL (Neg-Trace) H 04/13/17 12:55 Urine Glucose (UA) >=1000 mg/dL (Normal) H 04/13/17 12:55 Urine Blood Large (Negative) H 04/13/17 12:55 Urine Microscopic RBC TNTC per hpf (0-3) H 04/13/17 12:55 Urine Microscopic WBC 5-15 per hpf (0-3) H 04/13/17 12:55 Ur Squamous Epith Cells Many per lpf (None-Few) H 04/13/17 12:55 Urine Bacteria Many per hpf (None-Few) H 04/13/17 12:55 Granular Casts Few per lpf (None Seen) H 04/13/17 12:55 Acetaminophen 1.0 mcg/mL (10-30) L 04/13/17 12:19 Consult Discharge Plan - Plan [facility]errals: [facility] [Primary Care Provider] -
[2017-04-14] MEDS ORDERED: MANNITOL IVC SCH (15:45)
--- NOTE | 2017-04-14 16:10 | Palliative - Consult Note ---
Date of Encounter: 04/14/17 Time of Encounter: 15:40 - Assessment and Plan (1) Acute renal failure Current Visit: Yes Status: Acute Assessment and plan: Being managed by hospitalist team, plan per hospitalist team, ICU team Qualifiers: Acute renal failure type: unspecified Qualified Code(s): N17.9 - Acute kidney failure, unspecified (2) Goals of care, counseling/discussion Current Visit: Yes Status: Acute Assessment and plan: Discussion the patient's brother. Patient and patient's brother had had many discussions in the past over the years. Patient's brother believes that patient would not wish to have sedation given the fact he has had a massive stroke. Patient patient's nephew (the brother's son) are quite close and the patient has told the patient's brother he were ever not able to make decisions for himself he would want a few to make the decisions for him. Since brother has discussed the case with his son, well as with their father everyone is in agreement that the patient would not want to have resuscitation in the event of cardiac arrest or come stances of a massive CVA. I believe that the brother is speaking in the patient's best interest. I believe that patient would select his nephew to be his power of manager change were he able to do so. May be medical power of manager change paperwork filled out to that degree from the [place], however it is not in the paperwork we have currently. Brother will check on this. However at this time I recommend that we all of their wishes and make the patient DO NOT RESUSCITATE comfort care arrest without intubate. Been put in by the ICU team. With regards to goals of care patient was at [facility] recovering from a previous CVA. If the patient survives the acute period and has no signs of recovery overall the plan will be for hospice care. Watch over the course the weekend and see. (3) Acute respiratory failure with hypercapnia Current Visit: Yes Status: Acute Assessment and plan: The patient has self extubated and is now off the ventilator. He is now DNR CCA DNI will not be reintubated. (4) Altered mental status Current Visit: Yes Status: Acute Assessment and plan: Leave this to be secondary to the CVA. Is being followed by neurology plan per ICU and neurology. Qualifiers: Altered mental status type: unspecified Qualified Code(s): R41.82 - Altered mental status, unspecified (5) New onset seizure Current Visit: Yes Status: Acute Assessment and plan: Probably secondary to stroke. Continue recommendations by neurology for Keppra plan per neurology and ICU team (6) Stroke Current Visit: No Status: Suspected Assessment and plan: Continue treatment plan outlined by neurology, plan per neurology and ICU team. We will follow. Qualifiers: CVA mechanism: other Qualified Code(s): I63.8 - Other cerebral infarction Palliative-CN HPI - Data of Consult Patient: new to practice Requesting Physician: Andrew Marion MD [facility] Care Provider[facility] - Consult Narrative Palliative Care/Comfort Measures: Palliative care History of present illness: Mr. Squires is a 56 year old male With a history of recent CVA presented with new onset seizure disorder he was intubated in the emergency department her having 2 witnessed tonic-clonic seizures at his long term. Her because of previous CVA. CVA had occurred approximately a month ago. She was also found to be in respiratory metabolic acidosis with a lactic acidosis of 9.0. He has a history diabetes and coronary artery disease. Extubated earlier today. Found to have a massive deficit movement on the right hand side and repeat MRI shows massive extension of the infarct noted on the 12th. Infarct on the 12th was felt to be subacute. CVA that he had a month ago had left him with few residual deficits other than some confusion and occasional blurry vision. He T scan as already noted showed potentially evolution of the stroke was felt to be late subacute. On MRI large left MATERIAL LISTER territory infarction involving the left occipital lobe in the posterior aspect of the left parietal lobe postero-medialis Edell aspect of the left temporal lobe and the left thalamus is also involvement in the left basal ganglia as well as the dominique auctions noted in the right temporal lobe and left occipital lobe necrosis urology consultation they feel the acute seizures are likely due to an acute infarct. They have recommended maintaining Keppraas superintendent terminal is extremely poor be given the next couple days to see how much she were covers. In the meantime palliative care was consulted regarding CODE STATUS. See the assessment and plan. CC: Andrew Marion MD Altered mental status, seizures Past Med Surg Social Fam HX - Past Medical History Medical history: diabetes, hypertension Psychiatric history: depression - Past Surgical History Surgical History: coronary bypass (CABG) - Social History Smoking Status: Former smoker Smokeless Tobacco Status: No Alcohol use: none Drug use: none - Family History Mother Living Status: Father Living Status: Medications and Allergies Acetaminophen [Tylenol] 1,000 mg PO BID PRN 03/14/17 [History] Aspirin Enteric Coated [Aspirin EC] 81 mg PO DAILY 03/14/17 [History] Atorvastatin Calcium [Lipitor] 80 mg PO HS 03/14/17 [History] Benzonatate [Tessalon] 100 mg PO Q8H PRN 03/14/17 [History] Cholecalciferol (D-3) [Vitamin D] 2,000 unit PO DAILY 03/14/17 [History] Clopidogrel [Plavix] 75 mg PO DAILY 03/14/17 [History] Docusate [Colace] 200 mg PO DAILY PRN 03/14/17 [History] Finasteride [Proscar] 5 mg PO DAILY 03/14/17 [History] Gabapentin [Neurontin] 300 mg PO TID 03/14/17 [History] Insulin NPH Human Isophane [Novolin N] 30 unit SQ QAM 03/14/17 [History] Insulin NPH Human Isophane [Novolin N] 35 unit SQ QPM 03/14/17 [History] Lisinopril [Zestril] 20 mg PO DAILY 03/14/17 [History] Metoprolol [Lopressor] 125 mg PO BID 03/14/17 [History] Nitroglycerin [Nitrostat] 0.4 mg SL Q5M PRN 03/14/17 [History] Propylene Glycol/Peg 400 [Systane 0.3-0.4% Eye Drops] 1 drop BOTH EYES QID 03/14 [History] glipiZIDE [Glipizide] 20 mg PO BID 03/14/17 [History] Insulin LISPRO [HumaLOG] 0 - 12 units SQ TID PRN 04/13/17 [History] 3 Allergy/AdvReac Type Severity Reaction Status Date / Time Iodinated Contrast- Oral and Allergy Rash Verified 03/14/17 15:53 IV Dye ROS unobtainable: due to mental status Palliative Care-Exam - Constitutional Vitals: Temp Pulse Resp BP Pulse Ox 99 F 100 16 131/88 99 04/14/17 11:09 04/14/17 15:00 04/14/17 15:22 04/14/17 15:00 04/14/17 15:22 General appearance: Present: no acute distress - Head Head Exam: Present: atraumatic, normal inspection - Eye Eye exam: Present: normal appearance - ENT ENT exam: Present: mucous membranes moist - Neck Neck exam: Present: normal inspection - Respiratory Respiratory exam: Present: decreased breath sounds - Cardiovascular Cardiovascular exam: Present: RRR - GI/Abdominal Exam GI/Abdominal exam: Present: normal bowel sounds, soft. Absent: tenderness - Catheter Type: Urethral (Storey) - Extremities Exam Extremities exam: Present: normal inspection. Absent: pedal edema, tenderness - Neurological Exam Neurological exam: Present: altered, motor sensory deficit, facial droop, speech deficit. Absent: oriented X3, no focal deficits - Psychiatric Psychiatric exam: Absent: agitated, anxious - Skin Skin exam: Present: dry, warm Internal Medicine - CN: Reslt - Labs CBC & Chem 7: 04/14/17 01:14 04/14/17 06:30 Labs: Short CBC 04/14/17 Range/Units 01:14 WBC 11.8 H (4.3-11.1) K/mcL Hgb 13.7 D (12.9-16.9) g/dL Hct 42.4 (37.5-50.1) % Plt Count 203 (140-400) K/mcL Neutrophils # 9.5 H (1.6-8.9) K/mcL BMP 04/14/17 04/14/17 01:14 06:30 Sodium 137 141 Potassium 5.9 H D 4.6 H D Chloride 103 106 Carbon Dioxide 25 D 26 BUN 44 H 42 H Creatinine 2.76 H 2.49 H Glucose 420 H 209 H Calcium 8.9 D 8.6 Cardiac Enzymes 04/13/17 04/14/17 04/14/17 Range/Units 16:11 01:14 06:30 Troponin I 0.08 H* 0.83 H* 0.98 H* (0-0.03) ng/mL Liver Function 04/14/17 04/14/17 Range/Units 01:14 06:30 Total Bilirubin 0.3 0.3 (0.2-1.2) mg/dL AST 18 43 H (5-34) Units/L ALT 11 11 (0-55) Units/L Alkaline Phosphatase 109 93 (38-126) Units/L Albumin 3.0 L 2.7 L (3.5-5.0) g/dL - ABG Interpretation ABG results: ABG ABG pH 7.37 pH Units (7.32-7.45) 04/14/17 03:46 ABG pCO2 46 mmHg (35-45) H 04/14/17 03:46 ABG pO2 99 mmHg (85-104) 04/14/17 03:46 ABG O2 Saturation 97 % (95-98) 04/14/17 03:46 - Impressions Impressions Chest X-Ray 04/14/17 04:00 IMPRESSION: Stable bilateral interstitial changes suggesting pulmonary edema versus atypical pneumonia. Stable bilateral trace pleural effusions. D/ / 04/14/2017 07:19:44 Solomon Purvis MD / rubio Interpreting Provider: Solomon Purvis MD Brain MRI 04/14/17 12:05 IMPRESSION: Large acute left MATERIAL LISTER territory infarction involving the left occipital lobe, posterior aspect of the left parietal lobe, posteromedial aspect of the left temporal lobe and the left thalamus. Small acute infarction in the left basal ganglia. Small acute infarctions in the right aspect of the dominique. Small old infarctions in the right temporal lobe and left occipital lobe with laminar necrosis. Sinus mucosal disease and mastoid effusions. Soft tissue prominence of the posterior nasal pharynx, nonspecific, stable since March 14, 2017. The results were called by Dr. Gerry Kennedy MD to nurse Ms. Byrd on 04/14/2017 at 14:15. D/ / Gerry Kennedy MD / Gerry Kennedy MD Interpreting Provider: Gerry Kennedy MD Consult Discharge Plan - Plan [facility]errals: [facility] [Primary Care Provider] - Palliative Quality Palliative Quality: Screen for Code Status: Yes, Screen for Goals of Care: Yes, Screen for Pain: Yes, If Pain Regimen Started, Initiate Bowel Regimen: NA, Screen for Nausea/Vomitting: Yes Code Status: 04/14/17 15:50 Resuscitation Status: Active [RES] Routine Comment: Resuscitation Status: [id number]
[2017-04-14] MEDS ORDERED: MANNITOL IVC ONE (16:15)
[2017-04-14] MEDS ORDERED: *HR* Morphine 2 MG/ML SYRINGE IVP PRN (16:34)
[2017-04-14] MEDS ORDERED: *HR* LORazepam 2 MG/ML VIAL IVP PRN (16:36)
[2017-04-14] MEDS ORDERED: *HR* Dextrose 50 % in Water (Syg) 50 ML SYRINGE IVP PRN (16:57)
[2017-04-14] MEDS ORDERED: D5% in Water 1,000 ML IVC PRN (16:57)
[2017-04-14] MEDS ORDERED: Dextrose Gel 15 GM PO PRN ×2 (16:57)
--- NOTE | 2017-04-14 19:09 | Electrocardiograph Report ---
[place] [id number] Test Date: 2017-04-14 Pat Name: Alfredo Squires Department: 109 Room: 11 Gender: M Research Support Specialist: : [id number] Requested By: Haile Diaz Order Number: [id number] Reading MD: Ellen Block Measurements Intervals [place] Rate: 73 P: 48 WA: 160 QRS: 15 QRSD: 97 T: 117 QT: 415 QTc: 442 Interpretive Statements SINUS RHYTHM NONSPECIFIC T-WAVE ABNORMALITY Electronically Signed On 04-14-2017 19:08:13 EDT by Ellen Block
[2017-04-14] MEDS: Insulin LISPRO 300 UNITS/3 ML VIAL SQ SCH (20:11)
[2017-04-14] MEDS ORDERED: Insulin LISPRO 300 UNITS/3 ML VIAL SQ ONE (23:56)
[2017-04-15] MEDS: Piperacillin/Tazobactam 3.375 GM in D5% in Water (Mini-Bag+) 100 ML IVPB SCH ×3 (00:27→17:18)
[2017-04-15] MEDS: Ringers Solution, Lactated 1,000 ML IVC SCH ×4 (00:28→18:12)
[2017-04-15] MEDS: Lacri-Lube 3.5 GM TUBE BOTH EYES SCH ×3 (00:28→08:33)
[2017-04-15] MEDS: Insulin LISPRO 300 UNITS/3 ML VIAL SQ SCH ×6 (00:38→20:59)
[2017-04-15] MEDS: Ipratropium/Albuterol Neb 3 ML IH SCH ×6 (04:00→23:00)
[2017-04-15 05:49] LABS: Basophils % 0.3 %; Eosinophils % 0.1 %; Hematocrit 40.2 % (37.5-50.1); Hemoglobin 12.9 g/dL (12.9-16.9); Immature Granulocytes % 0.6 % (0-4); Lymphocytes # 1.4 K/mcL (0.6-4.6); Lymphocytes % 10.9 %; Mean Corpuscular HGB Conc 32.1 g/dL (31.6-35.5); Mean Corpuscular Hemoglobin 28.2 pg (28.0-33.3); Mean Platelet Volume 10.6 fL (9.4-12.4); Monocytes # 1.1 K/mcL (0.0-1.3); Monocytes % 9.2 %; Neutrophils # 9.8 K/mcL (1.6-8.9); Platelet Count 169 K/mcL (140-400); Red Blood Count 4.57 M/mcL (4.19-5.50); Red Cell Distribution Width 13.3 % (11.5-14.5); Segmented Neutrophils % 78.9 %
[2017-04-15 06:12] LABS: Albumin 2.7 g/dL (3.5-5.0); Albumin/Globulin Ratio 0.7 (1.1-2.2); Bilirubin,Total 0.5 mg/dL (0.2-1.2); Calcium 9.3 mg/dL (8.6-10.8); Globulin 4.1 g/dL (2.4-3.5); Potassium 4.5 mEq/L (3.5-4.5); Total Protein 6.8 g/dL (6.0-8.3)
--- NOTE | 2017-04-15 07:57 | Palliative Progress Note ---
Date of Encounter: 04/15/17 Time of Encounter: 07:10 - Assessment and plan (1) Acute renal failure Current Visit: Yes Status: Acute Assessment and plan: BUN and creatinine are both improving. Plan per hospitalist, ICU team Qualifiers: Acute renal failure type: unspecified Qualified Code(s): N17.9 - Acute kidney failure, unspecified (2) Goals of care, counseling/discussion Current Visit: Yes Status: Acute Assessment and plan: DNR A, DNI. Current plan is to give the patient several days to see he might be able to accomplish. Then Decide long-term treatment (3) Acute respiratory failure with hypercapnia Current Visit: Yes Status: Acute Assessment and plan: Doing well off ventilator at this time Plan per hospitalist, ICU team (4) Altered mental status Current Visit: Yes Status: Acute Assessment and plan: Secondary to CVA, continue to watch Plan per hospitalist, ICU team Qualifiers: Altered mental status type: unspecified Qualified Code(s): R41.82 - Altered mental status, unspecified (5) New onset seizure Current Visit: Yes Status: Acute Assessment and plan: No further seizures noted. Patient is being followed by neurology (6) Stroke Current Visit: No Status: Suspected Assessment and plan: followed by neurology Plan per hospitalist, ICU team and neurology Qualifiers: CVA mechanism: other Qualified Code(s): I63.8 - Other cerebral infarction - Time Spent With Patient Total time spent is greater than 50% in coordination of care (as documented) at patient's floor/unit and/or counseling patient: - Subjective Interval history: Patient noted yesterday have very very large stroke. He opted for DNR CCA, DNI status tingling treatment for the stroke to see how much recovery he might be able to calm place. Neurology is following. She had no events last night. Appears comfortable at this time. And is responsive voice. - Constitutional Vitals: Abnormal lab results WBC 12.4 K/mcL (4.3-11.1) H 04/15/17 05:30 Neutrophils # 9.8 K/mcL (1.6-8.9) H 04/15/17 05:30 ABG pCO2 46 mmHg (35-45) H 04/14/17 03:46 ABG Total CO2 28 mEq/L (20-26) H 04/14/17 03:46 Lactate 3.3 mmol/L (0.7-2.1) H 04/13/17 15:50 Creatinine 2.05 mg/dL (0.72-1.25) H 04/15/17 05:30 Est GFR ( Amer) 41 (> 60) L 04/15/17 05:30 Est GFR (Non-Af Amer) 34 (> 60) L 04/15/17 05:30 Glucose 187 mg/dL (70-99) H 04/15/17 05:30 POC Glucose 154 (58-89) H 04/15/17 04:04 Calculated Osmolality 303 (280-300) H 04/15/17 05:30 Phosphorus 4.9 mg/dL (2.3-4.7) H 04/13/17 12:19 AST 79 Units/L (5-34) H 04/15/17 05:30 Troponin I 0.98 ng/mL (0-0.03) H* 04/14/17 06:30 Albumin 2.7 g/dL (3.5-5.0) L 04/15/17 05:30 Globulin 4.1 g/dL (2.4-3.5) H 04/15/17 05:30 Albumin/Globulin Ratio 0.7 (1.1-2.2) L 04/15/17 05:30 Ur Specimen Adequacy See below A 04/13/17 12:55 Ur Specific [place] 1.027 (1.010-1.025) H 04/13/17 12:55 Urine Protein >=300 mg/dL (Neg-Trace) H 04/13/17 12:55 Urine Glucose (UA) >=1000 mg/dL (Normal) H 04/13/17 12:55 Urine Blood Large (Negative) H 04/13/17 12:55 Urine Microscopic RBC TNTC per hpf (0-3) H 04/13/17 12:55 Urine Microscopic WBC 5-15 per hpf (0-3) H 04/13/17 12:55 Ur Squamous Epith Cells Many per lpf (None-Few) H 04/13/17 12:55 Urine Bacteria Many per hpf (None-Few) H 04/13/17 12:55 Granular Casts Few per lpf (None Seen) H 04/13/17 12:55 Acetaminophen 1.0 mcg/mL (10-30) L 04/13/17 12:19 General appearance: Present: no acute distress - Head Head exam: Present: atraumatic, normal inspection - ENT ENT exam: Present: mucous membranes moist - Respiratory Respiratory exam: Present: decreased breath sounds - Cardiovascular Cardiovascular exam: Present: RRR, tachycardia - GI/Abdominal GI/Abdominal exam: Present: normal bowel sounds, soft. Absent: tenderness - Extremities Exam Extremities exam: Present: normal inspection. Absent: pedal edema, tenderness - Neurological Exam Neurological exam: Present: altered, motor sensory deficit, speech deficit. Absent: oriented X3, no focal deficits, strengths equal and symetr throughout - Psychiatric Psychiatric exam: Absent: agitated, anxious - Skin Skin exam: Present: dry, warm Palliative Quality Palliative Quality: Screen for Code Status: Yes, Screen for Goals of Care: Yes, Screen for Pain: Yes, If Pain Regimen Started, Initiate Bowel Regimen: NA, Screen for Nausea/Vomitting: Yes Code Status: 04/14/17 15:50 Resuscitation Status: Active [RES] Routine Comment: Resuscitation Status: [id number] - Labs CBC & Chem 7: 04/15/17 05:30 04/15/17 05:30 Labs: Laboratory Results - last 24 hr 04/14/17 04/14/17 04/14/17 06:30 09:00 09:24 WBC RBC Hgb Hct MCV MCH MCHC RDW Plt Count MPV Immature Gran % Seg Neutrophils % Lymphocytes % Monocytes % Eosinophils % Basophils % Neutrophils # Lymphocytes # Monocytes # Eosinophils # Basophils # Sodium Potassium Chloride Carbon Dioxide BUN Creatinine Est GFR ( Amer) Est GFR (Non-Af Amer) BUN/Creatinine Ratio Glucose POC Glucose 150 H Calculated Osmolality Lactic Acid 2.2 Calcium Total Bilirubin AST ALT Alkaline Phosphatase Troponin I 0.98 H* Serum Total Protein Albumin Globulin Albumin/Globulin Ratio 04/14/17 04/14/17 04/14/17 11:14 14:30 17:00 WBC RBC Hgb Hct MCV MCH MCHC RDW Plt Count MPV Immature Gran % Seg Neutrophils % Lymphocytes % Monocytes % Eosinophils % Basophils % Neutrophils # Lymphocytes # Monocytes # Eosinophils # Basophils # Sodium Potassium Chloride Carbon Dioxide BUN Creatinine Est GFR ( Amer) Est GFR (Non-Af Amer) BUN/Creatinine Ratio Glucose POC Glucose 122 H 140 H 117 H Calculated Osmolality Lactic Acid Calcium Total Bilirubin AST ALT Alkaline Phosphatase Troponin I Serum Total Protein Albumin Globulin Albumin/Globulin Ratio 04/14/17 04/15/17 04/15/17 20:07 00:32 04:04 WBC RBC Hgb Hct MCV MCH MCHC RDW Plt Count MPV Immature Gran % Seg Neutrophils % Lymphocytes % Monocytes % Eosinophils % Basophils % Neutrophils # Lymphocytes # Monocytes # Eosinophils # Basophils # Sodium Potassium Chloride Carbon Dioxide BUN Creatinine Est GFR ( Amer) Est GFR (Non-Af Amer) BUN/Creatinine Ratio Glucose POC Glucose 163 H 175 H 154 H Calculated Osmolality Lactic Acid Calcium Total Bilirubin AST ALT Alkaline Phosphatase Troponin I Serum Total Protein Albumin Globulin Albumin/Globulin Ratio 04/15/17 04/15/17 05:30 05:30 WBC 12.4 H RBC 4.57 Hgb 12.9 Hct 40.2 MCV 88.0 MCH 28.2 MCHC 32.1 RDW 13.3 Plt Count 169 MPV 10.6 Immature Gran % 0.6 Seg Neutrophils % 78.9 Lymphocytes % 10.9 Monocytes % 9.2 Eosinophils % 0.1 Basophils % 0.3 Neutrophils # 9.8 H Lymphocytes # 1.4 Monocytes # 1.1 Eosinophils # 0.0 Basophils # 0.0 Sodium 142 Potassium 4.5 Chloride 107 Carbon Dioxide 26 BUN 25 D Creatinine 2.05 H Est GFR ( Amer) 41 L Est GFR (Non-Af Amer) 34 L BUN/Creatinine Ratio 12 Glucose 187 H POC Glucose Calculated Osmolality 303 H Lactic Acid Calcium 9.3 Total Bilirubin 0.5 AST 79 H ALT 12 Alkaline Phosphatase 90 Troponin I Serum Total Protein 6.8 Albumin 2.7 L Globulin 4.1 H Albumin/Globulin Ratio 0.7 L - Impressions Impressions Chest X-Ray 04/14/17 04:00 IMPRESSION: Stable bilateral interstitial changes suggesting pulmonary edema versus atypical pneumonia. Stable bilateral trace pleural effusions. D/ / 04/14/2017 07:19:44 Solomon Purvis MD / bcarter Interpreting Provider: Solomon Purvis MD Brain MRI 04/14/17 12:05 IMPRESSION: Large acute left YOUTH NUTRITIONAL MONITOR territory infarction involving the left occipital lobe, posterior aspect of the left parietal lobe, posteromedial aspect of the left temporal lobe and the left thalamus. Small acute infarction in the left basal ganglia. Small acute infarctions in the right aspect of the dominique. Small old infarctions in the right temporal lobe and left occipital lobe with laminar necrosis. Sinus mucosal disease and mastoid effusions. Soft tissue prominence of the posterior nasal pharynx, nonspecific, stable since March 14, 2017. The results were called by Dr. Gerry Kennedy MD to nurse Ms. Byrd on 04/14/2017 at 14:15. D/ / Gerry Kennedy MD / Gerry Kennedy MD Interpreting Provider: Gerry Kennedy MD - ABG Interpretation ABG results: ABG ABG pH 7.37 pH Units (7.32-7.45) 04/14/17 03:46 ABG pCO2 46 mmHg (35-45) H 04/14/17 03:46 ABG pO2 99 mmHg (85-104) 04/14/17 03:46 ABG O2 Saturation 97 % (95-98) 04/14/17 03:46 Consult Discharge Plan - Plan Referrals: [facility] [Primary Care Provider] -
[2017-04-15] MEDS: Chlorhexidine Rinse 15 ML MOUTHWASH MM SCH ×2 (08:32→20:36)
[2017-04-15] MEDS ORDERED: Pantoprazole 40 MG VIAL IVP SCH (09:00)
[2017-04-15] MEDS ORDERED: Aspirin 81 MG TAB.CHEW PO SCH (09:00)
--- NOTE | 2017-04-15 09:55 | Pulmonology Progress Note ---
<Nigel Kaur - Last Filed: 04/15/17 09:52> Date of Encounter: 04/15/17 Time of Encounter: 09:53 Assessment and Plan (1) Sepsis Current Visit: Yes Status: Acute SIRS: HR >100, RR 32, WBC 21. Lactic acid 9.1. Possible sources most likely community/healthcare/aspiration PNA vs left maxillary sinusitis vs UTI vs unknown. Organ involvement includes Kidneys, lungs. - most recent ABG pH 7.37, pCO2 46, pO2 99 HCO3 27 Sat O2 97 - Lactic acid in last 24 hours 9.1 -> 66 -> 3.3 -> 2.2 (current) - WBC 12.4 - Code status changed to DNR/DNI/CCA - due to massive stroke, mostly comfort care at this point - transfer to hospital floor - palliative care team following Qualifiers: Qualified Code(s): A41.9 - Sepsis, unspecified organism (2) Metabolic acidosis with respiratory acidosis Current Visit: Yes Status: Acute Respiratory Acidosis with Anion Gap Acidosis 2/2 lactic acidosis vs DKA vs infection vs less likely alcohol ingestion. on admission pH 7.11, pCO2 53 pO2 145 HCO3 17 SatO2 98. - last ABG pH 7.29, CO2 47.5 pO2 235 HCO3 22.6 SpO2 99 Lactic acid 3.3. Anion Gap 9. - IVF switched to lactated ringers. Allow K+ to stay on the higher end of normal in case of DKA and further acidosis. - ct. SSI high (3) Tonic clonic seizures Current Visit: Yes Status: Acute 3 witnessed tonic clonic seizure on day of admission, with no previous history. Hx of CVA 1 month ago. EEG - abnormal but non-specific. - currently IV keppra + propofol - consult to neurology - MRI: Large acute left [employer] territory infarction involving the left occipital lobe, posterior aspect of the left parietal lobe, posteromedial aspect of the left temporal lobe and the left thalamus. Small acute infarction in the left basal ganglia. Small acute infarctions in the right aspect of the dominique. Small old infarctions in the right temporal lobe and left occipital lobe with laminar necrosis. (4) Acute respiratory failure with hypercapnia Current Visit: Yes Status: Acute Patient was intubated after having seizure in ED. CXR - left lower lobe opacities. currently sedated and intubated. Most recent ABG pH 7.29 CO2 47.5 PO2 235 HCO3 22.6 SpO2 99 Lac 6.6. Patient has smoking history - off vent - continue duoneb - comfort care (5) Acute kidney injury Current Visit: Yes Status: Acute Cr on admission 2.51, baseline 1.68 - Cr today 2.05 - continue fluid resuscitation - will closely monitor Cr (6) Lactic acidosis Current Visit: Yes Status: Acute Lactic Acidosis 9.1 on admission, repeat 6.6 - Lactic acid currently 2.2 - will closely follow until <2.0 (7) DVT prophylaxis Current Visit: Yes Status: Acute due to possible procedure tomorrow, will hold heparin until further decision. - mech prophylaxis Subjective Principal diagnosis: New onset seizures, h/o stroke Interval history: Mr. Squires is a 56 year old male intubated in the ED after having a tonic clonic seizure in the ED hx includes 2x witnessed tonic clonic seizures by his nurse at his custodial earlier today w/ no previous seizure history prior to today, CVA-occipital tempral infarction approximately 1 month ago. PMx diabetes , and CAD. Patient yesterday self extubated during sedation weaning. Patient was found to have full right sided paralysis including face, right pupil non-responsive. Found to have massive stroke on MRI. Patient is currently restless, but not agitated. Currently not responding verbally, but withdrawals from pain. Objective PUL Vital signs: Last Vital Signs Temp 101.0 F H 04/15/17 08:15 Pulse 108 04/15/17 08:15 Resp 18 04/15/17 08:15 BP 169/90 04/15/17 08:15 Pulse Ox 94 04/15/17 08:15 General appearance: no acute distress, other (currently restless and moving around. obtunded) Eyes: nonicteric, other (right eye non-response to light, and no reflex) Auscultation: bilateral: clear (difficult to hear due to patient movement during exam) Cardiovascular: regular rate and rhythm Gastrointestinal: absent bowel sounds, soft, other (remains distended, slight improvement since yesterday) Integumentary: normal Extremities: no cyanosis, no edema, no clubbing, pulses normal Musculoskeletal: other (full right sided paralysis) unable to assess due to mental status, other (upward point babinski bilaterally. diffuse decreased reflexes) Results - Laboratory Findings CBC and BMP: 04/15/17 05:30 04/15/17 05:30 ABG ABG pH 7.37 pH Units (7.32-7.45) 04/14/17 03:46 ABG pCO2 46 mmHg (35-45) H 04/14/17 03:46 ABG pO2 99 mmHg (85-104) 04/14/17 03:46 ABG O2 Saturation 97 % (95-98) 04/14/17 03:46 Abnormal lab findings: Abnormal lab results WBC 12.4 K/mcL (4.3-11.1) H 04/15/17 05:30 Neutrophils # 9.8 K/mcL (1.6-8.9) H 04/15/17 05:30 ABG pCO2 46 mmHg (35-45) H 04/14/17 03:46 ABG Total CO2 28 mEq/L (20-26) H 04/14/17 03:46 Lactate 3.3 mmol/L (0.7-2.1) H 04/13/17 15:50 Creatinine 2.05 mg/dL (0.72-1.25) H 04/15/17 05:30 Est GFR ( Amer) 41 (> 60) L 04/15/17 05:30 Est GFR (Non-Af Amer) 34 (> 60) L 04/15/17 05:30 Glucose 187 mg/dL (70-99) H 04/15/17 05:30 POC Glucose 137 (58-89) H 04/15/17 08:09 Calculated Osmolality 303 (280-300) H 04/15/17 05:30 Phosphorus 4.9 mg/dL (2.3-4.7) H 04/13/17 12:19 AST 79 Units/L (5-34) H 04/15/17 05:30 Troponin I 0.98 ng/mL (0-0.03) H* 04/14/17 06:30 Albumin 2.7 g/dL (3.5-5.0) L 04/15/17 05:30 Globulin 4.1 g/dL (2.4-3.5) H 04/15/17 05:30 Albumin/Globulin Ratio 0.7 (1.1-2.2) L 04/15/17 05:30 Ur Specimen Adequacy See below A 04/13/17 12:55 Ur Specific [place] 1.027 (1.010-1.025) H 04/13/17 12:55 Urine Protein >=300 mg/dL (Neg-Trace) H 04/13/17 12:55 Urine Glucose (UA) >=1000 mg/dL (Normal) H 04/13/17 12:55 Urine Blood Large (Negative) H 04/13/17 12:55 Urine Microscopic RBC TNTC per hpf (0-3) H 04/13/17 12:55 Urine Microscopic WBC 5-15 per hpf (0-3) H 04/13/17 12:55 Ur Squamous Epith Cells Many per lpf (None-Few) H 04/13/17 12:55 Urine Bacteria Many per hpf (None-Few) H 04/13/17 12:55 Granular Casts Few per lpf (None Seen) H 04/13/17 12:55 Acetaminophen 1.0 mcg/mL (10-30) L 04/13/17 12:19 - Clinical Findings Intake & Output: Intake & Output 04/14/17 04/15/17 04/15/17 23:59 07:59 15:59 Intake Total 1580 / 1580 1100 / 1100 1000 / 1000 Output Total 1450 / 1450 1400 / 1400 700 / 700 Balance 130 / 130 -300 / -300 300 / 300 - VTE Documentation of Mechanical Device: Intermittent pneumatic compression device Consult Discharge Plan - Plan [facility]errals: [facility] [Primary Care Provider] - <Andrew Marion - Last Filed: 04/15/17 10:27> Date of Encounter: 04/15/17 Objective PUL Vital signs: Last Vital Signs Temp 101.0 F H 04/15/17 08:15 Pulse 108 04/15/17 08:15 Resp 18 04/15/17 08:15 BP 169/90 04/15/17 08:15 Pulse Ox 94 04/15/17 08:15 Results - Laboratory Findings CBC and BMP: 04/15/17 05:30 04/15/17 05:30 ABG ABG pH 7.37 pH Units (7.32-7.45) 04/14/17 03:46 ABG pCO2 46 mmHg (35-45) H 04/14/17 03:46 ABG pO2 99 mmHg (85-104) 04/14/17 03:46 ABG O2 Saturation 97 % (95-98) 04/14/17 03:46 Abnormal lab findings: Abnormal lab results WBC 12.4 K/mcL (4.3-11.1) H 04/15/17 05:30 Neutrophils # 9.8 K/mcL (1.6-8.9) H 04/15/17 05:30 ABG pCO2 46 mmHg (35-45) H 04/14/17 03:46 ABG Total CO2 28 mEq/L (20-26) H 04/14/17 03:46 Lactate 3.3 mmol/L (0.7-2.1) H 04/13/17 15:50 Creatinine 2.05 mg/dL (0.72-1.25) H 04/15/17 05:30 Est GFR ( Amer) 41 (> 60) L 04/15/17 05:30 Est GFR (Non-Af Amer) 34 (> 60) L 04/15/17 05:30 Glucose 187 mg/dL (70-99) H 04/15/17 05:30 POC Glucose 137 (58-89) H 04/15/17 08:09 Calculated Osmolality 303 (280-300) H 04/15/17 05:30 Phosphorus 4.9 mg/dL (2.3-4.7) H 04/13/17 12:19 AST 79 Units/L (5-34) H 04/15/17 05:30 Troponin I 0.98 ng/mL (0-0.03) H* 04/14/17 06:30 Albumin 2.7 g/dL (3.5-5.0) L 04/15/17 05:30 Globulin 4.1 g/dL (2.4-3.5) H 04/15/17 05:30 Albumin/Globulin Ratio 0.7 (1.1-2.2) L 04/15/17 05:30 Ur Specimen Adequacy See below A 04/13/17 12:55 Ur Specific [place] 1.027 (1.010-1.025) H 04/13/17 12:55 Urine Protein >=300 mg/dL (Neg-Trace) H 04/13/17 12:55 Urine Glucose (UA) >=1000 mg/dL (Normal) H 04/13/17 12:55 Urine Blood Large (Negative) H 04/13/17 12:55 Urine Microscopic RBC TNTC per hpf (0-3) H 04/13/17 12:55 Urine Microscopic WBC 5-15 per hpf (0-3) H 04/13/17 12:55 Ur Squamous Epith Cells Many per lpf (None-Few) H 04/13/17 12:55 Urine Bacteria Many per hpf (None-Few) H 04/13/17 12:55 Granular Casts Few per lpf (None Seen) H 04/13/17 12:55 Acetaminophen 1.0 mcg/mL (10-30) L 04/13/17 12:19 - Clinical Findings Intake & Output: Intake & Output 04/14/17 04/15/17 04/15/17 23:59 07:59 15:59 Intake Total 1580 / 1580 1100 / 1100 1000 / 1000 Output Total 1450 / 1450 1400 / 1400 700 / 700 Balance 130 / 130 -300 / -300 300 / 300 - Attending Attestation I examined this patient and my medical decision-making was reviewed with the Resident Physician. I agree with the documented findings, disposition and treatment plan as described except to the extent set forth below. Patient seen and examined. Labs, radiology, chart personally reviewed. Agree with resident's history and physical, assessment, plan with following comments: ADMINISTRATIVE EXECUTIVE: Patient does not follows commands, patient with massive stroke and very poor prognosis. Discussed with palliative care today and also neurology yesterday. Patient will be transferred to the floor. the goal would be to keep him euvolemic, normal temperature and prevent hyperglycemia. Pulmonary: Acceptable oxygenation and ventilation at this time, however he is at risk of aspiration area Cardiovascular: stable GI: Nutrition per dietary and GI prophylaxis per routine.this is will be challenging and palliative care all interested with the family. Heme: DVT prophylaxis per routine ID: Continue antibiotics and plan to de-escalation Renal; urine out put and renal funtion reviewed Endorcine: blood glucose is monitored Lines: all lines checked and no evidence of infections Skin: skin care to prevent pressure ulcers per nursing routine care very poor prognosis.
[2017-04-15] MEDS ORDERED: Lacri-Lube 3.5 GM TUBE BOTH EYES PRN (10:10)
[2017-04-15] MEDS ORDERED: *HR* Dextrose 50 % in Water (Syg) 50 ML SYRINGE IVP PRN (10:10)
[2017-04-15] MEDS ORDERED: Dextrose Gel 15 GM PO PRN ×2 (10:10)
[2017-04-15] MEDS ORDERED: D5% in Water 1,000 ML IVC PRN (10:10)
--- NOTE | 2017-04-15 10:57 | Neurology Progress Note ---
Date of Encounter: 04/15/17 Time of Encounter: 10:53 Assessment and Plan (1) Acute occipital temporal infarction Current Visit: No Status: Acute Large left occipital lobe infarct. Specifics discussed in yesterday's note. Clinically stable, perhaps slightly improved. However right hemiparesis and aphasia are expected to remain. Continue stroke protocol orders pending transfer from ICU. Risk factor mgmt paramount. Maintain keppra 500mg BID. Pt. will have a long and difficult road with rehab, and speech therapy as he becomes more awake. Unfortunately thrombolytics and neuroradiologic interventions were not an option here. Will follow peripherally. Call if further questions or concerns arise. Subjective Principal diagnosis: New onset seizures, h/o stroke Interval history: Chart reviewed, pt seen and examined. Case discussed with resident and nursing. Mannitol not given. Pt, however seems to be more responsive. Moving left arm and leg spontaneously. Arouses to voice. Still has right hemiparesis, right hemianopsia. Respirations less rapid today. Restless when aroused. No further seizures. Makes eye contact when approached from the left. Mumbles incoherently. Objective - Constitutional Vitals: Temp Pulse Resp BP Pulse Ox 100 F H 108 18 169/90 94 04/15/17 10:00 04/15/17 08:15 04/15/17 08:15 04/15/17 08:15 04/15/17 08:15 - Neurological Exam Motor Examination: Present: other (Limited neurological examination as patient is intubated and on sedation. Pupils are reactive corneals are positive minimal withdrawal to deep pain moving all 4 extremities.) Mental Status Examination: Present: does not follow commands, stupor, agitated, opens eyes to noxious stimulation Additional comments: As dictated in HPI. - VTE Documentation of Mechanical Device: Intermittent pneumatic compression device Results - Laboratory Findings CBC and BMP: 04/15/17 05:30 04/15/17 05:30 Abnormal lab findings: Abnormal lab results WBC 12.4 K/mcL (4.3-11.1) H 04/15/17 05:30 Neutrophils # 9.8 K/mcL (1.6-8.9) H 04/15/17 05:30 ABG pCO2 46 mmHg (35-45) H 04/14/17 03:46 ABG Total CO2 28 mEq/L (20-26) H 04/14/17 03:46 Lactate 3.3 mmol/L (0.7-2.1) H 04/13/17 15:50 Creatinine 2.05 mg/dL (0.72-1.25) H 04/15/17 05:30 Est GFR ( Amer) 41 (> 60) L 04/15/17 05:30 Est GFR (Non-Af Amer) 34 (> 60) L 04/15/17 05:30 Glucose 187 mg/dL (70-99) H 04/15/17 05:30 POC Glucose 137 (58-89) H 04/15/17 08:09 Calculated Osmolality 303 (280-300) H 04/15/17 05:30 Phosphorus 4.9 mg/dL (2.3-4.7) H 04/13/17 12:19 AST 79 Units/L (5-34) H 04/15/17 05:30 Troponin I 0.98 ng/mL (0-0.03) H* 04/14/17 06:30 Albumin 2.7 g/dL (3.5-5.0) L 04/15/17 05:30 Globulin 4.1 g/dL (2.4-3.5) H 04/15/17 05:30 Albumin/Globulin Ratio 0.7 (1.1-2.2) L 04/15/17 05:30 Ur Specimen Adequacy See below A 04/13/17 12:55 Ur Specific [place] 1.027 (1.010-1.025) H 04/13/17 12:55 Urine Protein >=300 mg/dL (Neg-Trace) H 04/13/17 12:55 Urine Glucose (UA) >=1000 mg/dL (Normal) H 04/13/17 12:55 Urine Blood Large (Negative) H 04/13/17 12:55 Urine Microscopic RBC TNTC per hpf (0-3) H 04/13/17 12:55 Urine Microscopic WBC 5-15 per hpf (0-3) H 04/13/17 12:55 Ur Squamous Epith Cells Many per lpf (None-Few) H 04/13/17 12:55 Urine Bacteria Many per hpf (None-Few) H 04/13/17 12:55 Granular Casts Few per lpf (None Seen) H 04/13/17 12:55 Acetaminophen 1.0 mcg/mL (10-30) L 04/13/17 12:19 Consult Discharge Plan - Plan [facility]errals: [facility] [Primary Care Provider] -
[2017-04-15] MEDS ORDERED: Lacri-Lube 3.5 GM TUBE BOTH EYES SCH (12:00)
[2017-04-15] MEDS: *HR* Morphine 2 MG/ML SYRINGE IVP PRN (17:16)
--- NOTE | 2017-04-15 17:53 | Event Note ---
Date of Encounter: 04/15/17 Time of Encounter: 16:00 Patient is unarousable, in no acute distress, appears tachipneic. Heart is tachycardic, regular. Lungs: coarse breath sounds. He was transferred from ICU this morning after being admitted for recurrent acute stroke with significant aphasia hemianopsia and hemiparesis and required intubation and mechanical ventilation. He is currently being treated for pneumonia. He has a very poor prognosis. Per discussion with the ICU palliative care is on board and the plan appears to be headed towards hospice care. Plan: Continue IV Zosyn. Morphine and Ativan for pain and agitation respectively. Rectal acetaminophen for fever. Follow-up with palliative care service. Patient is DNR CCA DNI.
[2017-04-15] MEDS: Acetaminophen 650 MG RECTAL SUPP RC PRN (18:07)
[2017-04-15] MEDS ORDERED: Vancomycin 1,000 MG in D5% in Water 250 ML IVPB ONE (19:54)
[2017-04-15] MEDS: Vancomycin 1,250 MG in D5% in Water 250 ML IVPB SCH (23:19)
[2017-04-16] MEDS: Insulin LISPRO 300 UNITS/3 ML VIAL SQ SCH ×6 (00:54→21:00)
[2017-04-16] MEDS: Piperacillin/Tazobactam 3.375 GM in D5% in Water (Mini-Bag+) 100 ML IVPB SCH ×3 (00:55→17:22)
[2017-04-16] MEDS: Ringers Solution, Lactated 1,000 ML IVC SCH ×3 (00:56→18:35)
[2017-04-16] MEDS: Ipratropium/Albuterol Neb 3 ML IH SCH ×4 (04:16→15:33)
[2017-04-16 05:27] LABS: Basophils # 0.1 K/mcL (0.0-0.2); Basophils % 0.4 %; Eosinophils % 0.3 %; Hematocrit 44.7 % (37.5-50.1); Immature Granulocytes % 0.6 % (0-4); Lymphocytes # 2.4 K/mcL (0.6-4.6); Lymphocytes % 15.4 %; Mean Corpuscular HGB Conc 32.7 g/dL (31.6-35.5); Mean Corpuscular Hemoglobin 28.1 pg (28.0-33.3); Mean Platelet Volume 10.8 fL (9.4-12.4); Monocytes # 2.1 K/mcL (0.0-1.3); Monocytes % 13.1 %; Neutrophils # 11.1 K/mcL (1.6-8.9); Platelet Count 211 K/mcL (140-400); Red Cell Distribution Width 12.9 % (11.5-14.5); Segmented Neutrophils % 70.2 %
[2017-04-16 05:30] LABS: Eosinophils # 0.1 K/mcL (0.0-0.6); Hemoglobin 14.6 g/dL (12.9-16.9)
[2017-04-16 05:55] LABS: Platelet Clumps Few (Not Present); Platelet Estimate Normal (Normal)
--- NOTE | 2017-04-16 07:36 | Palliative Progress Note ---
Date of Encounter: 04/16/17 Time of Encounter: 07:34 - Assessment and plan (1) Acute renal failure Current Visit: Yes Status: Acute Assessment and plan: BUN and creatinine are both improving. Plan per hospitalist, team No new labs this morning. Plan still per hospitalist team Qualifiers: Acute renal failure type: unspecified Qualified Code(s): N17.9 - Acute kidney failure, unspecified (2) Goals of care, counseling/discussion Current Visit: Yes Status: Acute Assessment and plan: DNR A, DNI. Current plan is to give the patient several days to see he might be able to accomplish. Then Decide long-term treatment Family not present this morning attempted talk to them when possible. This may take place tomorrow. (3) Acute respiratory failure with hypercapnia Current Visit: Yes Status: Acute Assessment and plan: Doing well off ventilator at this time Plan per hospitalist, (4) Altered mental status Current Visit: Yes Status: Acute Assessment and plan: Secondary to CVA, continue to watch Plan per hospitalist, she was unresponsive to my voice this morning I did not try noxious stimuli. Discuss with family about the needs for when I can. Qualifiers: Altered mental status type: unspecified Qualified Code(s): R41.82 - Altered mental status, unspecified (5) New onset seizure Current Visit: Yes Status: Acute Assessment and plan: No further seizures noted. Patient is being followed by neurology (6) Stroke Current Visit: No Status: Suspected Assessment and plan: followed by neurology Plan per hospitalist, and neurology, per neurology poor prognosis long-term. Qualifiers: CVA mechanism: other Qualified Code(s): I63.8 - Other cerebral infarction - Time Spent With Patient Total time spent is greater than 50% in coordination of care (as documented) at patient's floor/unit and/or counseling patient: - Subjective Interval history: Patient with large CVA, released from unit yesterday. he is nonresponsive to voice this morning Sotero is present. However the patient has no events noted overnight. Appears comfortable. - Constitutional Vitals: Abnormal lab results WBC 15.8 K/mcL (4.3-11.1) H 04/16/17 04:33 Neutrophils # 11.1 K/mcL (1.6-8.9) H 04/16/17 04:33 Monocytes # 2.1 K/mcL (0.0-1.3) H 04/16/17 04:33 Clumped Platelets Few (Not Present) A 04/16/17 04:33 ABG pCO2 46 mmHg (35-45) H 04/14/17 03:46 ABG Total CO2 28 mEq/L (20-26) H 04/14/17 03:46 Lactate 3.3 mmol/L (0.7-2.1) H 04/13/17 15:50 Creatinine 2.05 mg/dL (0.72-1.25) H 04/15/17 05:30 Est GFR ( Amer) 41 (> 60) L 04/15/17 05:30 Est GFR (Non-Af Amer) 34 (> 60) L 04/15/17 05:30 Glucose 187 mg/dL (70-99) H 04/15/17 05:30 POC Glucose 201 (58-89) H 04/15/17 17:12 Calculated Osmolality 303 (280-300) H 04/15/17 05:30 Phosphorus 4.9 mg/dL (2.3-4.7) H 04/13/17 12:19 AST 79 Units/L (5-34) H 04/15/17 05:30 Troponin I 0.98 ng/mL (0-0.03) H* 04/14/17 06:30 Albumin 2.7 g/dL (3.5-5.0) L 04/15/17 05:30 Globulin 4.1 g/dL (2.4-3.5) H 04/15/17 05:30 Albumin/Globulin Ratio 0.7 (1.1-2.2) L 04/15/17 05:30 Ur Specimen Adequacy See below A 04/13/17 12:55 Ur Specific [place] 1.027 (1.010-1.025) H 04/13/17 12:55 Urine Protein >=300 mg/dL (Neg-Trace) H 04/13/17 12:55 Urine Glucose (UA) >=1000 mg/dL (Normal) H 04/13/17 12:55 Urine Blood Large (Negative) H 04/13/17 12:55 Urine Microscopic RBC TNTC per hpf (0-3) H 04/13/17 12:55 Urine Microscopic WBC 5-15 per hpf (0-3) H 04/13/17 12:55 Ur Squamous Epith Cells Many per lpf (None-Few) H 04/13/17 12:55 Urine Bacteria Many per hpf (None-Few) H 04/13/17 12:55 Granular Casts Few per lpf (None Seen) H 04/13/17 12:55 Acetaminophen 1.0 mcg/mL (10-30) L 04/13/17 12:19 General appearance: Present: no acute distress - Head Head exam: Present: atraumatic, normal inspection - Eye Eye exam: Present: normal appearance - Respiratory Respiratory exam: Present: CTAB - Cardiovascular Cardiovascular exam: Present: RRR - GI/Abdominal GI/Abdominal exam: Present: normal bowel sounds, soft. Absent: tenderness - Extremities Exam Extremities exam: Present: normal inspection. Absent: tenderness - Neurological Exam Neurological exam: Present: altered - Psychiatric Psychiatric exam: Absent: agitated, anxious - Skin Skin exam: Present: dry, warm Palliative Quality Palliative Quality: Screen for Code Status: Yes, Screen for Goals of Care: Yes, Screen for Pain: Yes, If Pain Regimen Started, Initiate Bowel Regimen: NA, Screen for Nausea/Vomitting: Yes Code Status: 04/14/17 15:50 Resuscitation Status: Active [RES] Routine Comment: Resuscitation Status: [id number] - Labs CBC & Chem 7: 04/16/17 04:33 04/15/17 05:30 Labs: Laboratory Results - last 24 hr 04/15/17 04/15/17 04/15/17 08:09 12:15 17:12 WBC RBC Hgb Hct MCV MCH MCHC RDW Plt Count MPV Immature Gran % Seg Neutrophils % Lymphocytes % Monocytes % Eosinophils % Basophils % Neutrophils # Lymphocytes # Monocytes # Eosinophils # Basophils # Platelet Estimate Clumped Platelets POC Glucose 137 H 222 H 201 H 04/16/17 04:33 WBC 15.8 H RBC 5.20 Hgb 14.6 D Hct 44.7 MCV 86.0 MCH 28.1 MCHC 32.7 RDW 12.9 Plt Count 211 MPV 10.8 Immature Gran % 0.6 Seg Neutrophils % 70.2 Lymphocytes % 15.4 Monocytes % 13.1 Eosinophils % 0.3 Basophils % 0.4 Neutrophils # 11.1 H Lymphocytes # 2.4 Monocytes # 2.1 H Eosinophils # 0.1 Basophils # 0.1 Platelet Estimate Normal Clumped Platelets Few A POC Glucose - ABG Interpretation ABG results: ABG ABG pH 7.37 pH Units (7.32-7.45) 04/14/17 03:46 ABG pCO2 46 mmHg (35-45) H 04/14/17 03:46 ABG pO2 99 mmHg (85-104) 04/14/17 03:46 ABG O2 Saturation 97 % (95-98) 04/14/17 03:46 Consult Discharge Plan - Plan Referrals: [facility] [Primary Care Provider] -
[2017-04-16] MEDS: Acetaminophen 650 MG RECTAL SUPP RC PRN (08:12)
[2017-04-16] MEDS: Chlorhexidine Rinse 15 ML MOUTHWASH MM SCH ×2 (08:43→21:01)
[2017-04-16] MEDS: Pantoprazole 40 MG VIAL IVP SCH (10:02)
[2017-04-16] MEDS: Vancomycin 1,250 MG in D5% in Water 250 ML IVPB SCH ×2 (12:08→21:27)
--- NOTE | 2017-04-16 16:37 | Internal Med Progress Note ---
Date of Encounter: 04/16/17 Time of Encounter: 16:34 - Assessment and plan (1) Acute occipital temporal infarction Current Visit: No Status: Acute Assessment and plan: Currently monitoring for any signs of improvement. Able to voluntarily move his left arm and place his hand on his chest there are no other significant movements he is able to produce. He is aphasic. Continue stroke protocol orders. Currently on Keppra 500 mg twice a day from seizures that resulted from stroke. (2) Hyperglycemia Current Visit: No Status: Acute (3) Acute kidney injury Current Visit: Yes Status: Acute Assessment and plan: Labs available today. We will check up in the morning. Continue IV fluid hydration, currently on lactated Ringer's at 125 mL an hour. (4) CAD (coronary artery disease) Current Visit: No Status: Chronic Qualifiers: Coronary Disease-Associated Artery/Lesion type: [place] artery [place] vs. transplanted heart: [place] heart Associated angina: without angina Qualified Code(s): I25.10 - Atherosclerotic heart disease of [place] coronary artery without angina pectoris (5) Aspiration pneumonia Current Visit: Yes Status: Acute Assessment and plan: Renally dosed vancomycin and Zosyn. Qualifiers: Aspiration pneumonia type: unspecified Laterality: unspecified laterality Lung location: unspecified part of lung Qualified Code(s): J69.0 - Pneumonitis due to inhalation of food and vomit (6) Goals of care, counseling/discussion Current Visit: Yes Status: Acute Assessment and plan: Palate is following. We will also monitor continuously for neurological improvement. Will try to have discussion with family tomorrow and update on his situation. (7) Hypertension Current Visit: Yes Status: Acute Assessment and plan: Patient is nothing by mouth. Currently out of hydralazine IV every 6 hours when necessary. Was recommended that he have permissible hypertension up until today. Tomorrow consider gradually the lowering blood pressure. Qualifiers: Hypertension type: essential hypertension Qualified Code(s): I10 - Essential (primary) hypertension - Subjective Interval history: He was seen this morning. Patient is nonverbal. Currently he is unable to communicate. - Constitutional Vitals: Temp Pulse Resp BP Pulse Ox 98.5 F 87 20 168/100 93 04/16/17 16:00 04/16/17 16:00 04/16/17 16:00 04/16/17 16:00 04/16/17 16:00 Exam: - Head Head exam: Present: atraumatic, normal inspection - Respiratory Respiratory exam: Present: CTAB - Cardiovascular Cardiovascular exam: Present: RRR - GI/Abdominal GI/Abdominal exam: Present: normal bowel sounds, soft. Absent: tenderness - Extremities Exam Extremities exam: Present: normal inspection. Absent: tenderness - Neurological Exam Neurological exam: Present: altered He responds to verbal commands. His complete right side is flaccid. His is able to lift his left arm up to his abdomen and back down. When asked to wiggle his toes, there are fasciculation of the great toe. Grasp strength is 1+ on right upper arm. Right side face is drooped. He attempts to speak but is only able to mumble. - Psychiatric Psychiatric exam: Absent: agitated, anxious - Skin Skin exam: Present: dry, warm Internal Medicine: Result - Labs CBC & Chem 7: 04/16/17 04:33 04/15/17 05:30 Labs: Short CBC 04/16/17 Range/Units 04:33 WBC 15.8 H (4.3-11.1) K/mcL Hgb 14.6 D (12.9-16.9) g/dL Hct 44.7 (37.5-50.1) % Plt Count 211 (140-400) K/mcL Neutrophils # 11.1 H (1.6-8.9) K/mcL - ABG Interpretation ABG results: ABG ABG pH 7.37 pH Units (7.32-7.45) 04/14/17 03:46 ABG pCO2 46 mmHg (35-45) H 04/14/17 03:46 ABG pO2 99 mmHg (85-104) 04/14/17 03:46 ABG O2 Saturation 97 % (95-98) 04/14/17 03:46 - VTE Documentation of Mechanical Device: Intermittent pneumatic compression device Consult Discharge Plan - Plan Referrals: [facility] [Primary Care Provider] -
[2017-04-16] MEDS: *HR* LORazepam 2 MG/ML VIAL IVP PRN (18:35)
[2017-04-16] MEDS ORDERED: Ipratropium/Albuterol Neb 3 ML IH PRN (21:48)
[2017-04-17] MEDS: Piperacillin/Tazobactam 3.375 GM in D5% in Water (Mini-Bag+) 100 ML IVPB SCH ×3 (00:03→17:53)
[2017-04-17] MEDS: Insulin LISPRO 300 UNITS/3 ML VIAL SQ SCH ×6 (00:07→20:44)
[2017-04-17] MEDS: Ringers Solution, Lactated 1,000 ML IVC SCH ×3 (00:30→19:11)
[2017-04-17 05:46] LABS: Basophils # 0.1 K/mcL (0.0-0.2); Basophils % 0.4 %; Eosinophils # 0.1 K/mcL (0.0-0.6); Eosinophils % 0.5 %; Hematocrit 43.9 % (37.5-50.1); Immature Granulocytes % 0.7 % (0-4); Lymphocytes # 1.3 K/mcL (0.6-4.6); Lymphocytes % 9.3 %; Mean Corpuscular HGB Conc 31.9 g/dL (31.6-35.5); Mean Corpuscular Hemoglobin 27.5 pg (28.0-33.3); Mean Corpuscular Volume 86.2 fL (83.0-100.0); Mean Platelet Volume 10.6 fL (9.4-12.4); Monocytes % 7.2 %; Neutrophils # 11.3 K/mcL (1.6-8.9); Platelet Count 222 K/mcL (140-400); Red Blood Count 5.09 M/mcL (4.19-5.50); Red Cell Distribution Width 12.9 % (11.5-14.5); Segmented Neutrophils % 81.9 %
[2017-04-17 05:58] LABS: BUN/Creatinine Ratio 13 (6-26); Blood Urea Nitrogen 19 mg/dL (8-26); Calcium 10.3 mg/dL (8.6-10.8); Carbon Dioxide 21 mEq/L (19-29); Chloride 102 mEq/L (98-109); Glucose 198 mg/dL (70-99); Osmolality,Calculated 288 (280-300); Sodium 135 mEq/L (136-145); eGFR For African Americans > 60 (> 60); eGFR For Non-African Americans 51 (> 60)
--- NOTE | 2017-04-17 07:33 | Palliative Progress Note ---
Date of Encounter: 04/17/17 Time of Encounter: 07:05 - Assessment and plan (1) Acute renal failure Current Visit: Yes Status: Acute Assessment and plan: Peers resolved Qualifiers: Acute renal failure type: unspecified Qualified Code(s): N17.9 - Acute kidney failure, unspecified (2) Goals of care, counseling/discussion Current Visit: Yes Status: Acute Assessment and plan: DNR A, DNI. Current plan is to give the patient several days to see he might be able to accomplish. Patient has accomplished a great deal thus far. I will put in for a swallow study today we follow up with family today. (3) Acute respiratory failure with hypercapnia Current Visit: Yes Status: Acute Assessment and plan: Doing well at this time Plan per hospitalist, (4) Altered mental status Current Visit: Yes Status: Acute Assessment and plan: Secondary to CVA, continue to watch Plan per hospitalist, his responsiveness has improved markedly over the course of the last 72 hours.. Qualifiers: Altered mental status type: unspecified Qualified Code(s): R41.82 - Altered mental status, unspecified (5) New onset seizure Current Visit: Yes Status: Acute Assessment and plan: No further seizures noted. Patient is being followed by neurology (6) Stroke Current Visit: No Status: Suspected Assessment and plan: followed by neurology Plan per hospitalist, and neurology, per neurology poor prognosis long-term. However the patient has improved markedly in the last 72 hours. A be all that he is able to accomplish, however this point it seems reasonable to try to work with him in terms of rehabilitation. The patient actually expressed to me with yes no answers that he would probably be okay with the PEG tube discuss this further with his family. Qualifiers: CVA mechanism: other Qualified Code(s): I63.8 - Other cerebral infarction - Time Spent With Patient Total time spent is greater than 50% in coordination of care (as documented) at patient's floor/unit and/or counseling patient: - Subjective Interval history: Patient with large CVA, the patient is remarkabley responsive today responding to voice with opening eyes. And does follow commands. The patient is also able to answer yes no questions, however how well he is understanding them I am not sure. nO family present. The patient denies any pain or problems at this time. - Constitutional Vitals: Abnormal lab results WBC 13.8 K/mcL (4.3-11.1) H 04/17/17 04:45 MCH 27.5 pg (28.0-33.3) L 04/17/17 04:45 Neutrophils # 11.3 K/mcL (1.6-8.9) H 04/17/17 04:45 Clumped Platelets Few (Not Present) A 04/16/17 04:33 ABG pCO2 46 mmHg (35-45) H 04/14/17 03:46 ABG Total CO2 28 mEq/L (20-26) H 04/14/17 03:46 Lactate 3.3 mmol/L (0.7-2.1) H 04/13/17 15:50 Sodium 135 mEq/L (136-145) L 04/17/17 04:45 Creatinine 1.42 mg/dL (0.72-1.25) H 04/17/17 04:45 Est GFR (Non-Af Amer) 51 (> 60) L 04/17/17 04:45 Glucose 198 mg/dL (70-99) H 04/17/17 04:45 POC Glucose 199 (58-89) H 04/17/17 04:30 Phosphorus 4.9 mg/dL (2.3-4.7) H 04/13/17 12:19 AST 79 Units/L (5-34) H 04/15/17 05:30 Troponin I 0.98 ng/mL (0-0.03) H* 04/14/17 06:30 Albumin 2.7 g/dL (3.5-5.0) L 04/15/17 05:30 Globulin 4.1 g/dL (2.4-3.5) H 04/15/17 05:30 Albumin/Globulin Ratio 0.7 (1.1-2.2) L 04/15/17 05:30 Ur Specimen Adequacy See below A 04/13/17 12:55 Ur Specific [place] 1.027 (1.010-1.025) H 04/13/17 12:55 Urine Protein >=300 mg/dL (Neg-Trace) H 04/13/17 12:55 Urine Glucose (UA) >=1000 mg/dL (Normal) H 04/13/17 12:55 Urine Blood Large (Negative) H 04/13/17 12:55 Urine Microscopic RBC TNTC per hpf (0-3) H 04/13/17 12:55 Urine Microscopic WBC 5-15 per hpf (0-3) H 04/13/17 12:55 Ur Squamous Epith Cells Many per lpf (None-Few) H 04/13/17 12:55 Urine Bacteria Many per hpf (None-Few) H 04/13/17 12:55 Granular Casts Few per lpf (None Seen) H 04/13/17 12:55 Acetaminophen 1.0 mcg/mL (10-30) L 04/13/17 12:19 General appearance: Present: no acute distress - Head Head exam: Present: atraumatic, normal inspection - Eye Eye exam: Present: normal appearance - ENT ENT exam: Present: mucous membranes moist - Respiratory Respiratory exam: Present: CTAB - Cardiovascular Cardiovascular exam: Present: RRR - GI/Abdominal GI/Abdominal exam: Present: normal bowel sounds, soft. Absent: tenderness - Extremities Exam Extremities exam: Present: normal inspection. Absent: pedal edema, tenderness - Neurological Exam Neurological exam: Present: alert (Awakens easily to name), motor sensory deficit (Can squeeze left hand, Tracee weak but can. Believe I detect a little bit of motion in the left leg right-sided is dense hemiparesis), speech deficit. Absent: no focal deficits, strengths equal and symetr throughout - Psychiatric Psychiatric exam: Absent: agitated, anxious - Skin Skin exam: Present: dry, warm Palliative Quality Palliative Quality: Screen for Code Status: Yes, Screen for Goals of Care: Yes, Screen for Pain: Yes, If Pain Regimen Started, Initiate Bowel Regimen: NA, Screen for Nausea/Vomitting: Yes Code Status: 04/14/17 15:50 Resuscitation Status: Active [RES] Routine Comment: Resuscitation Status: [id number] - Labs CBC & Chem 7: 04/17/17 04:45 04/17/17 04:45 Labs: Laboratory Results - last 24 hr 04/15/17 04/16/17 04/16/17 20:53 00:16 04:07 WBC RBC Hgb Hct MCV MCH MCHC RDW Plt Count MPV Immature Gran % Seg Neutrophils % Lymphocytes % Monocytes % Eosinophils % Basophils % Neutrophils # Lymphocytes # Monocytes # Eosinophils # Basophils # Sodium Potassium Chloride Carbon Dioxide BUN Creatinine Est GFR ( Amer) Est GFR (Non-Af Amer) BUN/Creatinine Ratio Glucose POC Glucose 208 H 205 H 211 H Calculated Osmolality Calcium 04/16/17 04/17/17 04/17/17 06:38 04:30 04:45 WBC 13.8 H RBC 5.09 Hgb 14.0 Hct 43.9 MCV 86.2 MCH 27.5 L MCHC 31.9 RDW 12.9 Plt Count 222 MPV 10.6 Immature Gran % 0.7 Seg Neutrophils % 81.9 Lymphocytes % 9.3 Monocytes % 7.2 Eosinophils % 0.5 Basophils % 0.4 Neutrophils # 11.3 H Lymphocytes # 1.3 Monocytes # 1.0 Eosinophils # 0.1 Basophils # 0.1 Sodium Potassium Chloride Carbon Dioxide BUN Creatinine Est GFR ( Amer) Est GFR (Non-Af Amer) BUN/Creatinine Ratio Glucose POC Glucose 192 H 199 H Calculated Osmolality Calcium 04/17/17 04:45 WBC RBC Hgb Hct MCV MCH MCHC RDW Plt Count MPV Immature Gran % Seg Neutrophils % Lymphocytes % Monocytes % Eosinophils % Basophils % Neutrophils # Lymphocytes # Monocytes # Eosinophils # Basophils # Sodium 135 L Potassium 4.0 Chloride 102 Carbon Dioxide 21 BUN 19 Creatinine 1.42 H Est GFR ( Amer) > 60 Est GFR (Non-Af Amer) 51 L BUN/Creatinine Ratio 13 Glucose 198 H POC Glucose Calculated Osmolality 288 Calcium 10.3 - ABG Interpretation ABG results: ABG ABG pH 7.37 pH Units (7.32-7.45) 04/14/17 03:46 ABG pCO2 46 mmHg (35-45) H 04/14/17 03:46 ABG pO2 99 mmHg (85-104) 04/14/17 03:46 ABG O2 Saturation 97 % (95-98) 04/14/17 03:46 Consult Discharge Plan - Plan [facility]errals: [facility] [Primary Care Provider] -
[2017-04-17] MEDS: Pantoprazole 40 MG VIAL IVP SCH (09:48)
[2017-04-17] MEDS: Chlorhexidine Rinse 15 ML MOUTHWASH MM SCH (10:04)
[2017-04-17] MEDS: *HR* LORazepam 2 MG/ML VIAL IVP PRN ×2 (10:09→17:51)
--- NOTE | 2017-04-17 17:01 | Event Note ---
Date of Encounter: 04/17/17 Time of Encounter: 15:45 Conducted 45 minute family meeting with brother Raj and Nephew Alberto. Reviewed POC and patients CVA and overall poor prognosis. Reviewed medications, clinical assessment, and diagnostics. Patient has moments of clarity with the ability to follow commands and has spontaneous movement of his left arm and leg. I discussed patients inability to follow commands today to participate in swallow evaluation and physical therapy. Patient with right mouth droop and pooling of secretions. Placed suction at bedside to assist with oral secretions. Discussed PEG tube and complications from having tube placed such as , infection, dumping syndrome, aspiration. Educated that CVA's can take several months to see residual effects of patients abilities. Plan for now is to continue current plan and assess daily for improvement. Patient attempts to pull out gaona catheter. Next family meeting set for tomorrow 04/18/17 at 3:45. Will update family at this time and continue to discuss progress and desires. Patient has bed hold at [facility] and will need rehab but must be able to participate in activities. Family to continue to discuss PEG desires as patient had verbalized to Dr. Rose that he would desire PEG. Will continue to follow.
[2017-04-17] MEDS: Vancomycin 1,000 MG in D5% in Water 250 ML IVPB SCH (20:40)
--- NOTE | 2017-04-17 23:42 | Internal Med Progress Note ---
Date of Encounter: 04/17/17 Time of Encounter: 14:00 - Assessment and plan (1) Acute occipital temporal infarction Current Visit: No Status: Acute Assessment and plan: Family is discussing goals of care. Patient's [id number] and cousin both state that his brother is closest to him and can most accurately tell what patient's wishes are. As of now, he is being monitored on a day-by-day basis for improvement. he is currently unable to swallow and nutrition will need to be addressed soon. (2) Hyperglycemia Current Visit: No Status: Acute Assessment and plan: Basal insulin has been added for better glycemic control. (3) Acute kidney injury Current Visit: Yes Status: Acute Assessment and plan: Shown improvement was in 2 range and now is 1.4. (4) CAD (coronary artery disease) Current Visit: No Status: Chronic Qualifiers: Coronary Disease-Associated Artery/Lesion type: [place] artery [place] vs. transplanted heart: [place] heart Associated angina: without angina Qualified Code(s): I25.10 - Atherosclerotic heart disease of [place] coronary artery without angina pectoris (5) Aspiration pneumonia Current Visit: Yes Status: Acute Qualifiers: Aspiration pneumonia type: unspecified Laterality: unspecified laterality Lung location: unspecified part of lung Qualified Code(s): J69.0 - Pneumonitis due to inhalation of food and vomit (6) Goals of care, counseling/discussion Current Visit: Yes Status: Acute (7) Hypertension Current Visit: Yes Status: Acute Qualifiers: Hypertension type: essential hypertension Qualified Code(s): I10 - Essential (primary) hypertension - Subjective Interval history: Patient's [id number] and cousin are present at bedside. They would like to mention they are concerned that his face is worsening. They note that his right side of his face is drooping more than before. They witnessed saying words two days ago but right now is unable to. - Constitutional Vitals: Temp Pulse Resp BP Pulse Ox 97.9 F 109 24 159/80 90 04/17/17 18:33 04/17/17 18:33 04/17/17 20:55 04/17/17 18:33 04/17/17 20:55 Exam: Gen: less agitated than my exam yesterday. He pulls at gaona catheter occasionally. CVS: RRR Lungs: deminished breath sounds at both lung bases Neuro: Sensation: LLE and LUE respond to tactile stimuli. RLE and RUE do not respond to tactile stimuli Strength: left arm: 3+, left le+. Right leg and left leg strength: 0 Reflex: Patellar: left: 1+, Right: 0. Commands: responds to verbal commands. CN: can partially track moving finger, PERRLA. Right sided droop with head limp towards affected side. Hearing is grossly normal. Internal Medicine: Result - Labs CBC & Chem 7: 04/17/17 04:45 04/17/17 04:45 Labs: Short CBC 04/17/17 Range/Units 04:45 WBC 13.8 H (4.3-11.1) K/mcL Hgb 14.0 (12.9-16.9) g/dL Hct 43.9 (37.5-50.1) % Plt Count 222 (140-400) K/mcL Neutrophils # 11.3 H (1.6-8.9) K/mcL BMP 04/17/17 04:45 Sodium 135 L Potassium 4.0 Chloride 102 Carbon Dioxide 21 BUN 19 Creatinine 1.42 H Glucose 198 H Calcium 10.3 - ABG Interpretation ABG results: ABG ABG pH 7.37 pH Units (7.32-7.45) 04/14/17 03:46 ABG pCO2 46 mmHg (35-45) H 04/14/17 03:46 ABG pO2 99 mmHg (85-104) 04/14/17 03:46 ABG O2 Saturation 97 % (95-98) 04/14/17 03:46 - VTE Documentation of Mechanical Device: Intermittent pneumatic compression device Consult Discharge Plan - Plan [facility]errals: [facility] [Primary Care Provider] -
[2017-04-18] MEDS: Piperacillin/Tazobactam 3.375 GM in D5% in Water (Mini-Bag+) 100 ML IVPB SCH ×2 (00:43→08:05)
[2017-04-18] MEDS: Insulin LISPRO 300 UNITS/3 ML VIAL SQ SCH ×4 (00:44→12:04)
[2017-04-18] MEDS: Ringers Solution, Lactated 1,000 ML IVC SCH ×2 (03:26→12:11)
[2017-04-18 06:43] LABS: Basophils # 0.1 K/mcL (0.0-0.2); Basophils % 0.4 %; Eosinophils # 0.1 K/mcL (0.0-0.6); Eosinophils % 0.8 %; Hematocrit 42.7 % (37.5-50.1); Immature Granulocytes % 0.5 % (0-4); Lymphocytes # 1.1 K/mcL (0.6-4.6); Lymphocytes % 8.6 %; Mean Corpuscular HGB Conc 32.8 g/dL (31.6-35.5); Mean Corpuscular Hemoglobin 28.5 pg (28.0-33.3); Mean Platelet Volume 10.4 fL (9.4-12.4); Monocytes % 7.5 %; Neutrophils # 10.9 K/mcL (1.6-8.9); Platelet Count 234 K/mcL (140-400); Red Blood Count 4.91 M/mcL (4.19-5.50); Segmented Neutrophils % 82.2 %
[2017-04-18 06:53] LABS: Potassium 3.9 mEq/L (3.5-4.5)
[2017-04-18] MEDS: Vancomycin 1,000 MG in D5% in Water 250 ML IVPB SCH (08:06)
[2017-04-18] MEDS: Pantoprazole 40 MG VIAL IVP SCH (08:21)
[2017-04-18] MEDS ORDERED: Insulin DETEMIR 100 UNIT/ML X5UNITS SQ SCH (09:00)
[2017-04-18] MEDS ORDERED: Bisacodyl 10 MG RECTAL SUPPOSITORY RC SCH (09:00)
[2017-04-18] MEDS: *HR* LORazepam 2 MG/ML VIAL IVP PRN (10:28)
--- NOTE | 2017-04-18 10:46 | Palliative Progress Note ---
Date of Encounter: 04/18/17 Time of Encounter: 09:40 - Assessment and plan (1) Acute renal failure Current Visit: Yes Status: Acute Assessment and plan: Peers resolved Qualifiers: Acute renal failure type: unspecified Qualified Code(s): N17.9 - Acute kidney failure, unspecified (2) Goals of care, counseling/discussion Current Visit: Yes Status: Acute Assessment and plan: DNR A, DNI. Current plan is to give the patient several days to see he might be able to accomplish. It appeared yesterday the patient had accomplished a great deal. Today however, the patient has definitely slid backwards. He is no longer responsive to verbal able to just pain at all in the exam. Overall I think this is a extremely poor (3) Acute respiratory failure with hypercapnia Current Visit: Yes Status: Acute Assessment and plan: Doing well at this time Plan per hospitalist, (4) Altered mental status Current Visit: Yes Status: Acute Assessment and plan: Secondary to CVA, continue to watch Plan per hospitalist, his responsiveness has greatly decreased since yesterday. I believe this is a poor prognostic indicator will discuss further with family. Qualifiers: Altered mental status type: unspecified Qualified Code(s): R41.82 - Altered mental status, unspecified (5) New onset seizure Current Visit: Yes Status: Acute Assessment and plan: No further seizures noted. Patient is being followed by neurology (6) Stroke Current Visit: No Status: Suspected Assessment and plan: followed by neurology Plan per hospitalist, and neurology, per neurology poor prognosis long-term. She has deftly slid backwards in the last 24 hours from where he was yesterday morning. We will discuss this further with the family, however this does tend to fit with the poor prognosis predicted by neurology. Qualifiers: CVA mechanism: other Qualified Code(s): I63.8 - Other cerebral infarction - Time Spent With Patient Total time spent is greater than 50% in coordination of care (as documented) at patient's floor/unit and/or counseling patient: - Subjective Interval history: Patient with large CVA, the patient is remarkabley less responsive today than yesterday. Patient is not responsive to my verbal stimuli at all. Following commands. I would not be the least bits prized given his clinical history thus far that he has evolved a stroke further. Family meeting is planned for 154 today. We will discuss role care and possibility of feeding tube at that time. Believe that this represents a major change and will have to be discussed. - Constitutional Vitals: Abnormal lab results WBC 13.3 K/mcL (4.3-11.1) H 04/18/17 06:15 Neutrophils # 10.9 K/mcL (1.6-8.9) H 04/18/17 06:15 Clumped Platelets Few (Not Present) A 04/16/17 04:33 ABG pCO2 46 mmHg (35-45) H 04/14/17 03:46 ABG Total CO2 28 mEq/L (20-26) H 04/14/17 03:46 Lactate 3.3 mmol/L (0.7-2.1) H 04/13/17 15:50 BUN 27 mg/dL (8-26) H 04/18/17 06:15 Creatinine 1.47 mg/dL (0.72-1.25) H 04/18/17 06:15 Est GFR (Non-Af Amer) 49 (> 60) L 04/18/17 06:15 Glucose 202 mg/dL (70-99) H 04/18/17 06:15 POC Glucose 187 (58-89) H 04/18/17 04:05 Phosphorus 4.9 mg/dL (2.3-4.7) H 04/13/17 12:19 AST 79 Units/L (5-34) H 04/15/17 05:30 Troponin I 0.98 ng/mL (0-0.03) H* 04/14/17 06:30 Albumin 2.7 g/dL (3.5-5.0) L 04/15/17 05:30 Globulin 4.1 g/dL (2.4-3.5) H 04/15/17 05:30 Albumin/Globulin Ratio 0.7 (1.1-2.2) L 04/15/17 05:30 Ur Specimen Adequacy See below A 04/13/17 12:55 Ur Specific [place] 1.027 (1.010-1.025) H 04/13/17 12:55 Urine Protein >=300 mg/dL (Neg-Trace) H 04/13/17 12:55 Urine Glucose (UA) >=1000 mg/dL (Normal) H 04/13/17 12:55 Urine Blood Large (Negative) H 04/13/17 12:55 Urine Microscopic RBC TNTC per hpf (0-3) H 04/13/17 12:55 Urine Microscopic WBC 5-15 per hpf (0-3) H 04/13/17 12:55 Ur Squamous Epith Cells Many per lpf (None-Few) H 04/13/17 12:55 Urine Bacteria Many per hpf (None-Few) H 04/13/17 12:55 Granular Casts Few per lpf (None Seen) H 04/13/17 12:55 Vancomycin Trough 21.9 mcg/mL (10-20) H* 04/17/17 08:20 Acetaminophen 1.0 mcg/mL (10-30) L 04/13/17 12:19 Levetiracetam 8 ug/mL (12-46) L 04/14/17 09:00 General appearance: Present: no acute distress - Head Head exam: Present: atraumatic, normal inspection - ENT ENT exam: Present: mucous membranes moist (Agent is now drooling and not controlling oral secretions at all.) - Respiratory Respiratory exam: Present: decreased breath sounds - Cardiovascular Cardiovascular exam: Present: RRR - GI/Abdominal GI/Abdominal exam: Present: normal bowel sounds, soft. Absent: tenderness - Extremities Exam Extremities exam: Present: normal inspection. Absent: tenderness - Neurological Exam Neurological exam: Present: altered, motor sensory deficit, facial droop, speech deficit. Absent: oriented X3, no focal deficits (Asians had a major change in chest today not following any commands at all at this time is completely flaccid the right side and not moving the left side at all at this point in time. Thirdly not following commands), strengths equal and symetr throughout - Psychiatric Psychiatric exam: Absent: agitated, anxious - Skin Skin exam: Present: dry, warm Palliative Quality Palliative Quality: Screen for Code Status: Yes, Screen for Goals of Care: Yes, Screen for Pain: Yes, If Pain Regimen Started, Initiate Bowel Regimen: NA, Screen for Nausea/Vomitting: Yes Code Status: 04/14/17 15:50 Resuscitation Status: Active [RES] Routine Comment: Resuscitation Status: [id number] - Labs CBC & Chem 7: 04/18/17 06:15 04/18/17 06:15 Labs: Laboratory Results - last 24 hr 04/18/17 04/18/17 04/18/17 00:30 04:05 06:15 WBC 13.3 H RBC 4.91 Hgb 14.0 Hct 42.7 MCV 87.0 MCH 28.5 MCHC 32.8 RDW 13.0 Plt Count 234 MPV 10.4 Immature Gran % 0.5 Seg Neutrophils % 82.2 Lymphocytes % 8.6 Monocytes % 7.5 Eosinophils % 0.8 Basophils % 0.4 Neutrophils # 10.9 H Lymphocytes # 1.1 Monocytes # 1.0 Eosinophils # 0.1 Basophils # 0.1 Sodium Potassium Chloride Carbon Dioxide BUN Creatinine Est GFR ( Amer) Est GFR (Non-Af Amer) BUN/Creatinine Ratio Glucose POC Glucose 184 H 187 H Calculated Osmolality Calcium 04/18/17 06:15 WBC RBC Hgb Hct MCV MCH MCHC RDW Plt Count MPV Immature Gran % Seg Neutrophils % Lymphocytes % Monocytes % Eosinophils % Basophils % Neutrophils # Lymphocytes # Monocytes # Eosinophils # Basophils # Sodium 137 Potassium 3.9 Chloride 104 Carbon Dioxide 23 BUN 27 H Creatinine 1.47 H Est GFR ( Amer) 60 Est GFR (Non-Af Amer) 49 L BUN/Creatinine Ratio 18 Glucose 202 H POC Glucose Calculated Osmolality 295 Calcium 10.0 - ABG Interpretation ABG results: ABG ABG pH 7.37 pH Units (7.32-7.45) 04/14/17 03:46 ABG pCO2 46 mmHg (35-45) H 04/14/17 03:46 ABG pO2 99 mmHg (85-104) 04/14/17 03:46 ABG O2 Saturation 97 % (95-98) 04/14/17 03:46 Consult Discharge Plan - Plan [facility]errals: [facility] [Primary Care Provider] - (Patient will be discharged to [facility] at discharge and will follow up with their PCP)
[2017-04-18 11:30] VITALS: BP 102/65
[2017-04-18] MEDS: *HR* Morphine 2 MG/ML SYRINGE IVP PRN ×3 (12:05→14:26)
[2017-04-18] MEDS ORDERED: Scopolamine Patch 1.5 MG PATCH.TD72 TD SCH (13:00)
[2017-04-18] MEDS ORDERED: Atropine Sulfate 1% 40 DROP/2 ML BOTTLE SL PRN (13:00)
[2017-04-18] MEDS ORDERED: *HR* LORazepam 2 MG/ML VIAL IVP PRN (13:01)
[2017-04-18] MEDS ORDERED: Insulin LISPRO 300 UNITS/3 ML VIAL SQ SCH (13:44)
--- NOTE | 2017-04-18 13:50 | Event Note ---
Date of Encounter: 04/18/17 Time of Encounter: 13:48 Discussed with patient's family regarding the patient's change in status over the last 4 hours. It appears that the patient's status has significantly declined. Family wishes to stop any further aggressive care. In transition towards hospice. All aggressive medications have now been stopped with the exception of the Keppra. She hospice care on . She will go general inpatient hospice on and we will reevaluate. In the meantime I have increased patient's comfort meds and discussed with the hospitalist. Patient's CODE STATUS is now DO NOT RESUSCITATE comfort care and again patient will transition to hospice care on .
--- NOTE | 2017-04-18 16:12 | Death Note ---
Discharge Sum: Summary - Date and Time Date of admission: 04/13/17 14:14 Date of : 04/18/17 Time of : 15:40 - Summary Details: 56-year-old male patient with history of coronary artery disease, diabetes mellitus, essential hypertension, recent cerebrovascular accident was admitted here with sepsis associated with metabolic acidosis and respiratory acidosis along with tonic-clonic seizures. Patient was initially admitted to ICU and managed with intravenous antibiotics to cover for healthcare associated/ aspiration pneumonia with broad-spectrum antibiotics along with endotracheal intubation and mechanical ventilation. On admission he also had acute kidney injury. Neurology was consulted to help manage patient's seizures. Per their recommendation, patient was started on Keppra. MRI of the brain was done which showed large acute left [employer] territory infarction involving the left occipital lobe, posterior aspect of left parietal lobe, left temporal lobe and left thalamus along with small acute infarctions in the left basal ganglia, right aspect of the mons and old infarcts in the right temporal lobe and left occipital lobe. Given the extensive stroke, palliative care was consulted due to patient's poor prognosis. After discussing goals of care with family members , patient was made DNR/DNI. Patient was then extubated and transferred to the floor. Patient seemed to improve clinically yesterday to the point where he was able to respond to questions with the palliative care attending Dr. Rose. Per discussion with palliative care team, family was willing to consider PEG tube placement if patient continued to recover. However this morning, patient suddenly desaturated into the 40s and developed cyanosis of his face and extremities. He was immediately suctioned and placed back on oxygen nonrebreather mask with improvement in his oxygen saturation. Patient's mentation has also declined since yesterday evening and he did not respond to any questions this morning. As such, palliative care team again discussed with the patient's family and decided to transition patient to DNR comfort care and hospice. At 1540 hrs, with family present at bedside, patient peacefully. The nursing staff was notified and I was called. I examined the patient at 1555 hrs and pronounced him. Family was present at bedside. - Additional Data Confirmation of as documented by pronouncing clinician: no pulse, no respirations, no heart sounds, pupils fixed and dilated Family: at bedside Attending/PCP notified?: Yes Attending physician: Amirah Liao MD Was code activated?: No Autopsy requested?: No Organ bank notified?: Yes Advance directives: Yes Hospice patient?: Yes (Patient being transitioned to hospice) Discharge Sum: Diag - PCOD Probable Cause of : Cardiorespiratory arrest Discharge Sum: Prov - Provider Primary care physician: PCP BRUCE Admitting clinician: Andrew Marion Attending physician on admission: Andrew Marion Consults: 04/13/17 15:25 Consult to Neurology [CONS] Routine Consulting Provider: Neurology [facility] Reason for Consult: 3 witnessed tonic clonic seizures today, no previous history of seizures. CVA approximately 1 month ago Call Completed: Yes 04/13/17 16:35 Consult to Interpret Exam [CONS] Routine Consulting Provider: Ashley Dill I Consult to Interpret Exam: Interpret EEG 04/14/17 15:14 Consult to Palliative Care [CONS] Routine Comment: Consulting Provider: Palliative [facility] Reason for Consult: goals of therapy Call Completed: Yes 04/17/17 07:37 Consult to Speech Therapy [CONS] Stat Comment: Evaluate, develop and implement POC Reason for Consult: s/p cva please evaluate for swallowing Call Completed: No 04/17/17 07:38 Consult to Physical Therapy [CONS] Stat Comment: Evaluate, develop and implement POC Reason for Consult: s/p cva evaluate rehab potential 04/17/17 07:39 Consult to Occupational Therapy [CONS] Stat Comment: Evaluate, develop and implement POC Reason for Consult: s/p cva evaluate rehab potential 04/17/17 11:10 Consult to Invasive Line Access Team [CONS] Routine Reason for Consult: needs 2 iv's Line Type: EPIV Pronouncing clinician: Amirah Liao
[2017-04-18] MEDS ORDERED: Aminoglycoside Consult 1 EACH MC ONE (18:39)
[2017-04-18] MEDS ORDERED: Lacri-Lube 3.5 GM TUBE RIGHT EYE SCH (21:00)
== END 2017-04-18 18:40 | disposition expired | DRG 871 ==
LOC: EMEROO 12:07 → SUATTDRO 14:14 → ICNU 14:14 → 2ANU 04-15 14:44
PROVIDERS: ADMIT Internal Medicine Pulmonary Disease; ATTEND Internal Medicine